=== PATIENT | female | born 1940 | race Caucasian/White ===

== ENCOUNTER 2017-10-15 10:48 | Inpatient (IN) | payer MEDICARE, OTHER ==
[2017-10-15] MEDS: NORMAL SALINE 1000 ML 1,000 ML IV PRN ×3 (10:54→20:40)
[2017-10-15] MEDS ORDERED: PROPOFOL 100 ML IV ONE (11:08)
[2017-10-15] MEDS ORDERED: FENTANYL CITRATE INJ/PF 100 MCG/2 ML AMPUL IV ONE (11:11)
[2017-10-15] MEDS ORDERED: ROCURONIUM BROMIDE INJ 50 MG/5 ML VIAL IV ONE ×2 (11:11→15:46)
[2017-10-15] MEDS ORDERED: ETOMIDATE INJ/PF 20 MG/10 ML SDV IV ONE (11:11)
[2017-10-15] MEDS ORDERED: VANCOMYCIN HCL INJ 1000 MG VIAL IV ONE (11:14)
[2017-10-15] MEDS ORDERED: PIPERACILLIN/TAZOBACTAM 3.375 GM VIAL IV ONE (11:14)
[2017-10-15] MEDS ORDERED: EPINEPHRINE INJ 1 MG/10 ML DISP.SYRIN ONE (11:21)
--- NOTE | 2017-10-15 11:27 | ER Document Report ---
ED Respiratory Problem - General Chief Complaint: Shortness Of Breath Stated Complaint: RESPIRATORY FAILURE Time Seen by Provider: 10/15/17 10:58 Notes: History obtained from EMS and family members. The patient is a 77-year-old female, past medical history lung cancer (Stage IV but stable), current smoker, COPD, presents from home after she was found to be confused and having difficulty breathing this morning by her family members. Patient was admitted to [facility] last week for pneumonia and she was discharged last night on 3 L nasal cannula. When the family members visit her this morning, they noticed cigarettes and the patient not responding. EMS was called. The patient was found to be 75% on her home 3 L nasal cannula with shallow breaths. She was bagged in route to the hospital. She was given 2 DuoNeb's and 125 mg Solu-Medrol by EMS prior to arrival. Patient arrives to the ER opening her eyes, but not following commands. She is also tachypneic in respiratory distress. - Related Data Allergies/Adverse Reactions: No Known Allergies Allergy (Verified 05/06/13 09:35) Past Medical History - General Information source: Relative, Outside Facility Records Cannot obtain history due to: Unstable vital signs - Social History Smoking Status: Current Every Day Smoker Family History: Reviewed & Not Pertinent - Past Medical History Cardiac Medical History: Reports: Hx Heart Attack Past Surgical History: Reports: Hx Cardiac Catheterization - stent in neck, Hx Cholecystectomy - Immunizations Hx Diphtheria, Pertussis, Tetanus Vaccination: Yes Review of Systems - Review of Systems -: Yes ROS unobtainable due to patient's medical condition Physical Exam - Vital signs Vitals: Resp BP Pulse Ox 23 H 150/79 H 100 10/15/17 10:55 10/15/17 10:55 10/15/17 10:55 - Notes Notes: PHYSICAL EXAMINATION: GENERAL: Ill-appearing. Respiratory distress. HEAD: Atraumatic, normocephalic. EYES: Pupils equal round and reactive to light, sclera anicteric, conjunctiva are normal. ENT: nares patent, oropharynx clear without exudates. Dry mucous membranes. NECK: Normal range of motion, supple without lymphadenopathy LUNGS: Tachypneic, shallow breaths, diffuse wheezing, decreased RLL lung sounds. HEART: Regular rate and rhythm without murmurs ABDOMEN: Soft, nontender, normoactive bowel sounds. No guarding, no rebound. No masses appreciated. EXTREMITIES: Normal range of motion, no pitting or edema. Strong distal pulses. NEUROLOGICAL: Opens eyes, does not follow commands, moves all 4 extremities SKIN: Cool, mottled. Course - Re-evaluation Re-evalutation: Patient seen immediately on arrival. With a history of stage IV lung cancer, unsure of patient's wishes. Family members cannot be easily contacted so decision was made to intubate for airway protection and due to altered mental status. She had a transient episode of hypotension that occurred after intubation and she was given small doses of push dose epinephrine. Her blood work returned as severe hypercapnic respiratory acidosis, which may have been leading to her altered mental status. She also has a right lower lobe mass and a possible infiltrate. Patient's white count is normal and lactate is normal. She is hypothermic, but the family members found her naked this morning. At this time, do not suspect pneumonia leading to her symptoms. However, broad- spectrum antibiotics were started on arrival due to patient's recent hospitalization and severe SOB. Family members came to ED after 1.5 hours since patient arrived. Spoke to family members about patient's wishes. Yesterday, her hospitalist at [facility] asked if she would want CPR and defibrillation. She agreed to this. When asked if she would want intubation, she said that she would have to think about it. 10/15/17 13:[address] Weber and will admit patient to ICU. - Vital Signs Vital signs: Temp Pulse Resp BP Pulse Ox 91.4 F L 12 94/47 L 100 10/15/17 12:30 10/15/17 12:30 10/15/17 12:30 10/15/17 12:30 - Laboratory Result Diagrams: 10/15/17 11:25 10/15/17 11:25 Laboratory results interpreted by me: 10/15/17 10/15/17 10/15/17 10:58 11:25 11:25 RBC 3.63 L Hgb 10.8 L Hct 33.4 L RDW 15.4 H Seg Neutrophils % 86.1 H Lymphocytes % 6.0 L Absolute Lymphocytes 0.4 L VBG pH VBG pCO2 VBG HCO3 Sodium 136.1 L Carbon Dioxide 33 H Anion Gap 4 L BUN 21 H Glucose 133 H POC Glucose 146 H Calcium 8.1 L Total Protein 4.5 L Albumin 2.4 L Urine Protein 10/15/17 10/15/17 11:25 11:30 RBC Hgb Hct RDW Seg Neutrophils % Lymphocytes % Absolute Lymphocytes VBG pH 7.11 L* VBG pCO2 119.6 H* VBG HCO3 37.1 H Sodium Carbon Dioxide Anion Gap BUN Glucose POC Glucose Calcium Total Protein Albumin Urine Protein 30 H - Diagnostic Test Radiology reviewed: Image reviewed, Reports reviewed Radiology results interpreted by me: CXR: ROUNDED DENSITY IN THE RIGHT LOWER LOBE SECONDARY TO MASS AND/OR INFILTRATE. LIFE LINES DESCRIBED. - EKG Interpretation by Me EKG shows normal: Sinus rhythm, [place], Intervals, QRS Complexes Additional EKG results interpreted by me: No STEMI Procedures - Intubation Orotracheal Time of Intubation: 11:27 Airway evaluation: Normal anatomy Mallampati Classification: Class 1 Medications: Etomidate, Fentanyl, Other - Rocuronium Intubation method: Orotracheal Blade type: John Blade size: 3 Equipment used: Glidescope ETT size: 7.5 ETT secured at: Lips ETT secured at (cm): 22 Breath Sounds after Intubation: Equal End tidal CO2 confirmed: Yes Ventilator settings: AC Tidal volume: 450 FiO2: 40 Respirations: 14 PEEP: 5 Post Intubation Xray: Yes Intubation Complications: No complications Critical Care Note - Critical Care Note Total time excluding time spent on procedures (mins): 65 Discharge - Discharge Clinical Impression: Respiratory failure with hypoxia and hypercapnia Qualifiers: Chronicity: acute on chronic Qualified Code(s): J96.21 - Acute and chronic respiratory failure with hypoxia Hypothermia Qualifiers: Encounter type: initial encounter Qualified Code(s): T68.XXXA - Hypothermia, initial encounter Condition: Critical Disposition: ADMITTED INPATIENT Admitting Provider: Hospitalist - [facility] Unit Admitted: ICU Referrals: BOUBACAR ACEVEDO MD [Primary Care Provider] - Follow up as needed
--- NOTE | 2017-10-15 11:27 | RADIOLOGY REPORT (SQ) ---
EXAM DESCRIPTION: CHEST SINGLE VIEW COMPLETED DATE/TIME: 10/15/2017 11:19 am REASON FOR STUDY: bed t1 sepsis protocol COMPARISON: None. EXAM PARAMETERS: NUMBER OF VIEWS: One view. TECHNIQUE: Single frontal radiographic view of the chest acquired. RADIATION DOSE: NA LIMITATIONS: None. FINDINGS: LUNGS AND PLEURA: 5 cm rounded density in the right lower lobe. Left lung clear. MEDIASTINUM AND HILAR STRUCTURES: No masses. Contour normal. HEART AND VASCULAR STRUCTURES: Heart normal in size. Normal vasculature. BONES: No acute findings. HARDWARE: Endotracheal tube with the tip located 3 cm proximal to the josé miguel. Nasogastric tube with the tip in the stomach. Surgical clips in the left axilla. OTHER: No other significant finding. IMPRESSION: ROUNDED DENSITY IN THE RIGHT LOWER LOBE SECONDARY TO MASS AND/OR INFILTRATE. LIFE LINES DESCRIBED. TECHNICAL DOCUMENTATION: JOB ID: [id number] [employer]- All Rights Reserved
[2017-10-15 11:59] LABS: ABSOLUTE LYMPHOCYTES (AUTO) 0.4 10^3/uL (0.5-4.7); ABSOLUTE MONOCYTES (AUTO) 0.5 10^3/uL (0.1-1.4); ABSOLUTE NEUT (AUTO) 5.7 10^3/uL (1.7-8.2); BASOPHILS % (AUTO) 0.1 % (0-2); HEMATOCRIT 33.4 % (36.0-47.0); HEMOGLOBIN 10.8 g/dL (12.0-15.5); MEAN CORPUSCULAR HEMOGLOBIN 29.9 pg (27.0-33.4); MEAN CORPUSCULAR HGB CONC 32.5 g/dL (32.0-36.0); MEAN CORPUSCULAR VOLUME 92 fl (80-97); MONOCYTES % (AUTO) 7.8 % (3-13); PLATELET COUNT 164 10^3/uL (150-450); RED BLOOD COUNT 3.63 10^6/uL (3.72-5.28); RED CELL DISTRIBUTION WIDTH 15.4 % (11.5-14.0); SEGMENTED NEUTROPHILS % (AUTO) 86.1 % (42-78); TOTAL CELLS COUNTED % (AUTO) 100 %; WHITE BLOOD COUNT 6.6 10^3/uL (4.0-10.5)
[2017-10-15 12:01] LABS: VENOUS BLOOD BASE EXCESS 4.1 mmol/L; VENOUS BLOOD HCO3 37.1 mmol/L (20-32)
[2017-10-15] MEDS ORDERED: KETAMINE HCL INJ 500 MG/10 ML VIAL ONE (12:02)
[2017-10-15 12:08] LABS: PROTHROMBIN TIME 13.9 SEC (11.4-15.4)
[2017-10-15 12:09] LABS: VENOUS BLOOD PCO2 119.6 mmHg (35-63); VENOUS BLOOD PH 7.11 (7.30-7.42)
[2017-10-15 12:21] LABS: ALBUMIN 2.4 g/dL (3.5-5.0); BILIRUBIN,DIRECT 0.3 mg/dL (0.0-0.4); BILIRUBIN,TOTAL 0.3 mg/dL (0.2-1.3); CALCIUM 8.1 mg/dL (8.4-10.2); GLUCOSE 133 mg/dL (75-110); TOTAL PROTEIN 4.5 g/dL (6.3-8.2)
[2017-10-15] MEDS ORDERED: IPRATROPIUM/ALBUTEROL 0.5-2.5 MG/3 ML AMPUL NEB ONE (12:24)
[2017-10-15] MEDS ORDERED: EPINEPHRINE INJ 1 MG/10 ML DISP.SYRIN IV ONE (12:24)
[2017-10-15 12:28] LABS: APPEARANCE,URINE CLEAR; BILIRUBIN,URINE NEGATIVE (NEGATIVE); COLOR,URINE YELLOW; GLUCOSE, URINE NEGATIVE (NEGATIVE); KETONES,URINE NEGATIVE (NEGATIVE); LEUKOCYTE ESTERASE,URINE NEGATIVE (NEGATIVE); NITRITE,URINE NEGATIVE (NEGATIVE); PROTEIN,URINE 30 mg/dL (NEGATIVE); URINE SPECIFIC GRAVITY 1.014; UROBILINOGEN,URINE NEGATIVE mg/dL (<2.0)
[2017-10-15 12:31] LABS: CARBON DIOXIDE 33 mmol/L (22-30); CHLORIDE 99 mmol/L (98-107); SODIUM 136.1 mmol/L (137-145)
[2017-10-15 12:34] LABS: ANION GAP 4 (5-19)
[2017-10-15 12:35] LABS: ALANINE AMINOTRANSFERASE 39 U/L (9-52); ALKALINE PHOSPHATASE 51 U/L (38-126); ASPARTATE AMINO TRANSFERASE 34 U/L (14-36); BLOOD UREA NITROGEN 21 mg/dL (7-20); POTASSIUM 4.3 mmol/L (3.6-5.0)
[2017-10-15] MEDS ORDERED: ONDANSETRON HCL INJ/PF 4 MG/2 ML SDV IV PRN (13:21)
[2017-10-15] MEDS ORDERED: VANCOMYCIN HCL 0 MG in DEXTROSE 5%-WATER 250 ML IV NR (14:00)
[2017-10-15] MEDS ORDERED: MEROPENEM 1 GM VIAL IV SCH (14:00)
[2017-10-15] MEDS ORDERED: NORMAL SALINE 1000 ML 1,000 ML IV PRN ×2 (14:33→15:55)
[2017-10-15] MEDS: IPRATROPIUM/ALBUTEROL 0.5-2.5 MG/3 ML AMPUL NEB SCH ×2 (14:40→19:59)
[2017-10-15] MEDS ORDERED: MIDAZOLAM HCL 50 MG/100 ML RTUINJ IV ONE (15:04)
--- NOTE | 2017-10-15 15:23 | RADIOLOGY REPORT (SQ) ---
EXAM DESCRIPTION: CTA CHEST COMPLETED DATE/TIME: 10/15/2017 2:58 pm REASON FOR STUDY: acute on chronic respiratory failure COMPARISON: Chest x-ray dated 10/15/2017. TECHNIQUE: CT scan of the chest performed using helical scanning technique with dynamic intravenous contrast injection. Images reviewed with lung, soft tissue and bone windows. Reconstructed coronal and sagittal MPR images reviewed. Additional 3 dimensional post-processing performed to develop Maximal Intensity Projection images (NC P). All images stored on PACS. All CT scanners at this facility use dose modulation, iterative reconstruction, and/or weight based d osing when appropriate to reduce radiation dose to as low as reasonably achievable (ALARA). [facility]: Dose Right [facility]: CareDose [facility]: Dose Right [facility]: Teradose 4D [facility]: ReFashioner CONTRAST TYPE AND DOSE: contrast/concentration: Isovue 370.00 mg/ml; Total Contrast Delivered: 63.0 ml; Total Saline Delivered: 80.0 ml Contrast bolus adequate for pulmonary arteries and aorta. RENAL FUNCTION: BUN 21 creatinine 0.53. RADIATION DOSE: CT Rad equipment meets quality standard of care and radiation dose reduction techniq ues were employed. CTDIvol: 14.3 - 16.5 mGy. DLP: 565 mGy-cm. . LIMITATIONS: None. FINDINGS: LUNGS AND PLEURA: Emphysematous changes. Chronic scarring. Irregular soft tissue mass in the left apex. Transverse measurements 2.6 x 3.3 cm and craniocaudal measurement 1.2 cm. Irregular cavitary mass in the anterior right lower lobe. Transverse measurements 4.3 x 4.8 cm. Thickened ir regular wall. Bilateral pleural effusions. AORTA AND GREAT VESSELS: No aneurysm. No dissection. HEART: No pericardial effusion. No significant coronary artery calcifications. PULMONARY ARTERIES: No emboli visualized in the main pulmonary arteries or the segmental branches. HILAR AND MEDIASTINAL STRUCTURES: No identified masses or abnormal nodes. HARDWARE: Endotracheal tube. Nasogastric tube. Clips in the soft tissues on the left. UPPER ABDOMEN: No significant findings. Limited exam. THYROID AND OTHER SOFT TISSUES: No masses. No adenopathy. BONES: No acute or significant finding. 3D MIPS: Confirm above findings. OTHER: No other significant finding. IMPRESSION: 1. NORMAL CTA OF THE CHEST. NO PULMONARY EMBOLI. 2. CAVITARY MASS IN THE ANTERIOR RIGHT LOWER LOBE WITH IRREGULAR THICKENED WALL. THIS PROBABLY REPRE SENTS NECROTIC TUMOR ALTHOUGH CAVITARY PNEUMONIA COULD BE POSSIBLE. 3. IRREGULAR SOFT TISSUE MASS IN THE APEX OF THE LEFT CHEST. THIS COULD REPRESENT APICAL SCARRING AL THOUGH MALIGNANT PROCESS SUSPECTED. 4. CHRONIC EMPHYSEMATOUS CHANGES WITH SCARRING. BILATERAL PLEURAL EFFUSIONS. COMMENT: Quality ID # [id number]: Final reports with documentation of one or more dose reduction techniques (e.g., Automated exposure control, adjustment of the mA and/or kV according to patient size, use of iterative reconstruction technique) TECHNICAL DOCUMENTATION: JOB ID: [id number] [employer]- All Rights Reserved
[2017-10-15 15:30] LABS: ARTERIAL BLOOD BASE EXCESS 5.8 mmol/L; ARTERIAL BLOOD H2CO3 2.72 mmol/L (1.05-1.35); ARTERIAL BLOOD HCO3 35.9 mmol/L (20-26); ARTERIAL BLOOD O2 SATURATION 63.1 % (94-98); ARTERIAL BLOOD PH 7.22 (7.35-7.45); ARTERIAL BLOOD TOTAL CO2 38.7 mmol/L (21-25)
[2017-10-15 15:31] LABS: ARTERIAL BLOOD FIO2 40%
[2017-10-15 15:33] LABS: ARTERIAL BLOOD PCO2 90.3 mmHg (35-45); ARTERIAL BLOOD PO2 40.9 mmHg (80-100)
[2017-10-15] MEDS: MIDAZOLAM HCL 50 MG/100 ML RTUINJ IV PRN (15:55)
[2017-10-15 15:58] LABS: INTERNATIONAL RATION (INR) 0.91; PROTHROMBIN TIME 12.9 SEC (11.4-15.4)
[2017-10-15 15:59] LABS: PARTIAL THROMBOPLASTIN TIME 25.5 SEC (23.5-35.8)
[2017-10-15] MEDS ORDERED: NORMAL SALINE 1000 ML 1,000 ML IV ONE (16:30)
[2017-10-15] MEDS ORDERED: NOREPINEPHRINE BITARTRATE INJ/PF 4 MG/4 ML SDV IV ONE (16:57)
[2017-10-15] MEDS ORDERED: DEXTROSE 5%-WATER 250 ML with NOREPINEPHRINE BITARTRATE 4 MG IV PRN ×2 (17:00)
--- NOTE | 2017-10-15 17:03 | PDOC H&P ---
History of Present Illness Admission Date/PCP: 10/15/17 13:46 BOUBACAR ACEVEDO MD Patient complains of: Unable to obtain since intubated History of Present Illness: SERGEI KENNEDY is a 77 year old female arrived to ED via EMS. Accordingly, EMS was called because patient was found by family on the floor and was unresponsive. On arrival of EMS patient was still unresponsive but was breathing. They bagged the patient until arrival to emergency room. Since there was not much improvement on overall patient status, patient was intubated. Patient was also hypothermic. Patient was discharged on October 14 from [facility] where she had an extended stay which included mechanical ventilation and treatment for pneumonia. Is my understanding that upen returning back home patient went back to smoking. Patient does have a history of stage IV lung cancer. At the time of evaluation no family members were at bedside. History gathering had been through ED physician and nursing staff. Past Medical History Cardiac Medical History: Reports: Myocardial Infarction EENT Medical History: Reports: None Neurological Medical History: Reports: None Endocrine Medical History: Reports: None Renal/ Medical History: Reports: None Malignancy Medical History: Reports: Lung Cancer Skin Medical History: Reports: None Psychiatric Medical History: Reports: None Traumatic Medical History: Reports: None Hematology: Reports: None Infectious Medical History: Reports: None Past Surgical History Past Surgical History: Reports: Cardiac Catheterization - stent in neck, Cholecystectomy Social History Smoking Status: Current Every Day Smoker - Advance Directive Resuscitation Status: Full Code Family History Family History: Reviewed & Not Pertinent Parental Family History Reviewed: Yes Children Family History Reviewed: Yes Sibling(s) Family History Reviewed.: Yes Medication/Allergy Home Medications: Albuterol Sulfate [Ventolin 0.083% Neb 2.5 mg/3 mL Ampul] 3 ml NEB Q4 10/15/17 Alprazolam [Xanax 0.25 mg Tablet] 0.25 mg PO Q8 10/15/17 Atenolol [Tenormin 50 mg Tablet] 50 mg PO DAILY 10/15/17 Simvastatin [Zocor 80 mg Tablet] 80 mg PO DAILY 10/15/17 Solifenacin Succinate [Vesicare] 5 mg PO DAILY 10/15/17 Tiotropium Henderson [Spiriva Handihaler 5 Cap/Kit (18 Mcg/Cap)] 1 puff IH DAILY 10/15/17 Allergies/Adverse Reactions: No Known Allergies Allergy (Verified 05/06/13 09:35) Review of Systems ROS unobtainable: Due to endotracheal tube Physical Exam Vital Signs: Temp Pulse Resp BP Pulse Ox 92.3 F L 12 119/58 L 98 10/15/17 13:15 10/15/17 13:15 10/15/17 13:15 10/15/17 13:15 General appearance: PRESENT: other - sedated Head exam: PRESENT: atraumatic, normocephalic Eye exam: PRESENT: conjunctiva pink, EOMI, PERRLA Ear exam: PRESENT: normal external ear exam, TM's normal bilaterally Neck exam: ABSENT: JVD, lymphadenopathy, thyromegaly Respiratory exam: PRESENT: crackles, decreased breath sounds Cardiovascular exam: PRESENT: RRR. ABSENT: diastolic murmur, systolic murmur Vascular exam: PRESENT: normal capillary refill GI/Abdominal exam: PRESENT: normal bowel sounds, soft - 3+ pitting edema Neurological exam: PRESENT: other - sedated Skin exam: PRESENT: pallor Results Impressions: Chest X-Ray 10/15/17 10:54 IMPRESSION: ROUNDED DENSITY IN THE RIGHT LOWER LOBE SECONDARY TO MASS AND/OR INFILTRATE. LIFE LINES DESCRIBED. Assessment & Plan - Diagnosis (1) Acute and chronic respiratory failure ([id number]) Qualifiers: Respiratory failure complication: hypoxia and hypercapnia Qualified Code(s) : J96.21 - Acute and chronic respiratory failure with hypoxia; J96.22 - Acute and chronic respiratory failure with hypercapnia; J96.22 - Acute and chronic respiratory failure with hypercapnia; J96.22 - Acute and chronic respiratory failure with hypercapnia Is this a current diagnosis for this admission?: Yes Plan: We will continue ventilatory support and will consult Dr. Boston to assist (2) Septic shock Is this a current diagnosis for this admission?: Yes Plan: Will start patient on norepinephrine and continue IV fluid resuscitation. (3) Lung cancer Qualifiers: Lung location: overlapping sites Is this a current diagnosis for this admission?: Yes Plan: CTA of the lung was ordered and there is extensive involvement in the right and left lung. Will address this issue with family when available since probably patient may benefit from hospice (4) Pneumonia Qualifiers: Pneumonia type: due to unspecified organism Laterality: unspecified laterality Lung location: unspecified part of lung Qualified Code(s): J18.9 - Pneumonia, unspecified organism Is this a current diagnosis for this admission?: Yes Plan: Patient will be continued on vancomycin and will place on meropenem (5) Tobacco abuse Is this a current diagnosis for this admission?: Yes Plan: Patient recuperates will provide counseling (6) COPD (chronic obstructive pulmonary disease) Qualifiers: COPD type: emphysema Emphysema type: unspecified Qualified Code(s): J43.9 - Emphysema, unspecified Is this a current diagnosis for this admission?: Yes Plan: Patient will be placed on DuoNeb's and IV steroids - Time Time Spent: 50 to 70 Minutes Medications reviewed and adjusted accordingly: Yes Anticipated discharge: Other - Unable to tell at this time but probably patient may be placed on hospice Within: Other - At the present time medical condition is critical and there is a possibility that patient may pass - Inpatient Certification Based on my medical assessment, after consideration of the patient's comorbidities, presenting symptoms, or acuity I expect that the services needed warrant INPATIENT care.: Yes I certify that my determination is in accordance with my understanding of Medicare's requirements for reasonable and necessary INPATIENT services [42 CFR 412.3e].: Yes Medical Necessity: Need Close Monitoring Due to Risk of Patient Decompensation, Need For IV Fluids, Need For Continuous Telemetry Monitoring, Need for Nebulizer Therapy and Monitoring of Response, Need for IV Antibiotics
[2017-10-15] MEDS: MEROPENEM 1 GM in NORMAL SALINE 50 ML IV SCH (17:57)
[2017-10-15] MEDS: METHYLPREDNISOLONE INJ 40 MG/1 ML SDV IV SCH (17:57)
[2017-10-15] MEDS ORDERED: MEROPENEM 1 GM in NORMAL SALINE 100 ML IV SCH (18:00)
[2017-10-15] MEDS: PANTOPRAZOLE SODIUM 40 MG VIAL IV SCH (18:00)
[2017-10-15] MEDS: HEPARIN SOD (PORCINE) 5,000 UNIT/ML 1 ML SYRINGE SUBCUT SCH (18:01)
[2017-10-15 18:20] LABS: ARTERIAL BLOOD BASE EXCESS 4.8 mmol/L; ARTERIAL BLOOD HCO3 33.3 mmol/L (20-26); ARTERIAL BLOOD O2 SATURATION 81.9 % (94-98); ARTERIAL BLOOD PO2 52.1 mmHg (80-100); ARTERIAL BLOOD TOTAL CO2 35.5 mmol/L (21-25)
[2017-10-15 18:21] LABS: ARTERIAL BLOOD FIO2 40%
[2017-10-15 18:23] LABS: ARTERIAL BLOOD PCO2 69.8 mmHg (35-45)
[2017-10-15] MEDS: PROPOFOL 100 ML IV PRN (18:46)
--- NOTE | 2017-10-15 20:13 | OPERATIVE REPORT E ---
Operative Report NAME: SERGEI KENNEDY : 1940 AGE: 77Y DATE OF SURGERY: 10/15/2017 ROOM: ED70 PREOPERATIVE DIAGNOSIS: PATIENT WITH HYPOTENSION WITH MULTIPLE MEDICAL ISSUES. EMERGENCY ROOM CONSULTATION FOR INSERTION OF CENTRAL VENOUS CATHETER FOR IV MEDICATION ADMINISTRATION AND ALSO FOR CENTRAL LINE ACCESS. POSTOPERATIVE DIAGNOSIS: PATIENT WITH HYPOTENSION WITH MULTIPLE MEDICAL ISSUES. EMERGENCY ROOM CONSULTATION FOR INSERTION OF CENTRAL VENOUS CATHETER FOR IV MEDICATION ADMINISTRATION AND ALSO FOR CENTRAL LINE ACCESS. OPERATION: Insertion of triple-lumen central line catheter through right internal jugular vein. SURGEON: CORINNA ALLRED M.D. ANESTHESIA: 1% lidocaine local. TISSUE REMOVED OR ALTERED: PROCEDURE: Procedure done at the bedside in the emergency room, after obtaining consent from patient's family. Patient was placed in a Trendelenburg position. Neck and upper chest wall cleaned and draped in sterile field. After 1% lidocaine infiltrated, with sterile technique, an intravascular ultrasound was performed. Right side internal jugular vein was identified and then it was accessed by using Seldinger technique. Through the needle, a guidewire was passed into the superior vena cava. Over the guidewire, tract was dilated, and then through the dilator tract, over the guidewire, a triple-lumen catheter inserted into the superior vena cava. Excellent venous flow through all the 3 lumens of catheter. All 3 lumens flushed with heparinized solution and catheter was secured in place. Dressings were applied. The patient tolerated the procedure very well. DICTATING PHYSICIAN: CORINNA ALLRED M.D. [id number] PHY#: [id number] 1945 ID: [id number] JOB#: [id number] ACCT: [id number] cc:CORINNA ALLRED M.D. >
--- NOTE | 2017-10-15 20:45 | RADIOLOGY REPORT (SQ) ---
EXAM DESCRIPTION: CHEST SINGLE VIEW COMPLETED DATE/TIME: 10/15/2017 7:55 pm REASON FOR STUDY: Verify placement of central line COMPARISON: CT 10/15/2017 EXAM PARAMETERS: NUMBER OF VIEWS: One view. TECHNIQUE: Single frontal radiographic view of the chest acquired. RADIATION DOSE: NA LIMITATIONS: None. FINDINGS: LUNGS AND PLEURA: Stable pulmonary exam again demonstrating a cavitary lesion within the r ight lower lobe. No pneumothorax. MEDIASTINUM AND HILAR STRUCTURES: No masses. Contour normal. HEART AND VASCULAR STRUCTURES: Heart normal in size. Normal vasculature. BONES: No acute findings. HARDWARE: An endotracheal tube terminates approximately 2 cm cranial to the josé miguel. An enteric tube is seen along the expected course of the esophagus with the tip and proximal port projecting subdiaph ragmatically within the left upper quadrant. A right cervical central vascular access catheter termi nates in the region of the superior vena cava. OTHER: Left axillary and left cervicothoracic surgical clips. IMPRESSION: 1. Stable pulmonary exam again demonstrating a cavitary lesion within the right lower l obe. 2. Endotracheal tube, enteric tube, and central vascular access catheter without evidence of complic ation. TECHNICAL DOCUMENTATION: JOB ID: [id number] [employer]- All Rights Reserved
[2017-10-16] MEDS: IPRATROPIUM/ALBUTEROL 0.5-2.5 MG/3 ML AMPUL NEB SCH ×4 (02:03→19:51)
[2017-10-16] MEDS: NORMAL SALINE 1000 ML 1,000 ML IV PRN (04:09)
[2017-10-16] MEDS: MEROPENEM 1 GM in NORMAL SALINE 50 ML IV SCH (04:09)
[2017-10-16] MEDS: METHYLPREDNISOLONE INJ 40 MG/1 ML SDV IV SCH ×3 (04:10→23:43)
[2017-10-16] MEDS: HEPARIN SOD (PORCINE) 5,000 UNIT/ML 1 ML SYRINGE SUBCUT SCH ×3 (04:10→17:23)
[2017-10-16 04:15] LABS: BLOOD UREA NITROGEN 15 mg/dL (7-20); CALCIUM 8.9 mg/dL (8.4-10.2); CARBON DIOXIDE 31 mmol/L (22-30); CHLORIDE 101 mmol/L (98-107); GLUCOSE 126 mg/dL (75-110); PHOSPHORUS 2.7 mg/dL (2.5-4.5); POTASSIUM 4.3 mmol/L (3.6-5.0); SODIUM 135.9 mmol/L (137-145)
[2017-10-16 04:29] LABS: ANION GAP 4 (5-19)
[2017-10-16] MEDS ORDERED: PROPOFOL 100 ML IV PRN (04:44)
[2017-10-16 05:29] LABS: ABSOLUTE LYMPHOCYTES (AUTO) 0.9 10^3/uL (0.5-4.7); ABSOLUTE MONOCYTES (AUTO) 1.3 10^3/uL (0.1-1.4); ABSOLUTE NEUT (AUTO) 11.5 10^3/uL (1.7-8.2); BASOPHILS % (AUTO) 0.1 % (0-2); HEMATOCRIT 35.2 % (36.0-47.0); HEMOGLOBIN 11.5 g/dL (12.0-15.5); LYMPHOCYTES % (AUTO) 6.9 % (13-45); MEAN CORPUSCULAR HEMOGLOBIN 29.7 pg (27.0-33.4); MEAN CORPUSCULAR HGB CONC 32.7 g/dL (32.0-36.0); MEAN CORPUSCULAR VOLUME 91 fl (80-97); MONOCYTES % (AUTO) 9.4 % (3-13); PLATELET COUNT 178 10^3/uL (150-450); RED BLOOD COUNT 3.87 10^6/uL (3.72-5.28); RED CELL DISTRIBUTION WIDTH 15.4 % (11.5-14.0); SEGMENTED NEUTROPHILS % (AUTO) 83.6 % (42-78); TOTAL CELLS COUNTED % (AUTO) 100 %
[2017-10-16] MEDS: PROPOFOL 100 ML IV PRN ×3 (05:35→23:41)
[2017-10-16 05:36] LABS: ARTERIAL BLOOD BASE EXCESS 6.3 mmol/L; ARTERIAL BLOOD H2CO3 1.93 mmol/L (1.05-1.35); ARTERIAL BLOOD HCO3 33.9 mmol/L (20-26); ARTERIAL BLOOD O2 SATURATION 97.3 % (94-98); ARTERIAL BLOOD PH 7.34 (7.35-7.45); ARTERIAL BLOOD PO2 104.1 mmHg (80-100); ARTERIAL BLOOD TOTAL CO2 35.9 mmol/L (21-25)
[2017-10-16 05:40] LABS: ARTERIAL BLOOD FIO2 40%
[2017-10-16 05:46] LABS: WHITE BLOOD COUNT 13.8 10^3/uL (4.0-10.5)
--- NOTE | 2017-10-16 06:46 | RADIOLOGY REPORT (SQ) ---
EXAM DESCRIPTION: CHEST SINGLE VIEW CLINICAL HISTORY: Respiratory failure COMPARISON: 10/15/2017 FINDINGS: Single frontal view of the chest. Atherosclerotic calcification aortic arch. Heart is not enlarged. NG tube curled within the abdomen. Right IJ central venous catheter tip in SVC. Endotracheal tube with tip midway between the clavicles and josé miguel. Postoperative change of the left axillary region. Left lung is relatively clear. Rounded opacity in the right lung base. No large effusion or pneumothorax. No acute osseous abnormality. Upper abdominal soft tissues are unremarkable. IMPRESSION: Stable appearance. Tubes and lines as detailed above.
[2017-10-16] MEDS ORDERED: INFLUENZA ADLT QUAD (36MOS+) 2017-18 VAC 0.5 ML SYR IM PRN (06:50)
--- NOTE | 2017-10-16 09:02 | EKG REPORT ---
SEVERITY:- ABNORMAL ECG - SINUS RHYTHM PROBABLE ANTEROSEPTAL INFARCT, AGE INDETERM LATERAL LEADS ARE ALSO INVOLVED : Confirmed by: Kwaku Landis 16-Oct-2017 09:01:27
--- NOTE | 2017-10-16 09:57 | PDOC PROGRESS REPORT ---
Subjective Progress Note for:: 10/16/17 Subjective:: Unable to take complaints since intubated and sedated Review of system Unable to obtain since intubated and sedated All significant laboratories and diagnostics have been reviewed Reason For Visit: ACUTE ON CHRONIC RESPIRATORY FAILURE Physical Exam Vital Signs: Temp Pulse Resp BP Pulse Ox 97.7 F 70 12 130/58 H 98 10/16/17 07:09 10/16/17 02:03 10/16/17 06:32 10/16/17 06:32 10/16/17 06:32 Intake & Output 10/15/17 10/16/17 10/17/17 06:59 06:59 06:59 Intake Total 1429 Output Total 1480 45 Balance -51 -45 Weight 62.3 kg General appearance: PRESENT: other - Sedated Head exam: PRESENT: atraumatic, normocephalic Eye exam: PRESENT: conjunctiva pink, EOMI, PERRLA Neck exam: PRESENT: full ROM. ABSENT: JVD, lymphadenopathy Respiratory exam: PRESENT: crackles - Soft basilar crackles, decreased breath sounds Cardiovascular exam: PRESENT: RRR. ABSENT: diastolic murmur, systolic murmur Vascular exam: PRESENT: normal capillary refill GI/Abdominal exam: PRESENT: normal bowel sounds, soft, other - Patient sedated and unable to assess for tenderness Extremities exam: PRESENT: other - 3+ edema noted to lower extremity extending to abdominal area. 2+ edema of upper extremities Neurological exam: PRESENT: other - Sedated Results Laboratory Results: 10/16/17 05:12 10/16/17 03:42 10/15/17 10/15/17 10/15/17 15:08 16:10 18:12 WBC RBC Hgb Hct MCV MCH MCHC RDW Plt Count Seg Neutrophils % Lymphocytes % Monocytes % Eosinophils % Basophils % Absolute Neutrophils Absolute Lymphocytes Absolute Monocytes Absolute Eosinophils Absolute Basophils Carbonic Acid 2.72 H 2.10 H HCO3/H2CO3 Ratio 13:1 15:1 ABG pH 7.22 L 7.30 L ABG pCO2 90.3 H* 69.8 H* ABG pO2 40.9 L* 52.1 L ABG HCO3 35.9 H 33.3 H ABG O2 Saturation 63.1 L 81.9 L ABG Base Excess 5.8 4.8 FiO2 40% 40% Sodium Potassium Chloride Carbon Dioxide Anion Gap BUN Creatinine Est GFR ( Amer) Est GFR (Non-Af Amer) Glucose Lactic Acid 1.5 Calcium Phosphorus Magnesium 10/16/17 10/16/17 10/16/17 03:42 03:42 05:12 WBC Cancelled 13.8 H D RBC Cancelled 3.87 Hgb Cancelled 11.5 L Hct Cancelled 35.2 L MCV Cancelled 91 MCH Cancelled 29.7 MCHC Cancelled 32.7 RDW Cancelled 15.4 H Plt Count Cancelled 178 Seg Neutrophils % Cancelled 83.6 H Lymphocytes % Cancelled 6.9 L Monocytes % Cancelled 9.4 Eosinophils % Cancelled 0.0 Basophils % Cancelled 0.1 Absolute Neutrophils Cancelled 11.5 H Absolute Lymphocytes Cancelled 0.9 Absolute Monocytes Cancelled 1.3 Absolute Eosinophils Cancelled 0.0 Absolute Basophils Cancelled 0.0 Carbonic Acid HCO3/H2CO3 Ratio ABG pH ABG pCO2 ABG pO2 ABG HCO3 ABG O2 Saturation ABG Base Excess FiO2 Sodium 135.9 L Potassium 4.3 Chloride 101 Carbon Dioxide 31 H Anion Gap 4 L BUN 15 Creatinine 0.58 Est GFR ( Amer) > 60 Est GFR (Non-Af Amer) > 60 Glucose 126 H Lactic Acid Calcium 8.9 Phosphorus 2.7 Magnesium 1.7 10/16/17 05:22 WBC RBC Hgb Hct MCV MCH MCHC RDW Plt Count Seg Neutrophils % Lymphocytes % Monocytes % Eosinophils % Basophils % Absolute Neutrophils Absolute Lymphocytes Absolute Monocytes Absolute Eosinophils Absolute Basophils Carbonic Acid 1.93 H HCO3/H2CO3 Ratio 17:1 ABG pH 7.34 L ABG pCO2 64.0 H ABG pO2 104.1 H ABG HCO3 33.9 H ABG O2 Saturation 97.3 ABG Base Excess 6.3 FiO2 40% Sodium Potassium Chloride Carbon Dioxide Anion Gap BUN Creatinine Est GFR ( Amer) Est GFR (Non-Af Amer) Glucose Lactic Acid Calcium Phosphorus Magnesium 10/15/17 10/15/17 10/16/17 15:33 21:25 03:42 Troponin I 0.099 0.202 0.150 Impressions: Chest/Abdomen CTA 10/15/17 00:00 IMPRESSION: 1. NORMAL CTA OF THE CHEST. NO PULMONARY EMBOLI. 2. CAVITARY MASS IN THE ANTERIOR RIGHT LOWER LOBE WITH IRREGULAR THICKENED WALL. THIS PROBABLY REPRESENTS NECROTIC TUMOR ALTHOUGH CAVITARY PNEUMONIA COULD BE POSSIBLE. 3. IRREGULAR SOFT TISSUE MASS IN THE APEX OF THE LEFT CHEST. THIS COULD REPRESENT APICAL SCARRING ALTHOUGH MALIGNANT PROCESS SUSPECTED. 4. CHRONIC EMPHYSEMATOUS CHANGES WITH SCARRING. BILATERAL PLEURAL EFFUSIONS. Chest X-Ray 10/16/17 00:00 IMPRESSION: Stable appearance. Tubes and lines as detailed above. Assessment & Plan - Diagnosis (1) Acute and chronic respiratory failure ([id number]) Qualifiers: Respiratory failure complication: hypoxia and hypercapnia Qualified Code(s) : J96.21 - Acute and chronic respiratory failure with hypoxia; J96.22 - Acute and chronic respiratory failure with hypercapnia; J96.22 - Acute and chronic respiratory failure with hypercapnia; J96.22 - Acute and chronic respiratory failure with hypercapnia Is this a current diagnosis for this admission?: Yes Plan: We will continue ventilatory support. Continue current ventilator settings. Dr. Boston consulted to assist (2) Septic shock Is this a current diagnosis for this admission?: Yes Plan: Resolved and to discontinue Levophed. Resolved and to discontinue Levophed (3) Lung cancer Qualifiers: Lung location: overlapping sites Is this a current diagnosis for this admission?: Yes Plan: CTA of the lung was ordered and there is extensive involvement in the right and left lung. Will address this issue with family when available since probably patient may benefit from hospice. To try to obtain records from [place] (4) Pneumonia Qualifiers: Pneumonia type: due to unspecified organism Laterality: unspecified laterality Lung location: unspecified part of lung Qualified Code(s): J18.9 - Pneumonia, unspecified organism Is this a current diagnosis for this admission?: Yes Plan: Patient will be continued on vancomycin and meropenem (5) Tobacco abuse Is this a current diagnosis for this admission?: Yes Plan: Patient recuperates will provide counseling (6) COPD (chronic obstructive pulmonary disease) Qualifiers: COPD type: emphysema Emphysema type: unspecified Qualified Code(s): J43.9 - Emphysema, unspecified Is this a current diagnosis for this admission?: Yes Plan: Continue DuoNeb's and IV steroids. Suspect pulmonary hypertension and will start IV Lasix. Order echocardiogram (7) HTN (hypertension) Qualifiers: Hypertension type: essential hypertension Qualified Code(s): I10 - Essential (primary) hypertension Is this a current diagnosis for this admission?: Yes Plan: Restart Tenormin as outpatient (8) Anasarca Is this a current diagnosis for this admission?: Yes Plan: Start IV Lasix and will order echocardiogram - Time Time Spent with patient: 15-24 minutes Anticipated discharge: Other - to discuss with family Within: within 72 hours - Inpatient Certification Based on my medical assessment, after consideration of the patient's comorbidities, presenting symptoms, or acuity I expect that the services needed warrant INPATIENT care.: Yes I certify that my determination is in accordance with my understanding of Medicare's requirements for reasonable and necessary INPATIENT services [42 CFR 412.3e].: Yes Medical Necessity: Need Close Monitoring Due to Risk of Patient Decompensation, Need for Nebulizer Therapy and Monitoring of Response, Need for IV Antibiotics
[2017-10-16] MEDS ORDERED: (PENDING PHARMACY ID) (Simvastatin [Zocor 80 Mg Tablet] 80 MG) PO SCH (10:00)
[2017-10-16] MEDS ORDERED: VANCOMYCIN HCL 1,250 MG in DEXTROSE 5%-WATER 250 ML IV SCH (10:00)
[2017-10-16] MEDS: FUROSEMIDE INJ/PF 20 MG/2 ML SDV IV SCH ×2 (10:29→23:41)
[2017-10-16] MEDS ORDERED: NORMAL SALINE INJ/PF 0.9% 10 ML SDV IV PRN (10:43)
[2017-10-16] MEDS ORDERED: MEROPENEM 1 GM in NORMAL SALINE 50 ML IV ONE (11:00)
[2017-10-16] MEDS: ATENOLOL 50 MG TABLET PO SCH (11:31)
[2017-10-16] MEDS: POTASSI CL 20 MEQ/D5-1/2NS 1L 1,000 ML IV PRN (11:32)
[2017-10-16] MEDS ORDERED: MIDAZOLAM HCL 50 MG/100 ML RTUINJ IV ONE (11:48)
[2017-10-16] MEDS: VANCOMYCIN HCL 1,250 MG in DEXTROSE 5%-WATER 250 ML IV SCH (11:53)
[2017-10-16] MEDS: MIDAZOLAM HCL 50 MG/100 ML RTUINJ IV PRN (11:54)
[2017-10-16] MEDS: ALPRAZOLAM 0.25 MG TABLET PO SCH ×2 (14:03→22:14)
[2017-10-16] MEDS: PANTOPRAZOLE SODIUM 40 MG VIAL IV SCH (17:22)
[2017-10-16] MEDS: MEROPENEM 1 GM in NORMAL SALINE 100 ML IV SCH (17:23)
[2017-10-16] MEDS: SIMVASTATIN 40 MG TABLET PO SCH (22:15)
[2017-10-17] MEDS: POTASSI CL 20 MEQ/D5-1/2NS 1L 1,000 ML IV PRN ×3 (01:04→21:49)
[2017-10-17] MEDS: IPRATROPIUM/ALBUTEROL 0.5-2.5 MG/3 ML AMPUL NEB SCH ×4 (01:34→20:15)
[2017-10-17] MEDS: HEPARIN SOD (PORCINE) 5,000 UNIT/ML 1 ML SYRINGE SUBCUT SCH ×3 (02:16→17:55)
[2017-10-17] MEDS: MEROPENEM 1 GM in NORMAL SALINE 100 ML IV SCH ×3 (02:16→17:55)
[2017-10-17] MEDS: MIDAZOLAM HCL 50 MG/100 ML RTUINJ IV PRN (06:42)
[2017-10-17] MEDS: ALPRAZOLAM 0.25 MG TABLET PO SCH ×2 (06:42→14:33)
[2017-10-17 07:01] LABS: ABSOLUTE LYMPHOCYTES (AUTO) 0.5 10^3/uL (0.5-4.7); ABSOLUTE MONOCYTES (AUTO) 0.5 10^3/uL (0.1-1.4); ABSOLUTE NEUT (AUTO) 7.9 10^3/uL (1.7-8.2); BASOPHILS % (AUTO) 0.2 % (0-2); HEMATOCRIT 33.6 % (36.0-47.0); HEMOGLOBIN 11.3 g/dL (12.0-15.5); LYMPHOCYTES % (AUTO) 5.3 % (13-45); MEAN CORPUSCULAR HEMOGLOBIN 30.1 pg (27.0-33.4); MEAN CORPUSCULAR HGB CONC 33.7 g/dL (32.0-36.0); MEAN CORPUSCULAR VOLUME 89 fl (80-97); MONOCYTES % (AUTO) 5.6 % (3-13); PLATELET COUNT 141 10^3/uL (150-450); RED BLOOD COUNT 3.77 10^6/uL (3.72-5.28); RED CELL DISTRIBUTION WIDTH 15.4 % (11.5-14.0); SEGMENTED NEUTROPHILS % (AUTO) 88.9 % (42-78); TOTAL CELLS COUNTED % (AUTO) 100 %; WHITE BLOOD COUNT 8.9 10^3/uL (4.0-10.5)
[2017-10-17 07:02] LABS: ARTERIAL BLOOD BASE EXCESS 14.4 mmol/L; ARTERIAL BLOOD H2CO3 1.66 mmol/L (1.05-1.35); ARTERIAL BLOOD HCO3 40.2 mmol/L (20-26); ARTERIAL BLOOD O2 SATURATION 92.5 % (94-98); ARTERIAL BLOOD PCO2 55.2 mmHg (35-45); ARTERIAL BLOOD PH 7.48 (7.35-7.45); ARTERIAL BLOOD PO2 61.1 mmHg (80-100); ARTERIAL BLOOD TOTAL CO2 41.9 mmol/L (21-25)
[2017-10-17 07:12] LABS: ARTERIAL BLOOD FIO2 30%
[2017-10-17 07:15] LABS: BLOOD UREA NITROGEN 13 mg/dL (7-20); CALCIUM 8.9 mg/dL (8.4-10.2); CHLORIDE 91 mmol/L (98-107); GLUCOSE 141 mg/dL (75-110); POTASSIUM 3.2 mmol/L (3.6-5.0); TRIGLYCERIDES 101 mg/dL (<150)
[2017-10-17 07:31] LABS: SODIUM 133.5 mmol/L (137-145)
[2017-10-17 07:43] LABS: ANION GAP 2 (5-19)
[2017-10-17 07:44] LABS: CARBON DIOXIDE 41 mmol/L (22-30)
[2017-10-17] MEDS: PROPOFOL 100 ML IV PRN ×2 (08:12→17:55)
--- NOTE | 2017-10-17 09:43 | RADIOLOGY REPORT (SQ) ---
EXAM DESCRIPTION: CHEST SINGLE VIEW COMPLETED DATE/TIME: 10/17/2017 9:31 am REASON FOR STUDY: resp. failure and pneumonia COMPARISON: 10/16/2017 EXAM PARAMETERS: NUMBER OF VIEWS: One view. TECHNIQUE: Single frontal radiographic view of the chest acquired. RADIATION DOSE: NA LIMITATIONS: None. FINDINGS: LUNGS AND PLEURA: Stable right basilar mass. Stable left apical pleural-based density. N o acute opacities. MEDIASTINUM AND HILAR STRUCTURES: No masses. Contour normal. HEART AND VASCULAR STRUCTURES: Heart normal in size. Normal vasculature. BONES: No acute findings. HARDWARE: With the ETT above the josé miguel. Nasogastric tube tip in the stomach. Venous access cathete r tip at the cavoatrial junction. OTHER: No other significant finding. IMPRESSION: No acute findings. Stable right lung mass. Support devices in expected locations. TECHNICAL DOCUMENTATION: JOB ID: [id number] [employer]- All Rights Reserved
[2017-10-17] MEDS: ATENOLOL 50 MG TABLET PO SCH (11:24)
[2017-10-17] MEDS: FUROSEMIDE INJ/PF 20 MG/2 ML SDV IV SCH (11:29)
[2017-10-17] MEDS: METHYLPREDNISOLONE INJ 40 MG/1 ML SDV IV SCH ×2 (11:29→23:16)
[2017-10-17] MEDS: VANCOMYCIN HCL 1,250 MG in DEXTROSE 5%-WATER 250 ML IV SCH (11:30)
--- NOTE | 2017-10-17 11:41 | PDOC PROGRESS REPORT ---
Subjective Progress Note for:: 10/17/17 Subjective:: Unable to take complaints since intubated and sedated Review of system Unable to obtain since intubated and sedated All significant laboratories and diagnostics have been reviewed Reason For Visit: ACUTE ON CHRONIC RESPIRATORY FAILURE Physical Exam Vital Signs: Temp Pulse Resp BP Pulse Ox 97.5 F 70 14 104/51 L 94 10/17/17 07:14 10/17/17 01:34 10/17/17 03:29 10/17/17 03:29 10/17/17 03:56 Intake & Output 10/16/17 10/17/17 10/18/17 06:59 06:59 06:59 Intake Total 1429 1703 Output Total 1480 4620 325 Balance -51 -2917 -325 Weight 62.3 kg 60.9 kg General appearance: PRESENT: other - sedated Head exam: PRESENT: atraumatic, normocephalic Eye exam: PRESENT: EOMI, PERRLA Neck exam: ABSENT: JVD, lymphadenopathy, tenderness Respiratory exam: PRESENT: clear to auscultation tameka Cardiovascular exam: PRESENT: RRR, systolic murmur. ABSENT: diastolic murmur Vascular exam: PRESENT: normal capillary refill GI/Abdominal exam: PRESENT: normal bowel sounds, soft Extremities exam: PRESENT: full ROM. ABSENT: pedal edema Neurological exam: PRESENT: alert, awake, oriented to person, oriented to place , oriented to time, oriented to situation, CN II-XII grossly intact Psychiatric exam: PRESENT: appropriate affect, normal mood Skin exam: PRESENT: intact, normal color Results Laboratory Results: 10/17/17 06:43 10/17/17 10/17/17 06:43 06:43 WBC 8.9 RBC 3.77 Hgb 11.3 L Hct 33.6 L MCV 89 MCH 30.1 MCHC 33.7 RDW 15.4 H Plt Count 141 L Seg Neutrophils % 88.9 H Lymphocytes % 5.3 L Monocytes % 5.6 Eosinophils % 0.0 Basophils % 0.2 Absolute Neutrophils 7.9 Absolute Lymphocytes 0.5 Absolute Monocytes 0.5 Absolute Eosinophils 0.0 Absolute Basophils 0.0 Carbonic Acid 1.66 H HCO3/H2CO3 Ratio 24:1 ABG pH 7.48 H ABG pCO2 55.2 H ABG pO2 61.1 L ABG HCO3 40.2 H ABG O2 Saturation 92.5 L ABG Base Excess 14.4 FiO2 30% 10/15/17 10/15/17 10/16/17 15:33 21:25 03:42 Troponin I 0.099 0.202 0.150 Impressions: Chest/Abdomen CTA 10/15/17 00:00 IMPRESSION: 1. NORMAL CTA OF THE CHEST. NO PULMONARY EMBOLI. 2. CAVITARY MASS IN THE ANTERIOR RIGHT LOWER LOBE WITH IRREGULAR THICKENED WALL. THIS PROBABLY REPRESENTS NECROTIC TUMOR ALTHOUGH CAVITARY PNEUMONIA COULD BE POSSIBLE. 3. IRREGULAR SOFT TISSUE MASS IN THE APEX OF THE LEFT CHEST. THIS COULD REPRESENT APICAL SCARRING ALTHOUGH MALIGNANT PROCESS SUSPECTED. 4. CHRONIC EMPHYSEMATOUS CHANGES WITH SCARRING. BILATERAL PLEURAL EFFUSIONS. Chest X-Ray 10/16/17 00:00 IMPRESSION: Stable appearance. Tubes and lines as detailed above. Assessment & Plan - Diagnosis (1) Acute and chronic respiratory failure ([id number]) Qualifiers: Respiratory failure complication: hypoxia and hypercapnia Qualified Code(s) : J96.21 - Acute and chronic respiratory failure with hypoxia; J96.22 - Acute and chronic respiratory failure with hypercapnia; J96.22 - Acute and chronic respiratory failure with hypercapnia; J96.22 - Acute and chronic respiratory failure with hypercapnia Is this a current diagnosis for this admission?: Yes Plan: We will continue ventilatory support. Continue current ventilator settings. Dr. Boston consulted to assist. Discontinue versed drip (2) Septic shock Is this a current diagnosis for this admission?: Yes Plan: Resolved (3) Lung cancer Qualifiers: Lung location: overlapping sites Is this a current diagnosis for this admission?: Yes Plan: CTA of the lung was ordered and there is extensive involvement in the right and left lung. (4) Pneumonia Qualifiers: Pneumonia type: due to unspecified organism Laterality: unspecified laterality Lung location: unspecified part of lung Qualified Code(s): J18.9 - Pneumonia, unspecified organism Is this a current diagnosis for this admission?: Yes Plan: Continue meropenem and discontinue vancomycin (5) Tobacco abuse Is this a current diagnosis for this admission?: Yes Plan: Patient recuperates will provide counseling (6) COPD (chronic obstructive pulmonary disease) Qualifiers: COPD type: emphysema Emphysema type: unspecified Qualified Code(s): J43.9 - Emphysema, unspecified Is this a current diagnosis for this admission?: Yes Plan: Continue DuoNeb's and IV steroids. Will decrease Lasix IV. Echocardiogram result pending (7) HTN (hypertension) Qualifiers: Hypertension type: essential hypertension Qualified Code(s): I10 - Essential (primary) hypertension Is this a current diagnosis for this admission?: Yes Plan: Continue current management (8) Anasarca Is this a current diagnosis for this admission?: Yes Plan: Improving. Will decrease Lasix IV (9) Hypokalemia Is this a current diagnosis for this admission?: Yes Plan: Will supplement NG and trend - Time Time Spent with patient: 15-24 minutes Medications reviewed and adjusted accordingly: Yes Anticipated discharge: Home with Homehealth Within: within 72 hours - Inpatient Certification Based on my medical assessment, after consideration of the patient's comorbidities, presenting symptoms, or acuity I expect that the services needed warrant INPATIENT care.: Yes I certify that my determination is in accordance with my understanding of Medicare's requirements for reasonable and necessary INPATIENT services [42 CFR 412.3e].: Yes Medical Necessity: Need Close Monitoring Due to Risk of Patient Decompensation, Need for Nebulizer Therapy and Monitoring of Response, Need for IV Antibiotics
[2017-10-17 12:23] LABS: ARTERIAL BLOOD BASE EXCESS 14.2 mmol/L; ARTERIAL BLOOD FIO2 30%; ARTERIAL BLOOD H2CO3 1.42 mmol/L (1.05-1.35); ARTERIAL BLOOD HCO3 38.6 mmol/L (20-26); ARTERIAL BLOOD O2 SATURATION 92.3 % (94-98); ARTERIAL BLOOD PCO2 47.1 mmHg (35-45); ARTERIAL BLOOD PH 7.53 (7.35-7.45); ARTERIAL BLOOD PO2 57.4 mmHg (80-100)
[2017-10-17] MEDS ORDERED: POTASSIUM CHLORIDE 20 MEQ/15 ML UDCUP PO SCH (12:30)
--- NOTE | 2017-10-17 13:01 | XCELERA REPORT ---
[address] [address] Transthoracic Echocardiogram Report Name: SERGEI KENNEDY Age: 77 yrs Gender: Female : 1940 Patient Status: Inpatient Patient Location: ICU^601^A Study Date: 10/17/2017 10:54 AM Height: 62 in Weight: 137 lb BSA: 1.6 m2 Procedure: A complete two-dimensional transthoracic echocardiogram was performed (2D, M-mode, spectral and color flow Doppler). The study was technically adequate with some images being suboptimal in quality. Reason For Study: anasarca Ordering Physician: BK HUYNH Performed By: Lizeth Hernandez Interpretation Summary Left ventricular systolic function is mild to moderately reduced. LV EF is 40% Doppler measurements suggest pseudonormalized left ventricular relaxation, which is associated with grade II/IV or mild to moderate diastolic dysfunction There is borderline concentric left ventricular hypertrophy. The left ventricle is grossly normal size. There is apical wall akinesis The right ventricle is normal in size, thickness and function The right ventricular systolic function is normal. The right atrium is normal in size The left atrial size is normal. There is no mitral valve stenosis. There is a trace to mild amount of mitral regurgitation There is mild aortic stenosis There is a peak gradient of 25 mm of Hg. There is a trace amount of aortic regurgitation There is a trace to mild amount of tricuspid regurgitation There is mild to moderate pulmonary hypertension by echo Right ventricular systolic pressure is estimated to be elevated at 40- 50mmHg. The aortic root is not well visualized but is probably normal size. The inferior vena cava appeared dilated and did not change with respiration (RAP > 20 mmHg) Minimal pericardial effusion. MMode/2D Measurements & Calculations RVDd: 2.5 cm LVIDd: 4.8 cm FS: 22.7 % Ao root diam: IVSd: 0.79 cm LVIDs: 3.7 cm EDV(Teich): 2.4 cm LVPWd: 0.79 cm 109.7 ml Ao root area: ESV(Teich): 59.7 ml 4.5 cm2 EF(Teich): 45.6 % LA dimension: 2.9 cm LVOT diam: LVLd ap4: 7.4 cm SV(MOD-sp4): 2.0 cm EDV(MOD-sp4): 39.0 ml LVOT area: 75.0 ml LVLs ap4: 6.8 cm 3.1 cm2 ESV(MOD-sp4): 36.0 ml EF(MOD-sp4): 52.0 % Doppler Measurements & Calculations MV E max ammon: MV P1/2t max ammon: Ao V2 max: LV V1 max P.0 cm/sec 76.5 cm/sec 243.8 cm/sec 4.5 mmHg MV A max ammon: MV P1/2t: 83.0 msec Ao max PG: LV V1 mean P.8 cm/sec MVA(P1/2t): 2.7 cm2 23.8 mmHg 2.5 mmHg MV E/A: 0.86 MV dec slope: Ao V2 mean: LV V1 max: 270.0 cm/sec2 162.4 cm/sec 106.1 cm/sec MV dec time: Ao mean PG: LV V1 mean: 0.26 sec 12.2 mmHg 72.9 cm/sec Ao V2 VTI: 48.5 cmLV V1 VTI: [place](I,D): 1.6 cm2 24.4 cm [place](V,D): 1.4 cm2 SV(LVOT): 76.0 ml PA V2 max: PI end-d ammon: TR max ammon: 117.0 cm/sec 143.9 cm/sec 287.8 cm/sec PA max P.5 mmHg TR max P.1 mmHg Left Ventricle The left ventricle is grossly normal size. There is borderline concentric left ventricular hypertrophy. Left ventricular systolic function is mild to moderately reduced. LV EF is 40%. Doppler measurements suggest pseudonormalized left ventricular relaxation, which is associated with grade II/IV or mild to moderate diastolic dysfunction. There is apical wall akinesis. Right Ventricle The right ventricle is normal in size, thickness and function. There is normal right ventricular wall thickness. The right ventricular systolic function is normal. Atria The right atrium is normal in size. The left atrial size is normal. Interarterial septum not well visualized and not well dopplered. Cannot comment on ASD/PFO presence. Mitral Valve There is mild mitral leaflet calcification. There is mild to moderate mitral annular calcification. There is no mitral valve stenosis. There is a trace to mild amount of mitral regurgitation. Aortic Valve The aortic valve is mildly calcified. There is mild aortic stenosis. There is a peak gradient of 25 mm of Hg. There is a trace amount of aortic regurgitation. Tricuspid Valve The tricuspid valve is not well visualized, but is grossly normal. There is no tricuspid stenosis. There is a trace to mild amount of tricuspid regurgitation. There is mild to moderate pulmonary hypertension by echo. Right ventricular systolic pressure is estimated to be elevated at 40- 50mmHg. Pulmonic Valve The pulmonic valve is not well visualized. Great Vessels The aortic root is not well visualized but is probably normal size. The inferior vena cava appeared dilated and did not change with respiration (RAP > 20 mmHg). Effusions Minimal pericardial effusion. : BK HUYNH > Kwaku Landis
--- NOTE | 2017-10-17 15:16 | EKG REPORT ---
SEVERITY:- ABNORMAL ECG - SINUS TACHYCARDIA LVH WITH SECONDARY REPOLARIZATION ABNORMALITY ANTERIOR ST ELEVATION, PROBABLY DUE TO LVH can not R/O ACUTE ANTERIOR MA : Confirmed by: Kwaku Landis 17-Oct-2017 15:16:16
[2017-10-17] MEDS ORDERED: ALPRAZOLAM 0.25 MG TABLET PO SCH (15:44)
[2017-10-17] MEDS: HYDROMORPHONE HCL INJ/PF 2 MG/ML AMPULE IV PRN (16:17)
--- NOTE | 2017-10-17 16:38 | PDOC CONSULTATION ---
Consultation Consult Date: 10/16/17 Attending physician:: RADHA ANTHONY Consult reason:: resp fail pna History of Present Illness Admission Date/PCP: 10/15/17 13:46 BOUBACAR ACEVEDO MD History of Present Illness: all info from chart as patient intubated:SERGEI KENNEDY is a 77 year old female arrived to ED via EMS. Accordingly, EMS was called because patient was found by family on the floor and was unresponsive. On arrival of EMS patient was still unresponsive but was breathing. They bagged the patient until arrival to emergency room. Since there was not much improvement on overall patient status, patient was intubated. Patient was also hypothermic. Patient was discharged on October 14 from [facility] where she had an extended stay which included mechanical ventilation and treatment for pneumonia. Is my understanding that upen returning back home patient went back to smoking. Patient does have a history of stage IV lung cancer. Past Medical History Cardiac Medical History: Reports: Myocardial Infarction Pulmonary Medical History: Reports: Chronic Obstructive Pulmonary Disease (COPD) EENT Medical History: Reports: None Neurological Medical History: Reports: None Endocrine Medical History: Reports: None Renal/ Medical History: Reports: None Malignancy Medical History: Reports: Lung Cancer Skin Medical History: Reports: None Psychiatric Medical History: Reports: None Traumatic Medical History: Reports: None Hematology: Reports: None Infectious Medical History: Reports: None Past Surgical History Past Surgical History: Reports: Cardiac Catheterization - stent in neck, Cholecystectomy Social History Information Source: [facility] Records Smoking Status: Current Every Day Smoker Hx Recreational Drug Use: No Hx Prescription Drug Abuse: No Have you had any respiratory illnesses as a child?: No Have you travelled outside of [place] in the past 12 months?: No - Advance Directive Resuscitation Status: Full Code Family History Parental Family History Reviewed: No Children Family History Reviewed: No Sibling(s) Family History Reviewed.: No Medication/Allergy Home Medications: Albuterol Sulfate [Ventolin 0.083% Neb 2.5 mg/3 mL Ampul] 3 ml NEB Q4 10/15/17 Alprazolam [Xanax 0.25 mg Tablet] 0.25 mg PO Q8 10/15/17 Atenolol [Tenormin 50 mg Tablet] 50 mg PO DAILY 10/15/17 Simvastatin [Zocor 80 mg Tablet] 80 mg PO DAILY 10/15/17 Solifenacin Succinate [Vesicare] 5 mg PO DAILY 10/15/17 Tiotropium Anderson [Spiriva Handihaler 5 Cap/Kit (18 Mcg/Cap)] 1 puff IH DAILY 10/15/17 Allergies/Adverse Reactions: No Known Allergies Allergy (Verified 05/06/13 09:35) Review of Systems ROS unobtainable: Due to endotracheal tube, Due to mental status Physical Exam Vital Signs: Temp Pulse Resp BP Pulse Ox 97.9 F 97 14 130/58 H 95 10/16/17 10:00 10/16/17 08:35 10/16/17 08:35 10/16/17 06:32 10/16/17 08:35 Intake & Output 10/15/17 10/16/17 10/17/17 06:59 06:59 06:59 Intake Total 1429 Output Total 1480 135 Balance -51 -135 Weight 62.3 kg General appearance: PRESENT: no acute distress, disheveled, well-developed. ABSENT: cooperative, mild distress, morbidly obese, severe distress Head exam: PRESENT: atraumatic, normocephalic Eye exam: PRESENT: conjunctiva pale. ABSENT: conjunctival injection, conjunctiva pink, EOMI, nystagmus, periorbital swelling Mouth exam: PRESENT: dry mucosa, neck supple, tongue midline, other - ET tube in place. ABSENT: laceration, moist Neck exam: ABSENT: carotid bruit, JVD, lymphadenopathy, thyromegaly, tracheal deviation, tracheostomy Respiratory exam: PRESENT: crackles, rhonchi, symmetrical, unlabored. ABSENT: accessory muscle use, chest wall tenderness, clear to auscultation tameka, decreased breath sounds, prolonged expiratory phas, retraction, stridor, tachypnea Cardiovascular exam: PRESENT: RRR, +S1, +S2, systolic murmur - 2/6 holo-systolic Pulses: PRESENT: normal radial pulses GI/Abdominal exam: PRESENT: diminished bowel sounds, soft Gentrourinary exam: PRESENT: indwelling catheter Extremities exam: ABSENT: clubbing, joint swelling Musculoskeletal exam: ABSENT: deformity, dislocation Neurological exam: ABSENT: alert, awake, oriented to person, oriented to place, oriented to time, oriented to situation Skin exam: PRESENT: dry, warm Results Laboratory Results: 10/16/17 05:12 10/16/17 03:42 0210/15/17 10/15/17 15:08 16:10 18:12 WBC RBC Hgb Hct MCV MCH MCHC RDW Plt Count Seg Neutrophils % Lymphocytes % Monocytes % Eosinophils % Basophils % Absolute Neutrophils Absolute Lymphocytes Absolute Monocytes Absolute Eosinophils Absolute Basophils Carbonic Acid 2.72 H 2.10 H HCO3/H2CO3 Ratio 13:1 15:1 ABG pH 7.22 L 7.30 L ABG pCO2 90.3 H* 69.8 H* ABG pO2 40.9 L* 52.1 L ABG HCO3 35.9 H 33.3 H ABG O2 Saturation 63.1 L 81.9 L ABG Base Excess 5.8 4.8 FiO2 40% 40% Sodium Potassium Chloride Carbon Dioxide Anion Gap BUN Creatinine Est GFR ( Amer) Est GFR (Non-Af Amer) Glucose Lactic Acid 1.5 Calcium Phosphorus Magnesium 10/16/17 10/16/17 10/16/17 03:42 03:42 05:12 WBC Cancelled 13.8 H D RBC Cancelled 3.87 Hgb Cancelled 11.5 L Hct Cancelled 35.2 L MCV Cancelled 91 MCH Cancelled 29.7 MCHC Cancelled 32.7 RDW Cancelled 15.4 H Plt Count Cancelled 178 Seg Neutrophils % Cancelled 83.6 H Lymphocytes % Cancelled 6.9 L Monocytes % Cancelled 9.4 Eosinophils % Cancelled 0.0 Basophils % Cancelled 0.1 Absolute Neutrophils Cancelled 11.5 H Absolute Lymphocytes Cancelled 0.9 Absolute Monocytes Cancelled 1.3 Absolute Eosinophils Cancelled 0.0 Absolute Basophils Cancelled 0.0 Carbonic Acid HCO3/H2CO3 Ratio ABG pH ABG pCO2 ABG pO2 ABG HCO3 ABG O2 Saturation ABG Base Excess FiO2 Sodium 135.9 L Potassium 4.3 Chloride 101 Carbon Dioxide 31 H Anion Gap 4 L BUN 15 Creatinine 0.58 Est GFR ( Amer) > 60 Est GFR (Non-Af Amer) > 60 Glucose 126 H Lactic Acid Calcium 8.9 Phosphorus 2.7 Magnesium 1.7 10/16/17 05:22 WBC RBC Hgb Hct MCV MCH MCHC RDW Plt Count Seg Neutrophils % Lymphocytes % Monocytes % Eosinophils % Basophils % Absolute Neutrophils Absolute Lymphocytes Absolute Monocytes Absolute Eosinophils Absolute Basophils Carbonic Acid 1.93 H HCO3/H2CO3 Ratio 17:1 ABG pH 7.34 L ABG pCO2 64.0 H ABG pO2 104.1 H ABG HCO3 33.9 H ABG O2 Saturation 97.3 ABG Base Excess 6.3 FiO2 40% Sodium Potassium Chloride Carbon Dioxide Anion Gap BUN Creatinine Est GFR ( Amer) Est GFR (Non-Af Amer) Glucose Lactic Acid Calcium Phosphorus Magnesium 10/15/17 10/15/17 10/16/17 15:33 21:25 03:42 Troponin I 0.099 0.202 0.150 Impressions: Chest/Abdomen CTA 10/15/17 00:00 IMPRESSION: 1. NORMAL CTA OF THE CHEST. NO PULMONARY EMBOLI. 2. CAVITARY MASS IN THE ANTERIOR RIGHT LOWER LOBE WITH IRREGULAR THICKENED WALL. THIS PROBABLY REPRESENTS NECROTIC TUMOR ALTHOUGH CAVITARY PNEUMONIA COULD BE POSSIBLE. 3. IRREGULAR SOFT TISSUE MASS IN THE APEX OF THE LEFT CHEST. THIS COULD REPRESENT APICAL SCARRING ALTHOUGH MALIGNANT PROCESS SUSPECTED. 4. CHRONIC EMPHYSEMATOUS CHANGES WITH SCARRING. BILATERAL PLEURAL EFFUSIONS. Chest X-Ray 10/16/17 00:00 IMPRESSION: Stable appearance. Tubes and lines as detailed above. Assessment & Plan - Diagnosis (1) Acute and chronic respiratory failure ([id number]) Qualifiers: Respiratory failure complication: hypoxia and hypercapnia Qualified Code(s) : J96.21 - Acute and chronic respiratory failure with hypoxia; J96.22 - Acute and chronic respiratory failure with hypercapnia; J96.22 - Acute and chronic respiratory failure with hypercapnia; J96.22 - Acute and chronic respiratory failure with hypercapnia Is this a current diagnosis for this admission?: Yes Plan: Supplemental oxygen and ventilation maintaining at or near as best as possible her baseline (2) COPD (chronic obstructive pulmonary disease) Qualifiers: COPD type: emphysema Emphysema type: unspecified Qualified Code(s): J43.9 - Emphysema, unspecified Is this a current diagnosis for this admission?: Yes Plan: Continue current bronchodilator therapy (3) Lung cancer Qualifiers: Lung location: overlapping sites Is this a current diagnosis for this admission?: Yes Plan: Stable (4) Tobacco abuse Is this a current diagnosis for this admission?: Yes Plan: Transdermal nicotine - Time Total Critical Time (Minutes): 55
--- NOTE | 2017-10-17 16:46 | PDOC PROGRESS REPORT ---
Subjective Progress Note for:: 10/17/17 Subjective:: intubated Reason For Visit: ACUTE ON CHRONIC RESPIRATORY FAILURE Physical Exam Vital Signs: Temp Pulse Resp BP Pulse Ox 97.5 F 72 14 123/56 L 96 10/17/17 07:14 10/17/17 08:00 10/17/17 07:29 10/17/17 07:29 10/17/17 07:29 Intake & Output 10/16/17 10/17/17 10/18/17 06:59 06:59 06:59 Intake Total 1429 3325 Output Total 1480 4620 325 Balance -51 -1295 -325 Weight 62.3 kg 60.9 kg General appearance: PRESENT: no acute distress, disheveled, well-developed. ABSENT: cooperative Head exam: PRESENT: atraumatic, normocephalic Eye exam: PRESENT: conjunctiva pale. ABSENT: conjunctival injection, conjunctiva pink, EOMI, nystagmus, periorbital swelling Mouth exam: PRESENT: dry mucosa, neck supple. ABSENT: laceration, moist Neck exam: ABSENT: carotid bruit, JVD, lymphadenopathy, thyromegaly, tracheal deviation, tracheostomy Respiratory exam: PRESENT: rhonchi, symmetrical, unlabored. ABSENT: decreased breath sounds, prolonged expiratory phas Cardiovascular exam: PRESENT: RRR, +S1, +S2 Pulses: PRESENT: normal radial pulses GI/Abdominal exam: PRESENT: diminished bowel sounds, soft Gentrourinary exam: PRESENT: indwelling catheter Extremities exam: PRESENT: joint swelling. ABSENT: clubbing Musculoskeletal exam: ABSENT: deformity, dislocation, full ROM Neurological exam: ABSENT: alert, awake Skin exam: PRESENT: dry, warm Results Laboratory Results: 10/17/17 06:43 10/17/17 06:43 10/17/17 10/17/17 10/17/17 06:43 06:43 06:43 WBC 8.9 RBC 3.77 Hgb 11.3 L Hct 33.6 L MCV 89 MCH 30.1 MCHC 33.7 RDW 15.4 H Plt Count 141 L Seg Neutrophils % 88.9 H Lymphocytes % 5.3 L Monocytes % 5.6 Eosinophils % 0.0 Basophils % 0.2 Absolute Neutrophils 7.9 Absolute Lymphocytes 0.5 Absolute Monocytes 0.5 Absolute Eosinophils 0.0 Absolute Basophils 0.0 Carbonic Acid 1.66 H HCO3/H2CO3 Ratio 24:1 ABG pH 7.48 H ABG pCO2 55.2 H ABG pO2 61.1 L ABG HCO3 40.2 H ABG O2 Saturation 92.5 L ABG Base Excess 14.4 FiO2 30% Sodium 133.5 L Potassium 3.2 L Chloride 91 L Carbon Dioxide 41 H* Anion Gap 2 L BUN 13 Creatinine 0.55 Est GFR ( Amer) > 60 Est GFR (Non-Af Amer) > 60 Glucose 141 H Calcium 8.9 Magnesium 1.6 Triglycerides 101 10/15/17 10/15/17 10/16/17 15:33 21:25 03:42 Troponin I 0.099 0.202 0.150 Impressions: Chest/Abdomen CTA 10/15/17 00:00 IMPRESSION: 1. NORMAL CTA OF THE CHEST. NO PULMONARY EMBOLI. 2. CAVITARY MASS IN THE ANTERIOR RIGHT LOWER LOBE WITH IRREGULAR THICKENED WALL. THIS PROBABLY REPRESENTS NECROTIC TUMOR ALTHOUGH CAVITARY PNEUMONIA COULD BE POSSIBLE. 3. IRREGULAR SOFT TISSUE MASS IN THE APEX OF THE LEFT CHEST. THIS COULD REPRESENT APICAL SCARRING ALTHOUGH MALIGNANT PROCESS SUSPECTED. 4. CHRONIC EMPHYSEMATOUS CHANGES WITH SCARRING. BILATERAL PLEURAL EFFUSIONS. Chest X-Ray 10/16/17 00:00 IMPRESSION: Stable appearance. Tubes and lines as detailed above. Assessment & Plan - Diagnosis (1) Acute and chronic respiratory failure ([id number]) Qualifiers: Respiratory failure complication: hypoxia and hypercapnia Qualified Code(s) : J96.21 - Acute and chronic respiratory failure with hypoxia; J96.22 - Acute and chronic respiratory failure with hypercapnia; J96.22 - Acute and chronic respiratory failure with hypercapnia; J96.22 - Acute and chronic respiratory failure with hypercapnia Is this a current diagnosis for this admission?: Yes Plan: improving (2) Lung cancer Qualifiers: Lung location: overlapping sites Is this a current diagnosis for this admission?: Yes Plan: as per oncology (3) Pneumonia Qualifiers: Pneumonia type: due to unspecified organism Laterality: unspecified laterality Lung location: unspecified part of lung Qualified Code(s): J18.9 - Pneumonia, unspecified organism Is this a current diagnosis for this admission?: Yes Plan: carmel species no bacterial pathogens noted (4) Tobacco abuse Is this a current diagnosis for this admission?: Yes Plan: Transdermal nicotine - Time Total Critical Time (Minutes): 45
[2017-10-17] MEDS: PANTOPRAZOLE SODIUM 40 MG VIAL IV SCH (17:55)
[2017-10-17] MEDS: SIMVASTATIN 40 MG TABLET PO SCH (21:48)
[2017-10-17] MEDS: ALPRAZOLAM 0.5 MG TABLET PO SCH (21:48)
[2017-10-18] MEDS: IPRATROPIUM/ALBUTEROL 0.5-2.5 MG/3 ML AMPUL NEB SCH ×4 (02:41→20:13)
[2017-10-18] MEDS: MEROPENEM 1 GM in NORMAL SALINE 100 ML IV SCH ×3 (02:49→17:17)
[2017-10-18] MEDS: PROPOFOL 100 ML IV PRN ×2 (02:49→06:25)
[2017-10-18] MEDS: HEPARIN SOD (PORCINE) 5,000 UNIT/ML 1 ML SYRINGE SUBCUT SCH ×3 (02:50→17:16)
[2017-10-18] MEDS: ALPRAZOLAM 0.5 MG TABLET PO SCH (06:24)
[2017-10-18 06:43] LABS: HEMATOCRIT 33.1 % (36.0-47.0); MEAN CORPUSCULAR HEMOGLOBIN 29.6 pg (27.0-33.4); MEAN CORPUSCULAR HGB CONC 33.2 g/dL (32.0-36.0); MEAN CORPUSCULAR VOLUME 89 fl (80-97); PLATELET COUNT 126 10^3/uL (150-450); RED BLOOD COUNT 3.71 10^6/uL (3.72-5.28); RED CELL DISTRIBUTION WIDTH 15.3 % (11.5-14.0); WHITE BLOOD COUNT 11.9 10^3/uL (4.0-10.5)
[2017-10-18 06:46] LABS: ARTERIAL BLOOD BASE EXCESS 11.3 mmol/L; ARTERIAL BLOOD HCO3 37.4 mmol/L (20-26); ARTERIAL BLOOD O2 SATURATION 99.6 % (94-98); ARTERIAL BLOOD PCO2 56.5 mmHg (35-45); ARTERIAL BLOOD PH 7.44 (7.35-7.45); ARTERIAL BLOOD PO2 252.4 mmHg (80-100); ARTERIAL BLOOD TOTAL CO2 39.2 mmol/L (21-25)
[2017-10-18 06:47] LABS: ARTERIAL BLOOD FIO2 60%
[2017-10-18 07:18] LABS: ALANINE AMINOTRANSFERASE 37 U/L (9-52); ALBUMIN 2.5 g/dL (3.5-5.0); ALKALINE PHOSPHATASE 61 U/L (38-126); ASPARTATE AMINO TRANSFERASE 56 U/L (14-36); BILIRUBIN,TOTAL 0.1 mg/dL (0.2-1.3); BLOOD UREA NITROGEN 17 mg/dL (7-20); CALCIUM 8.6 mg/dL (8.4-10.2); CHLORIDE 93 mmol/L (98-107); GLUCOSE 163 mg/dL (75-110); SODIUM 135.4 mmol/L (137-145); TOTAL PROTEIN 4.2 g/dL (6.3-8.2)
[2017-10-18 07:24] LABS: ABSOLUTE LYMPHOCYTES# (MANUAL) 0.2 10^3/uL (0.5-4.7); ABSOLUTE MONOCYTES # (MANUAL) 0.8 10^3/uL (0.1-1.4); ABSOLUTE NEUTROPHILS# (MANUAL) 10.8 10^3/uL (1.7-8.2); BASOPHILS % (MANUAL) 0 % (0-2); EOSINOPHILS % (MANUAL) 0 % (0-6); LYMPHOCYTES % (MANUAL) 2 % (13-45); MONOCYTES % (MANUAL) 7 % (3-13); SEGMENTED NEUTROPHILS % (MAN) 91 % (42-78); TOTAL CELLS COUNTED 100
[2017-10-18 07:25] LABS: ANISOCYTOSIS SLIGHT; PLATELET COMMENT DECREASED; TOXIC GRANULATION SLIGHT
[2017-10-18 07:35] LABS: POTASSIUM 4.2 mmol/L (3.6-5.0)
[2017-10-18 07:36] LABS: ANION GAP 2 (5-19)
[2017-10-18 07:37] LABS: CARBON DIOXIDE 40 mmol/L (22-30)
[2017-10-18] MEDS: POTASSI CL 20 MEQ/D5-1/2NS 1L 1,000 ML IV PRN ×2 (08:42→19:31)
[2017-10-18] MEDS ORDERED: FUROSEMIDE INJ/PF 20 MG/2 ML SDV IV SCH (10:00)
[2017-10-18] MEDS ORDERED: LINEZOLID 600 MG TABLET PO SCH (10:00)
[2017-10-18] MEDS ORDERED: FUROSEMIDE 20 MG TABLET PO SCH (10:00)
[2017-10-18] MEDS: HYDROMORPHONE HCL INJ/PF 2 MG/ML AMPULE IV PRN ×2 (10:29→23:55)
[2017-10-18] MEDS: METHYLPREDNISOLONE INJ 40 MG/1 ML SDV IV SCH ×2 (11:34→23:55)
[2017-10-18] MEDS: ATENOLOL 50 MG TABLET PO SCH (11:39)
[2017-10-18] MEDS ORDERED: ALPRAZOLAM 0.5 MG TABLET PO PRN (12:21)
--- NOTE | 2017-10-18 12:30 | PDOC PROGRESS REPORT ---
Subjective Progress Note for:: 10/18/17 Subjective:: Still intubated but awake today. No complaints Review of system All organ systems evaluated and negative except as in subjective All significant laboratories and diagnostics have been reviewed Reason For Visit: ACUTE ON CHRONIC RESPIRATORY FAILURE Physical Exam Vital Signs: Temp Pulse Resp BP Pulse Ox 98.1 F 106 H 18 93/43 L 99 10/18/17 05:10 10/18/17 02:41 10/18/17 06:00 10/18/17 05:39 10/18/17 06:00 Intake & Output 10/17/17 10/18/17 10/19/17 06:59 06:59 06:59 Intake Total 3325 4416 Output Total 4620 2320 Balance -1295 2096 Weight 60.9 kg 60.9 kg General appearance: PRESENT: cooperative, obese Head exam: PRESENT: atraumatic, normocephalic Eye exam: PRESENT: conjunctiva pink, EOMI, PERRLA Ear exam: PRESENT: normal external ear exam, TM's normal bilaterally Mouth exam: PRESENT: moist Respiratory exam: PRESENT: clear to auscultation tameka, unlabored. ABSENT: tachypnea Cardiovascular exam: PRESENT: RRR. ABSENT: diastolic murmur, systolic murmur Vascular exam: PRESENT: normal capillary refill GI/Abdominal exam: PRESENT: normal bowel sounds, soft. ABSENT: tenderness Extremities exam: PRESENT: +1 edema. ABSENT: full ROM Musculoskeletal exam: ABSENT: ambulatory Neurological exam: PRESENT: alert, awake, oriented to person Skin exam: PRESENT: intact, normal color Results Laboratory Results: 10/17/17 10/17/17 10/17/17 06:43 06:43 06:43 WBC 8.9 RBC 3.77 Hgb 11.3 L Hct 33.6 L MCV 89 MCH 30.1 MCHC 33.7 RDW 15.4 H Plt Count 141 L Seg Neutrophils % 88.9 H Lymphocytes % 5.3 L Monocytes % 5.6 Eosinophils % 0.0 Basophils % 0.2 Absolute Neutrophils 7.9 Absolute Lymphocytes 0.5 Absolute Monocytes 0.5 Absolute Eosinophils 0.0 Absolute Basophils 0.0 Carbonic Acid 1.66 H HCO3/H2CO3 Ratio 24:1 ABG pH 7.48 H ABG pCO2 55.2 H ABG pO2 61.1 L ABG HCO3 40.2 H ABG O2 Saturation 92.5 L ABG Base Excess 14.4 FiO2 30% Sodium 133.5 L Potassium 3.2 L Chloride 91 L Carbon Dioxide 41 H* Anion Gap 2 L BUN 13 Creatinine 0.55 Est GFR ( Amer) > 60 Est GFR (Non-Af Amer) > 60 Glucose 141 H Calcium 8.9 Magnesium 1.6 Triglycerides 101 10/17/17 10/18/17 12:05 06:40 WBC RBC Hgb Hct MCV MCH MCHC RDW Plt Count Seg Neutrophils % Lymphocytes % Monocytes % Eosinophils % Basophils % Absolute Neutrophils Absolute Lymphocytes Absolute Monocytes Absolute Eosinophils Absolute Basophils Carbonic Acid 1.42 H 1.70 H HCO3/H2CO3 Ratio 27:1 22:1 ABG pH 7.53 H 7.44 ABG pCO2 47.1 H 56.5 H ABG pO2 57.4 L 252.4 H ABG HCO3 38.6 H 37.4 H ABG O2 Saturation 92.3 L 99.6 H ABG Base Excess 14.2 11.3 FiO2 30% 60% Sodium Potassium Chloride Carbon Dioxide Anion Gap BUN Creatinine Est GFR ( Amer) Est GFR (Non-Af Amer) Glucose Calcium Magnesium Triglycerides 10/15/17 10/15/17 10/16/17 15:33 21:25 03:42 Troponin I 0.099 0.202 0.150 NT-Pro-B Natriuret Pep 10/17/17 10/17/17 10:00 14:50 Troponin I 0.131 NT-Pro-B Natriuret Pep 635 H Impressions: Chest/Abdomen CTA 10/15/17 00:00 IMPRESSION: 1. NORMAL CTA OF THE CHEST. NO PULMONARY EMBOLI. 2. CAVITARY MASS IN THE ANTERIOR RIGHT LOWER LOBE WITH IRREGULAR THICKENED WALL. THIS PROBABLY REPRESENTS NECROTIC TUMOR ALTHOUGH CAVITARY PNEUMONIA COULD BE POSSIBLE. 3. IRREGULAR SOFT TISSUE MASS IN THE APEX OF THE LEFT CHEST. THIS COULD REPRESENT APICAL SCARRING ALTHOUGH MALIGNANT PROCESS SUSPECTED. 4. CHRONIC EMPHYSEMATOUS CHANGES WITH SCARRING. BILATERAL PLEURAL EFFUSIONS. Chest X-Ray 10/17/17 00:00 IMPRESSION: No acute findings. Stable right lung mass. Support devices in expected locations. Assessment & Plan - Diagnosis (1) Acute and chronic respiratory failure ([id number]) Qualifiers: Respiratory failure complication: hypoxia and hypercapnia Qualified Code(s) : J96.21 - Acute and chronic respiratory failure with hypoxia; J96.22 - Acute and chronic respiratory failure with hypercapnia; J96.22 - Acute and chronic respiratory failure with hypercapnia; J96.22 - Acute and chronic respiratory failure with hypercapnia Is this a current diagnosis for this admission?: Yes Plan: Likely to be extubated today (2) Septic shock Is this a current diagnosis for this admission?: Yes Plan: Resolved (3) Lung cancer Qualifiers: Lung location: overlapping sites Is this a current diagnosis for this admission?: Yes Plan: CTA of the lung was ordered and there is extensive involvement in the right and left lung. (4) Pneumonia Qualifiers: Pneumonia type: due to unspecified organism Laterality: unspecified laterality Lung location: unspecified part of lung Qualified Code(s): J18.9 - Pneumonia, unspecified organism Is this a current diagnosis for this admission?: Yes Plan: Continue meropenem and place on Zyvox (5) Tobacco abuse Is this a current diagnosis for this admission?: Yes Plan: Will provide counseling once off ventilator (6) COPD (chronic obstructive pulmonary disease) Qualifiers: COPD type: emphysema Emphysema type: unspecified Qualified Code(s): J43.9 - Emphysema, unspecified Is this a current diagnosis for this admission?: Yes Plan: Continue DuoNeb's and IV steroids. Echocardiogram noted (7) HTN (hypertension) Qualifiers: Hypertension type: essential hypertension Qualified Code(s): I10 - Essential (primary) hypertension Is this a current diagnosis for this admission?: Yes Plan: Continue current management (8) Anasarca Is this a current diagnosis for this admission?: Yes Plan: Improving. Due to diastolic dysfunction and pulmonary hypertension. Continue diuresis (9) Hypokalemia Is this a current diagnosis for this admission?: Yes Plan: Replaced - Time Time Spent with patient: 15-24 minutes Medications reviewed and adjusted accordingly: Yes Anticipated discharge: Home with Homehealth Within: within 72 hours - Inpatient Certification Based on my medical assessment, after consideration of the patient's comorbidities, presenting symptoms, or acuity I expect that the services needed warrant INPATIENT care.: Yes I certify that my determination is in accordance with my understanding of Medicare's requirements for reasonable and necessary INPATIENT services [42 CFR 412.3e].: Yes Medical Necessity: Need Close Monitoring Due to Risk of Patient Decompensation, Need for IV Antibiotics
[2017-10-18] MEDS ORDERED: LINEZOLID 600 MG RTU 300 ML IV ONE (13:00)
[2017-10-18] MEDS: LINEZOLID 300 ML IV SCH (21:57)
[2017-10-18] MEDS: SIMVASTATIN 40 MG TABLET PO SCH (21:59)
[2017-10-19] MEDS: MEROPENEM 1 GM in NORMAL SALINE 100 ML IV SCH (03:11)
[2017-10-19] MEDS: HEPARIN SOD (PORCINE) 5,000 UNIT/ML 1 ML SYRINGE SUBCUT SCH ×3 (03:12→17:49)
[2017-10-19 05:26] LABS: HEMATOCRIT 37.2 % (36.0-47.0); MEAN CORPUSCULAR HEMOGLOBIN 29.4 pg (27.0-33.4); MEAN CORPUSCULAR HGB CONC 32.2 g/dL (32.0-36.0); MEAN CORPUSCULAR VOLUME 91 fl (80-97); PLATELET COUNT 132 10^3/uL (150-450); RED BLOOD COUNT 4.09 10^6/uL (3.72-5.28); RED CELL DISTRIBUTION WIDTH 15.5 % (11.5-14.0); WHITE BLOOD COUNT 13.5 10^3/uL (4.0-10.5)
[2017-10-19 05:49] LABS: BLOOD UREA NITROGEN 15 mg/dL (7-20); CALCIUM 9.1 mg/dL (8.4-10.2); CHLORIDE 93 mmol/L (98-107); GLUCOSE 112 mg/dL (75-110); POTASSIUM 5.1 mmol/L (3.6-5.0)
[2017-10-19 06:03] LABS: SODIUM 137.4 mmol/L (137-145)
[2017-10-19 06:03] LABS: ARTERIAL BLOOD H2CO3 2.61 mmol/L (1.05-1.35); ARTERIAL BLOOD HCO3 45.9 mmol/L (20-26); ARTERIAL BLOOD PH 7.34 (7.35-7.45); ARTERIAL BLOOD PO2 83.3 mmHg (80-100); ARTERIAL BLOOD TOTAL CO2 48.5 mmol/L (21-25)
[2017-10-19 06:04] LABS: ANION GAP 2 (5-19)
[2017-10-19 06:05] LABS: CARBON DIOXIDE 42 mmol/L (22-30)
[2017-10-19 06:05] LABS: ARTERIAL BLOOD FIO2 4L; ARTERIAL BLOOD PCO2 86.8 mmHg (35-45)
[2017-10-19 06:08] LABS: ABSOLUTE LYMPHOCYTES# (MANUAL) 0.5 10^3/uL (0.5-4.7); ABSOLUTE MONOCYTES # (MANUAL) 0.4 10^3/uL (0.1-1.4); ABSOLUTE NEUTROPHILS# (MANUAL) 12.6 10^3/uL (1.7-8.2); BASOPHILS % (MANUAL) 0 % (0-2); EOSINOPHILS % (MANUAL) 0 % (0-6); LYMPHOCYTES % (MANUAL) 3 % (13-45); MONOCYTES % (MANUAL) 3 % (3-13); SEGMENTED NEUTROPHILS % (MAN) 93 % (42-78); TOTAL CELLS COUNTED 100
[2017-10-19 06:09] LABS: PLATELET COMMENT DECREASED; RBC MORPHOLOGY COMMENT NORMO-CYTIC/CHROMIC
[2017-10-19] MEDS: IPRATROPIUM/ALBUTEROL 0.5-2.5 MG/3 ML AMPUL NEB SCH ×3 (07:46→20:45)
[2017-10-19] MEDS ORDERED: FUROSEMIDE INJ/PF 20 MG/2 ML SDV IV SCH (10:00)
[2017-10-19] MEDS ORDERED: FUROSEMIDE 20 MG TABLET PO SCH (10:00)
[2017-10-19] MEDS: LINEZOLID 300 ML IV SCH (11:53)
[2017-10-19] MEDS: LEVOFLOXACIN 750 MG TABLET PO SCH (11:55)
[2017-10-19] MEDS: ATENOLOL 50 MG TABLET PO SCH (11:55)
[2017-10-19] MEDS: METHYLPREDNISOLONE INJ 40 MG/1 ML SDV IV SCH (11:56)
[2017-10-19] MEDS ORDERED: HYDROMORPHONE HCL INJ/PF 2 MG/ML AMPULE IV PRN (13:39)
--- NOTE | 2017-10-19 13:53 | PDOC PROGRESS REPORT ---
Subjective Progress Note for:: 10/19/17 Subjective:: No complaints. Patient was extubated on 10/18 successfully. Patient admits that after she was discharged from [facility] she started smoking Review of system All organ systems evaluated and negative except as in subjective All significant laboratories and diagnostics have been reviewed Reason For Visit: ACUTE ON CHRONIC RESPIRATORY FAILURE Physical Exam Vital Signs: Temp Pulse Resp BP Pulse Ox 96.8 F L 104 H 17 133/66 H 97 10/19/17 04:50 10/18/17 20:13 10/19/17 06:00 10/19/17 05:40 10/19/17 06:00 Intake & Output 10/17/17 10/18/17 10/19/17 06:59 06:59 06:59 Intake Total 3325 4416 2930 Output Total 4620 2320 3330 Balance -1295 2096 -400 Weight 60.9 kg 60.9 kg 61.9 kg General appearance: PRESENT: cooperative, thin Head exam: PRESENT: atraumatic, normocephalic, other Eye exam: PRESENT: conjunctiva pink, EOMI, PERRLA Ear exam: PRESENT: normal external ear exam Mouth exam: PRESENT: moist Neck exam: PRESENT: full ROM. ABSENT: JVD, lymphadenopathy, tenderness Respiratory exam: PRESENT: clear to auscultation tameka Cardiovascular exam: PRESENT: RRR. ABSENT: diastolic murmur, systolic murmur Vascular exam: PRESENT: normal capillary refill GI/Abdominal exam: PRESENT: normal bowel sounds, soft. ABSENT: tenderness Extremities exam: PRESENT: full ROM, +1 edema Musculoskeletal exam: PRESENT: ambulatory Neurological exam: PRESENT: alert, awake, oriented to person, oriented to place , oriented to time, oriented to situation, CN II-XII grossly intact Psychiatric exam: PRESENT: appropriate affect, normal mood Skin exam: PRESENT: intact, normal color Results Laboratory Results: 10/19/17 05:10 10/19/17 05:10 10/18/17 10/18/17 10/18/17 06:30 06:30 06:40 WBC 11.9 H RBC 3.71 L Hgb 11.0 L Hct 33.1 L MCV 89 MCH 29.6 MCHC 33.2 RDW 15.3 H Plt Count 126 L Seg Neutrophils % Not Reportable Lymphocytes % Not Reportable Monocytes % Not Reportable Eosinophils % Not Reportable Basophils % Not Reportable Absolute Neutrophils Not Reportable Absolute Lymphocytes Not Reportable Absolute Monocytes Not Reportable Absolute Eosinophils Not Reportable Absolute Basophils Not Reportable Carbonic Acid 1.70 H HCO3/H2CO3 Ratio 22:1 ABG pH 7.44 ABG pCO2 56.5 H ABG pO2 252.4 H ABG HCO3 37.4 H ABG O2 Saturation 99.6 H ABG Base Excess 11.3 FiO2 60% Sodium 135.4 L Potassium 4.2 D Chloride 93 L Carbon Dioxide 40 H* Anion Gap 2 L BUN 17 Creatinine 0.63 Est GFR ( Amer) > 60 Est GFR (Non-Af Amer) > 60 Glucose 163 H Calcium 8.6 Magnesium 1.7 Total Bilirubin 0.1 L AST 56 H ALT 37 Alkaline Phosphatase 61 Total Protein 4.2 L Albumin 2.5 L 10/19/17 10/19/17 10/19/17 05:10 05:10 05:10 WBC 13.5 H RBC 4.09 Hgb 12.0 Hct 37.2 MCV 91 MCH 29.4 MCHC 32.2 RDW 15.5 H Plt Count 132 L Seg Neutrophils % Not Reportable Lymphocytes % Not Reportable Monocytes % Not Reportable Eosinophils % Not Reportable Basophils % Not Reportable Absolute Neutrophils Not Reportable Absolute Lymphocytes Not Reportable Absolute Monocytes Not Reportable Absolute Eosinophils Not Reportable Absolute Basophils Not Reportable Carbonic Acid Cancelled HCO3/H2CO3 Ratio Cancelled ABG pH Cancelled ABG pCO2 Cancelled ABG pO2 Cancelled ABG HCO3 Cancelled ABG O2 Saturation Cancelled ABG Base Excess Cancelled FiO2 Cancelled Sodium 137.4 Potassium 5.1 H Chloride 93 L Carbon Dioxide 42 H* Anion Gap 2 L BUN 15 Creatinine 0.56 Est GFR ( Amer) > 60 Est GFR (Non-Af Amer) > 60 Glucose 112 H Calcium 9.1 Magnesium 1.9 Total Bilirubin AST ALT Alkaline Phosphatase Total Protein Albumin 10/19/17 05:55 WBC RBC Hgb Hct MCV MCH MCHC RDW Plt Count Seg Neutrophils % Lymphocytes % Monocytes % Eosinophils % Basophils % Absolute Neutrophils Absolute Lymphocytes Absolute Monocytes Absolute Eosinophils Absolute Basophils Carbonic Acid 2.61 H HCO3/H2CO3 Ratio 17:1 ABG pH 7.34 L ABG pCO2 86.8 H* ABG pO2 83.3 ABG HCO3 45.9 H ABG O2 Saturation 95.0 ABG Base Excess 16.0 FiO2 4L Sodium Potassium Chloride Carbon Dioxide Anion Gap BUN Creatinine Est GFR ( Amer) Est GFR (Non-Af Amer) Glucose Calcium Magnesium Total Bilirubin AST ALT Alkaline Phosphatase Total Protein Albumin 10/17/17 09:15 Tracheal Aspirate Gram Stain - Final 10/17/17 09:15 Tracheal Aspirate Sputum Culture - Final C.albicans/C.dubliniensis Normal Celeste Absent 10/15/17 10/15/17 10/16/17 15:33 21:25 03:42 Troponin I 0.099 0.202 0.150 NT-Pro-B Natriuret Pep 10/17/17 10/17/17 10:00 14:50 Troponin I 0.131 NT-Pro-B Natriuret Pep 635 H Impressions: Chest/Abdomen CTA 10/15/17 00:00 IMPRESSION: 1. NORMAL CTA OF THE CHEST. NO PULMONARY EMBOLI. 2. CAVITARY MASS IN THE ANTERIOR RIGHT LOWER LOBE WITH IRREGULAR THICKENED WALL. THIS PROBABLY REPRESENTS NECROTIC TUMOR ALTHOUGH CAVITARY PNEUMONIA COULD BE POSSIBLE. 3. IRREGULAR SOFT TISSUE MASS IN THE APEX OF THE LEFT CHEST. THIS COULD REPRESENT APICAL SCARRING ALTHOUGH MALIGNANT PROCESS SUSPECTED. 4. CHRONIC EMPHYSEMATOUS CHANGES WITH SCARRING. BILATERAL PLEURAL EFFUSIONS. Chest X-Ray 10/17/17 00:00 IMPRESSION: No acute findings. Stable right lung mass. Support devices in expected locations. Assessment & Plan - Diagnosis (1) Acute and chronic respiratory failure ([id number]) Qualifiers: Respiratory failure complication: hypoxia and hypercapnia Qualified Code(s) : J96.21 - Acute and chronic respiratory failure with hypoxia; J96.22 - Acute and chronic respiratory failure with hypercapnia; J96.22 - Acute and chronic respiratory failure with hypercapnia; J96.22 - Acute and chronic respiratory failure with hypercapnia Is this a current diagnosis for this admission?: Yes Plan: Successfully extubated and will use BiPAP as needed. Continue with oxygen supplementation (2) Septic shock Is this a current diagnosis for this admission?: Yes Plan: Resolved (3) Lung cancer Qualifiers: Lung location: overlapping sites Is this a current diagnosis for this admission?: Yes Plan: CTA of the lung was ordered and there is extensive involvement in the right and left lung. Patient aware. (4) Pneumonia Qualifiers: Pneumonia type: due to unspecified organism Laterality: unspecified laterality Lung location: unspecified part of lung Qualified Code(s): J18.9 - Pneumonia, unspecified organism Is this a current diagnosis for this admission?: Yes Plan: To change to levaquin and zyvox orally (5) Tobacco abuse Is this a current diagnosis for this admission?: Yes Plan: Patient educated about quitting (6) COPD (chronic obstructive pulmonary disease) Qualifiers: COPD type: emphysema Emphysema type: unspecified Qualified Code(s): J43.9 - Emphysema, unspecified Is this a current diagnosis for this admission?: Yes Plan: Decrease IV steroids and continue nebulizer treatment (7) HTN (hypertension) Qualifiers: Hypertension type: essential hypertension Qualified Code(s): I10 - Essential (primary) hypertension Is this a current diagnosis for this admission?: Yes Plan: His echocardiogram demonstrating combined systolic and diastolic dysfunction will discontinue atenolol and instead place her on Toprol-XL, lisinopril and Lasix (8) Anasarca Is this a current diagnosis for this admission?: Yes Plan: Resolving. Continue to congestive heart failure and pulmonary hypertension (9) Hypokalemia Is this a current diagnosis for this admission?: Yes (10) CHF (congestive heart failure) Qualifiers: Heart failure type: combined systolic and diastolic Heart failure chronicity: acute on chronic Qualified Code(s): I50.43 - Acute on chronic combined systolic (congestive) and diastolic (congestive) heart failure Is this a current diagnosis for this admission?: Yes (11) Pulmonary hypertension Is this a current diagnosis for this admission?: Yes Plan: Optimize cardiac function and place on lasix - Time Time Spent with patient: 15-24 minutes Medications reviewed and adjusted accordingly: Yes Anticipated discharge: Home with Homehealth Within: within 48 hours - Inpatient Certification Based on my medical assessment, after consideration of the patient's comorbidities, presenting symptoms, or acuity I expect that the services needed warrant INPATIENT care.: Yes I certify that my determination is in accordance with my understanding of Medicare's requirements for reasonable and necessary INPATIENT services [42 CFR 412.3e].: Yes Medical Necessity: Need Close Monitoring Due to Risk of Patient Decompensation, Need For Continuous Telemetry Monitoring
[2017-10-19 16:49] LABS: ARTERIAL BLOOD H2CO3 3.62 mmol/L (1.05-1.35); ARTERIAL BLOOD HCO3 48.5 mmol/L (20-26); ARTERIAL BLOOD O2 SATURATION 95.4 % (94-98); ARTERIAL BLOOD PH 7.22 (7.35-7.45); ARTERIAL BLOOD TOTAL CO2 52.2 mmol/L (21-25)
[2017-10-19 16:51] LABS: ARTERIAL BLOOD FIO2 50%
[2017-10-19 16:55] LABS: ARTERIAL BLOOD PCO2 120.3 mmHg (35-45)
[2017-10-19] MEDS: FUROSEMIDE INJ/PF 20 MG/2 ML SDV IV SCH (17:47)
[2017-10-19 18:54] LABS: ARTERIAL BLOOD H2CO3 2.67 mmol/L (1.05-1.35); ARTERIAL BLOOD HCO3 48.4 mmol/L (20-26); ARTERIAL BLOOD O2 SATURATION 94.2 % (94-98); ARTERIAL BLOOD PH 7.36 (7.35-7.45); ARTERIAL BLOOD PO2 78.1 mmHg (80-100); ARTERIAL BLOOD TOTAL CO2 51.1 mmol/L (21-25)
[2017-10-19 18:56] LABS: ARTERIAL BLOOD FIO2 40%
[2017-10-19 19:01] LABS: ARTERIAL BLOOD PCO2 88.7 mmHg (35-45)
[2017-10-19] MEDS: SIMVASTATIN 40 MG TABLET PO SCH (21:07)
[2017-10-19] MEDS: LINEZOLID 600 MG TABLET PO SCH (21:08)
[2017-10-20] MEDS: ALPRAZOLAM 0.25 MG TABLET PO PRN ×2 (00:05→21:43)
[2017-10-20] MEDS: METHYLPREDNISOLONE INJ 40 MG/1 ML SDV IV SCH ×2 (00:05→10:39)
[2017-10-20] MEDS: HEPARIN SOD (PORCINE) 5,000 UNIT/ML 1 ML SYRINGE SUBCUT SCH ×3 (02:40→17:43)
[2017-10-20] MEDS: FUROSEMIDE INJ/PF 20 MG/2 ML SDV IV SCH (05:51)
[2017-10-20 06:55] LABS: ARTERIAL BLOOD BASE EXCESS 23.5 mmol/L; ARTERIAL BLOOD H2CO3 2.63 mmol/L (1.05-1.35); ARTERIAL BLOOD HCO3 53.7 mmol/L (20-26); ARTERIAL BLOOD O2 SATURATION 96.9 % (94-98); ARTERIAL BLOOD PH 7.41 (7.35-7.45); ARTERIAL BLOOD PO2 95.6 mmHg (80-100); ARTERIAL BLOOD TOTAL CO2 56.3 mmol/L (21-25)
[2017-10-20 06:58] LABS: ARTERIAL BLOOD FIO2 6L
[2017-10-20 07:01] LABS: ARTERIAL BLOOD PCO2 87.4 mmHg (35-45)
[2017-10-20] MEDS: IPRATROPIUM/ALBUTEROL 0.5-2.5 MG/3 ML AMPUL NEB SCH (08:21)
[2017-10-20] MEDS: METOPROLOL SUCCINATE 25 MG TAB.SR.24H PO SCH (10:38)
[2017-10-20] MEDS: FUROSEMIDE 20 MG TABLET PO SCH (10:39)
[2017-10-20] MEDS: LISINOPRIL 5 MG TABLET PO SCH (10:40)
[2017-10-20] MEDS: LEVOFLOXACIN 750 MG TABLET PO SCH (10:40)
[2017-10-20] MEDS: LINEZOLID 600 MG TABLET PO SCH ×2 (10:42→21:44)
--- NOTE | 2017-10-20 12:16 | PDOC PROGRESS REPORT ---
Subjective Progress Note for:: 10/20/17 Subjective:: No complaints voiced today. Patient would like to talk with her oncologist because accordingly she has been told that there is some new treatments for her lung cancer. Patient acknowledges that she does have a history of a heart attack. Nurse reported that she has been trying to talk to patient's niece about DNR status and the possibility of patient going home with hospice Patient was extubated on 10/18 successfully. Review of system All organ systems evaluated and negative except as in subjective All significant laboratories and diagnostics have been reviewed Reason For Visit: ACUTE ON CHRONIC RESPIRATORY FAILURE Physical Exam Vital Signs: Temp Pulse Resp BP Pulse Ox 98.1 F 85 18 118/54 L 98 10/20/17 04:58 10/19/17 20:45 10/20/17 06:00 10/20/17 05:30 10/20/17 06:00 Intake & Output 10/18/17 10/19/17 10/20/17 06:59 06:59 06:59 Intake Total 4416 2930 1646 Output Total 2320 3330 4945 Balance 2096 -400 -3299 Weight 60.9 kg 61.9 kg 58.7 kg General appearance: PRESENT: cooperative, well-developed, well-nourished Head exam: PRESENT: atraumatic, normocephalic Eye exam: PRESENT: conjunctiva pink, EOMI, PERRLA Ear exam: PRESENT: normal external ear exam, TM's normal bilaterally Mouth exam: PRESENT: moist Neck exam: PRESENT: full ROM. ABSENT: JVD, lymphadenopathy, tenderness Respiratory exam: PRESENT: clear to auscultation tameka, decreased breath sounds Cardiovascular exam: PRESENT: RRR, systolic murmur. ABSENT: diastolic murmur Vascular exam: PRESENT: normal capillary refill GI/Abdominal exam: PRESENT: normal bowel sounds, soft. ABSENT: tenderness Extremities exam: PRESENT: full ROM, +1 edema Musculoskeletal exam: ABSENT: ambulatory Neurological exam: PRESENT: alert, awake, oriented to person, oriented to place , oriented to time, oriented to situation, CN II-XII grossly intact Psychiatric exam: PRESENT: appropriate affect, normal mood Skin exam: PRESENT: intact, normal color Results Laboratory Results: 10/19/17 05:10 10/19/17 05:10 10/19/17 10/19/17 16:30 18:20 Carbonic Acid 3.62 H 2.67 H HCO3/H2CO3 Ratio 13:1 18:1 ABG pH 7.22 L 7.36 ABG pCO2 120.3 H* 88.7 H* ABG pO2 98.0 78.1 L ABG HCO3 48.5 H 48.4 H ABG O2 Saturation 95.4 94.2 ABG Base Excess 15.0 18.0 FiO2 50% 40% 10/15/17 10/15/17 10/16/17 15:33 21:25 03:42 Troponin I 0.099 0.202 0.150 NT-Pro-B Natriuret Pep 10/17/17 10/17/17 10:00 14:50 Troponin I 0.131 NT-Pro-B Natriuret Pep 635 H Impressions: Chest/Abdomen CTA 10/15/17 00:00 IMPRESSION: 1. NORMAL CTA OF THE CHEST. NO PULMONARY EMBOLI. 2. CAVITARY MASS IN THE ANTERIOR RIGHT LOWER LOBE WITH IRREGULAR THICKENED WALL. THIS PROBABLY REPRESENTS NECROTIC TUMOR ALTHOUGH CAVITARY PNEUMONIA COULD BE POSSIBLE. 3. IRREGULAR SOFT TISSUE MASS IN THE APEX OF THE LEFT CHEST. THIS COULD REPRESENT APICAL SCARRING ALTHOUGH MALIGNANT PROCESS SUSPECTED. 4. CHRONIC EMPHYSEMATOUS CHANGES WITH SCARRING. BILATERAL PLEURAL EFFUSIONS. Chest X-Ray 10/17/17 00:00 IMPRESSION: No acute findings. Stable right lung mass. Support devices in expected locations. Assessment & Plan - Diagnosis (1) Acute and chronic respiratory failure ([id number]) Qualifiers: Respiratory failure complication: hypoxia and hypercapnia Qualified Code(s) : J96.21 - Acute and chronic respiratory failure with hypoxia; J96.22 - Acute and chronic respiratory failure with hypercapnia; J96.22 - Acute and chronic respiratory failure with hypercapnia; J96.22 - Acute and chronic respiratory failure with hypercapnia Is this a current diagnosis for this admission?: Yes Plan: Successfully extubated on 10/18 and will use BiPAP as needed. Continue with oxygen supplementation (2) Septic shock Is this a current diagnosis for this admission?: Yes Plan: Resolved (3) Lung cancer Qualifiers: Lung location: overlapping sites Is this a current diagnosis for this admission?: Yes Plan: CTA of the lung was ordered and there is extensive involvement in the right and left lung. Patient aware. She wants for Dr. Boston to talk to her oncologist. She has an appointment on November 10 with her oncologist (4) Pneumonia Qualifiers: Pneumonia type: due to unspecified organism Laterality: unspecified laterality Lung location: unspecified part of lung Qualified Code(s): J18.9 - Pneumonia, unspecified organism Is this a current diagnosis for this admission?: Yes Plan: Continue levaquin and zyvox (5) Tobacco abuse Is this a current diagnosis for this admission?: Yes Plan: Patient educated about quitting (6) COPD (chronic obstructive pulmonary disease) Qualifiers: COPD type: emphysema Emphysema type: unspecified Qualified Code(s): J43.9 - Emphysema, unspecified Is this a current diagnosis for this admission?: Yes Plan: Will place on Advair, Spiriva, Singulair. Discontinue IV steroids and change to oral (7) HTN (hypertension) Qualifiers: Hypertension type: essential hypertension Qualified Code(s): I10 - Essential (primary) hypertension Is this a current diagnosis for this admission?: Yes Plan: Her echocardiogram demonstrated combined systolic and diastolic dysfunction. Continue Toprol-XL, lisinopril and Lasix IV (8) Anasarca Is this a current diagnosis for this admission?: Yes Plan: Resolving. (9) Hypokalemia Is this a current diagnosis for this admission?: Yes Plan: Trend since on IV diuretic (10) CHF (congestive heart failure) Qualifiers: Heart failure type: combined systolic and diastolic Heart failure chronicity: acute on chronic Qualified Code(s): I50.43 - Acute on chronic combined systolic (congestive) and diastolic (congestive) heart failure Is this a current diagnosis for this admission?: Yes Plan: Continue lasix IV, lisinopril and Toprol Xl (11) Pulmonary hypertension Is this a current diagnosis for this admission?: Yes Plan: Optimize cardiac function and continue lasix - Time Time Spent with patient: 15-24 minutes Medications reviewed and adjusted accordingly: Yes Anticipated discharge: Home with Homehealth Within: within 48 hours - Inpatient Certification Based on my medical assessment, after consideration of the patient's comorbidities, presenting symptoms, or acuity I expect that the services needed warrant INPATIENT care.: Yes I certify that my determination is in accordance with my understanding of Medicare's requirements for reasonable and necessary INPATIENT services [42 CFR 412.3e].: Yes Medical Necessity: Need Close Monitoring Due to Risk of Patient Decompensation, Need For Continuous Telemetry Monitoring
[2017-10-20] MEDS ORDERED: ONDANSETRON HCL INJ/PF 4 MG/2 ML SDV IV PRN (12:30)
[2017-10-20] MEDS ORDERED: MONTELUKAST SODIUM 10 MG TABLET PO ONE (13:00)
[2017-10-20] MEDS: SIMVASTATIN 40 MG TABLET PO SCH (21:43)
[2017-10-20] MEDS: MONTELUKAST SODIUM 10 MG TABLET PO SCH (21:43)
[2017-10-20] MEDS: FLUTICASONE/SALMETEROL DISKUS 500-50 MCG/DOSE IH SCH (21:44)
[2017-10-21] MEDS: HEPARIN SOD (PORCINE) 5,000 UNIT/ML 1 ML SYRINGE SUBCUT SCH ×3 (02:00→18:34)
[2017-10-21 05:35] LABS: BLOOD UREA NITROGEN 26 mg/dL (7-20); GLUCOSE 73 mg/dL (75-110)
[2017-10-21 05:51] LABS: CHLORIDE 84 mmol/L (98-107); SODIUM 134.4 mmol/L (137-145)
[2017-10-21 05:56] LABS: ANION GAP 2 (5-19)
[2017-10-21 05:57] LABS: CARBON DIOXIDE 48 mmol/L (22-30)
[2017-10-21] MEDS: IPRATROPIUM/ALBUTEROL 0.5-2.5 MG/3 ML AMPUL NEB PRN (08:23)
[2017-10-21] MEDS: LISINOPRIL 5 MG TABLET PO SCH (09:32)
[2017-10-21] MEDS: METOPROLOL SUCCINATE 25 MG TAB.SR.24H PO SCH (09:32)
[2017-10-21] MEDS: FLUTICASONE/SALMETEROL DISKUS 500-50 MCG/DOSE IH SCH ×2 (09:48→22:07)
[2017-10-21] MEDS: ROFLUMILAST 500 MCG TABLET PO SCH (09:48)
[2017-10-21] MEDS: LINEZOLID 600 MG TABLET PO SCH ×2 (09:48→22:08)
[2017-10-21] MEDS: FUROSEMIDE 20 MG TABLET PO SCH (09:48)
[2017-10-21] MEDS: TIOTROPIUM BROMIDE DPI 5 CAP/KIT (18 MCG/CAP) IH SCH (09:48)
[2017-10-21] MEDS ORDERED: PREDNISONE 20 MG TABLET PO SCH (10:00)
--- NOTE | 2017-10-21 12:12 | PDOC PROGRESS REPORT ---
Subjective Progress Note for:: 10/21/17 Subjective:: Patient relates that her breathing still okay. At the time of evaluation she was using BiPAP Patient was extubated on 10/18 successfully. Review of system All organ systems evaluated and negative except as in subjective All significant laboratories and diagnostics have been reviewed Reason For Visit: ACUTE ON CHRONIC RESPIRATORY FAILURE Physical Exam Vital Signs: Temp Pulse Resp BP Pulse Ox 97.8 F 81 14 104/56 L 100 10/21/17 04:00 10/21/17 04:00 10/21/17 04:00 10/21/17 04:00 10/21/17 04:00 Intake & Output 10/20/17 10/21/17 10/22/17 06:59 06:59 06:59 Intake Total 1646 1530 Output Total 4945 3700 Balance -3299 -2170 Weight 58.7 kg 55.8 kg General appearance: PRESENT: cooperative, thin Head exam: PRESENT: atraumatic, normocephalic Eye exam: PRESENT: conjunctiva pink, EOMI, PERRLA Ear exam: PRESENT: normal external ear exam Mouth exam: PRESENT: moist Neck exam: PRESENT: full ROM. ABSENT: JVD, lymphadenopathy, tenderness Respiratory exam: PRESENT: clear to auscultation tameka, decreased breath sounds Cardiovascular exam: PRESENT: RRR. ABSENT: diastolic murmur, systolic murmur Vascular exam: PRESENT: normal capillary refill GI/Abdominal exam: PRESENT: normal bowel sounds, soft. ABSENT: tenderness Extremities exam: PRESENT: full ROM. ABSENT: tenderness Musculoskeletal exam: PRESENT: ambulatory Neurological exam: PRESENT: alert, awake, oriented to person, oriented to place , oriented to time, oriented to situation Psychiatric exam: PRESENT: appropriate affect, normal mood Skin exam: PRESENT: intact, normal color Results Laboratory Results: 10/19/17 05:10 10/21/17 04:45 10/21/17 04:45 Sodium 134.4 L Potassium 4.0 Chloride 84 L Carbon Dioxide 48 H* Anion Gap 2 L BUN 26 H Creatinine 0.59 Est GFR ( Amer) > 60 Est GFR (Non-Af Amer) > 60 Glucose 73 L Calcium 9.0 Magnesium 2.0 10/15/17 15:33 Blood Blood Culture - Final NO GROWTH IN 5 DAYS 10/15/17 10/15/17 10/16/17 15:33 21:25 03:42 Troponin I 0.099 0.202 0.150 NT-Pro-B Natriuret Pep 10/17/17 10/17/17 10:00 14:50 Troponin I 0.131 NT-Pro-B Natriuret Pep 635 H Impressions: Chest/Abdomen CTA 10/15/17 00:00 IMPRESSION: 1. NORMAL CTA OF THE CHEST. NO PULMONARY EMBOLI. 2. CAVITARY MASS IN THE ANTERIOR RIGHT LOWER LOBE WITH IRREGULAR THICKENED WALL. THIS PROBABLY REPRESENTS NECROTIC TUMOR ALTHOUGH CAVITARY PNEUMONIA COULD BE POSSIBLE. 3. IRREGULAR SOFT TISSUE MASS IN THE APEX OF THE LEFT CHEST. THIS COULD REPRESENT APICAL SCARRING ALTHOUGH MALIGNANT PROCESS SUSPECTED. 4. CHRONIC EMPHYSEMATOUS CHANGES WITH SCARRING. BILATERAL PLEURAL EFFUSIONS. Chest X-Ray 10/17/17 00:00 IMPRESSION: No acute findings. Stable right lung mass. Support devices in expected locations. Assessment & Plan - Diagnosis (1) Acute and chronic respiratory failure ([id number]) Qualifiers: Respiratory failure complication: hypoxia and hypercapnia Qualified Code(s) : J96.21 - Acute and chronic respiratory failure with hypoxia; J96.22 - Acute and chronic respiratory failure with hypercapnia; J96.22 - Acute and chronic respiratory failure with hypercapnia; J96.22 - Acute and chronic respiratory failure with hypercapnia Is this a current diagnosis for this admission?: Yes Plan: Successfully extubated on 10/18 and will use BiPAP as needed. Continue with oxygen supplementation.Had extensive conversation with POA on October 20 since will have to delineate patient CODE STATUS which at the present time is full code. Explained to her patient's current medical condition. Patient more worried about going to her oncologist appointment on November 10 however is unaware of her poor lung condition. And POA encouraged as to enforce her duties since patient is also somewhat confused (2) Septic shock Is this a current diagnosis for this admission?: Yes Plan: Resolved (3) Lung cancer Qualifiers: Lung location: overlapping sites Is this a current diagnosis for this admission?: Yes Plan: CTA of the lung was ordered and there is extensive involvement in the right and left lung. Patient aware. She has an appointment on November 10 with her oncologist. After talking to POA it appears that lung cancer has not progressed over the span of 2 years (4) Pneumonia Qualifiers: Pneumonia type: due to unspecified organism Laterality: unspecified laterality Lung location: unspecified part of lung Qualified Code(s): J18.9 - Pneumonia, unspecified organism Is this a current diagnosis for this admission?: Yes Plan: Continue levaquin and zyvox for 4 days (5) Tobacco abuse Is this a current diagnosis for this admission?: Yes Plan: Patient educated about quitting And due to mental side effects of nicotine to her lung (6) COPD (chronic obstructive pulmonary disease) Qualifiers: COPD type: emphysema Emphysema type: unspecified Qualified Code(s): J43.9 - Emphysema, unspecified Is this a current diagnosis for this admission?: Yes Plan: Will place on Advair, Spiriva, Singulair. Discontinue IV steroids and change to oral (7) HTN (hypertension) Qualifiers: Hypertension type: essential hypertension Qualified Code(s): I10 - Essential (primary) hypertension Is this a current diagnosis for this admission?: Yes Plan: Her echocardiogram demonstrated combined systolic and diastolic dysfunction. Continue Toprol-XL, lisinopril and discotninue lasix since renal slightly up (8) Anasarca Is this a current diagnosis for this admission?: Yes Plan: Resolved (9) Hypokalemia Is this a current diagnosis for this admission?: Yes Plan: Resolved (10) CHF (congestive heart failure) Qualifiers: Heart failure type: combined systolic and diastolic Heart failure chronicity: acute on chronic Qualified Code(s): I50.43 - Acute on chronic combined systolic (congestive) and diastolic (congestive) heart failure Is this a current diagnosis for this admission?: Yes Plan: Continue lisinopril, Toprol Xl and discontinue lasix oral. (11) Pulmonary hypertension Is this a current diagnosis for this admission?: Yes Plan: Clinically improving - Time Time Spent with patient: 15-24 minutes Medications reviewed and adjusted accordingly: Yes Anticipated discharge: Home with Homehealth Within: within 48 hours - Inpatient Certification Based on my medical assessment, after consideration of the patient's comorbidities, presenting symptoms, or acuity I expect that the services needed warrant INPATIENT care.: Yes I certify that my determination is in accordance with my understanding of Medicare's requirements for reasonable and necessary INPATIENT services [42 CFR 412.3e].: Yes Medical Necessity: Need Close Monitoring Due to Risk of Patient Decompensation, Need for Nebulizer Therapy and Monitoring of Response
[2017-10-21] MEDS: PREDNISONE 20 MG TABLET PO SCH (15:51)
[2017-10-21] MEDS: LEVOFLOXACIN 750 MG TABLET PO SCH (15:51)
[2017-10-21] MEDS: ALPRAZOLAM 0.25 MG TABLET PO PRN (22:06)
[2017-10-21] MEDS: SIMVASTATIN 40 MG TABLET PO SCH (22:06)
[2017-10-21] MEDS: MONTELUKAST SODIUM 10 MG TABLET PO SCH (22:07)
[2017-10-22] MEDS: HEPARIN SOD (PORCINE) 5,000 UNIT/ML 1 ML SYRINGE SUBCUT SCH ×3 (02:45→17:10)
[2017-10-22 07:41] LABS: ABSOLUTE LYMPHOCYTES (AUTO) 0.9 10^3/uL (0.5-4.7); ABSOLUTE MONOCYTES (AUTO) 0.8 10^3/uL (0.1-1.4); ABSOLUTE NEUT (AUTO) 6.4 10^3/uL (1.7-8.2); EOSINOPHILS % (AUTO) 0.3 % (0-6); HEMOGLOBIN 11.6 g/dL (12.0-15.5); LYMPHOCYTES % (AUTO) 11.4 % (13-45); MEAN CORPUSCULAR HEMOGLOBIN 29.7 pg (27.0-33.4); MEAN CORPUSCULAR HGB CONC 33.1 g/dL (32.0-36.0); MEAN CORPUSCULAR VOLUME 90 fl (80-97); PLATELET COUNT 130 10^3/uL (150-450); RED BLOOD COUNT 3.91 10^6/uL (3.72-5.28); RED CELL DISTRIBUTION WIDTH 15.2 % (11.5-14.0); SEGMENTED NEUTROPHILS % (AUTO) 78.3 % (42-78); TOTAL CELLS COUNTED % (AUTO) 100 %; WHITE BLOOD COUNT 8.1 10^3/uL (4.0-10.5)
[2017-10-22 08:03] LABS: ALANINE AMINOTRANSFERASE 49 U/L (9-52); ALBUMIN 2.9 g/dL (3.5-5.0); ALKALINE PHOSPHATASE 71 U/L (38-126); ASPARTATE AMINO TRANSFERASE 38 U/L (14-36); BILIRUBIN,DIRECT 0.4 mg/dL (0.0-0.4); BILIRUBIN,TOTAL 0.8 mg/dL (0.2-1.3); BLOOD UREA NITROGEN 17 mg/dL (7-20); CALCIUM 8.8 mg/dL (8.4-10.2); CHLORIDE 89 mmol/L (98-107); GLUCOSE 91 mg/dL (75-110); TOTAL PROTEIN 4.7 g/dL (6.3-8.2)
[2017-10-22 08:16] LABS: POTASSIUM 3.4 mmol/L (3.6-5.0); SODIUM 132.4 mmol/L (137-145)
[2017-10-22 08:28] LABS: ANION GAP 2 (5-19)
[2017-10-22 08:32] LABS: CARBON DIOXIDE 41 mmol/L (22-30)
[2017-10-22] MEDS: TIOTROPIUM BROMIDE DPI 5 CAP/KIT (18 MCG/CAP) IH SCH (10:08)
[2017-10-22] MEDS: LISINOPRIL 5 MG TABLET PO SCH (10:08)
[2017-10-22] MEDS: LINEZOLID 600 MG TABLET PO SCH ×2 (10:09→21:02)
[2017-10-22] MEDS: FLUTICASONE/SALMETEROL DISKUS 500-50 MCG/DOSE IH SCH ×2 (10:09→21:02)
[2017-10-22] MEDS: METOPROLOL SUCCINATE 25 MG TAB.SR.24H PO SCH (10:09)
[2017-10-22] MEDS: ROFLUMILAST 500 MCG TABLET PO SCH (10:09)
[2017-10-22] MEDS: LEVOFLOXACIN 750 MG TABLET PO SCH (12:11)
--- NOTE | 2017-10-22 12:32 | PDOC PROGRESS REPORT ---
Subjective Progress Note for:: 10/22/17 Subjective:: resting comfortably with no complaints to me this morning. states her breathing is better but the result of her lung cancer and needs to see her oncologist. she denies chest pain, palpations, fevers/chills, n/v/d and claims to have eaten all her bfast this morning. ROS: all systems reviewed, see above, remaining systems negative. Reason For Visit: ACUTE ON CHRONIC RESPIRATORY FAILURE Physical Exam Vital Signs: Temp Pulse Resp BP Pulse Ox 98.0 F 91 15 119/60 96 10/22/17 07:28 10/22/17 07:28 10/22/17 07:28 10/22/17 07:28 10/22/17 09:46 Intake & Output 10/21/17 10/22/17 10/23/17 06:59 06:59 06:59 Intake Total 1530 1480 Output Total 3700 2200 Balance -2170 -720 Weight 55.8 kg 53.7 kg General appearance: PRESENT: no acute distress, thin Head exam: PRESENT: atraumatic, normocephalic Eye exam: PRESENT: EOMI. ABSENT: scleral icterus Mouth exam: PRESENT: moist, neck supple Respiratory exam: PRESENT: crackles - bilat. ABSENT: accessory muscle use, rhonchi, wheezes Cardiovascular exam: PRESENT: RRR. ABSENT: systolic murmur GI/Abdominal exam: PRESENT: normal bowel sounds, soft. ABSENT: tenderness Extremities exam: ABSENT: calf tenderness, pedal edema, tenderness Musculoskeletal exam: PRESENT: full ROM Neurological exam: PRESENT: alert, awake, oriented to person, oriented to place , oriented to situation Psychiatric exam: PRESENT: appropriate affect, normal mood Skin exam: PRESENT: dry, warm Results Laboratory Results: 10/22/17 06:30 10/22/17 06:30 10/22/17 10/22/17 06:30 06:30 WBC 8.1 RBC 3.91 Hgb 11.6 L Hct 35.0 L MCV 90 MCH 29.7 MCHC 33.1 RDW 15.2 H Plt Count 130 L Seg Neutrophils % 78.3 H Lymphocytes % 11.4 L Monocytes % 10.0 Eosinophils % 0.3 Basophils % 0.0 Absolute Neutrophils 6.4 Absolute Lymphocytes 0.9 Absolute Monocytes 0.8 Absolute Eosinophils 0.0 Absolute Basophils 0.0 Sodium 132.4 L Potassium 3.4 L Chloride 89 L Carbon Dioxide 41 H* Anion Gap 2 L BUN 17 Creatinine 0.64 Est GFR ( Amer) > 60 Est GFR (Non-Af Amer) > 60 Glucose 91 Calcium 8.8 Magnesium 1.9 Total Bilirubin 0.8 AST 38 H ALT 49 Alkaline Phosphatase 71 Total Protein 4.7 L Albumin 2.9 L 10/15/17 10/15/17 10/16/17 15:33 21:25 03:42 Troponin I 0.099 0.202 0.150 NT-Pro-B Natriuret Pep 10/17/17 10/17/17 10:00 14:50 Troponin I 0.131 NT-Pro-B Natriuret Pep 635 H Impressions: Chest/Abdomen CTA 10/15/17 00:00 IMPRESSION: 1. NORMAL CTA OF THE CHEST. NO PULMONARY EMBOLI. 2. CAVITARY MASS IN THE ANTERIOR RIGHT LOWER LOBE WITH IRREGULAR THICKENED WALL. THIS PROBABLY REPRESENTS NECROTIC TUMOR ALTHOUGH CAVITARY PNEUMONIA COULD BE POSSIBLE. 3. IRREGULAR SOFT TISSUE MASS IN THE APEX OF THE LEFT CHEST. THIS COULD REPRESENT APICAL SCARRING ALTHOUGH MALIGNANT PROCESS SUSPECTED. 4. CHRONIC EMPHYSEMATOUS CHANGES WITH SCARRING. BILATERAL PLEURAL EFFUSIONS. Chest X-Ray 10/17/17 00:00 IMPRESSION: No acute findings. Stable right lung mass. Support devices in expected locations. Status: Imported from PACS Assessment & Plan - Diagnosis (1) Acute and chronic respiratory failure ([id number]) Qualifiers: Respiratory failure complication: hypoxia and hypercapnia Qualified Code(s) : J96.21 - Acute and chronic respiratory failure with hypoxia; J96.22 - Acute and chronic respiratory failure with hypercapnia; J96.22 - Acute and chronic respiratory failure with hypercapnia; J96.22 - Acute and chronic respiratory failure with hypercapnia Is this a current diagnosis for this admission?: Yes Plan: slowly improving but not back to baseline; states she doesn't wear O2 at home. extubated 10/18 (2) Pneumonia Qualifiers: Pneumonia type: due to unspecified organism Laterality: unspecified laterality Lung location: unspecified part of lung Qualified Code(s): J18.9 - Pneumonia, unspecified organism Is this a current diagnosis for this admission?: Yes Plan: improved but not back to baseline; continue levaquin and zyvox, CPAP as needed and at night. (3) Lung cancer Qualifiers: Lung location: overlapping sites Is this a current diagnosis for this admission?: Yes Plan: bilat disease and has oncology f/u as outpt (4) CHF (congestive heart failure) Qualifiers: Heart failure type: combined systolic and diastolic Heart failure chronicity: acute on chronic Qualified Code(s): I50.43 - Acute on chronic combined systolic (congestive) and diastolic (congestive) heart failure Is this a current diagnosis for this admission?: Yes Plan: stable; continue current care (5) Pulmonary hypertension Is this a current diagnosis for this admission?: Yes Plan: stable; continue current care (6) Anasarca Is this a current diagnosis for this admission?: Yes Plan: resolved (7) Hypokalemia Is this a current diagnosis for this admission?: Yes Plan: mild; stable; continue current care - Time Time Spent with patient: 25-34 minutes Medications reviewed and adjusted accordingly: Yes
[2017-10-22] MEDS ORDERED: POTASSIUM CHLORIDE 10 MEQ TABLET.SA PO ONE (13:00)
[2017-10-22] MEDS: PREDNISONE 20 MG TABLET PO SCH (13:21)
[2017-10-22] MEDS: SIMVASTATIN 40 MG TABLET PO SCH (21:02)
[2017-10-22] MEDS: MONTELUKAST SODIUM 10 MG TABLET PO SCH (21:02)
[2017-10-22] MEDS: ALPRAZOLAM 0.25 MG TABLET PO PRN (21:02)
[2017-10-23] MEDS: HEPARIN SOD (PORCINE) 5,000 UNIT/ML 1 ML SYRINGE SUBCUT SCH ×3 (01:45→17:09)
[2017-10-23] MEDS: ALPRAZOLAM 0.25 MG TABLET PO PRN (04:54)
[2017-10-23 05:32] LABS: ANION GAP 6 (5-19); BLOOD UREA NITROGEN 16 mg/dL (7-20); CALCIUM 9.4 mg/dL (8.4-10.2); CARBON DIOXIDE 34 mmol/L (22-30); CHLORIDE 92 mmol/L (98-107); GLUCOSE 82 mg/dL (75-110); POTASSIUM 3.8 mmol/L (3.6-5.0); SODIUM 132.4 mmol/L (137-145)
[2017-10-23] MEDS: LINEZOLID 600 MG TABLET PO SCH (09:08)
[2017-10-23] MEDS: LISINOPRIL 5 MG TABLET PO SCH (09:08)
[2017-10-23] MEDS: FLUTICASONE/SALMETEROL DISKUS 500-50 MCG/DOSE IH SCH (09:08)
[2017-10-23] MEDS: POTASSIUM CHLORIDE 10 MEQ TABLET.SA PO SCH (09:09)
[2017-10-23] MEDS: METOPROLOL SUCCINATE 25 MG TAB.SR.24H PO SCH (09:09)
[2017-10-23] MEDS: TIOTROPIUM BROMIDE DPI 5 CAP/KIT (18 MCG/CAP) IH SCH (09:09)
[2017-10-23] MEDS: ROFLUMILAST 500 MCG TABLET PO SCH (09:09)
[2017-10-23] MEDS: IPRATROPIUM/ALBUTEROL 0.5-2.5 MG/3 ML AMPUL NEB PRN (10:58)
[2017-10-23] MEDS: LEVOFLOXACIN 750 MG TABLET PO SCH (12:02)
[2017-10-23] MEDS: PREDNISONE 20 MG TABLET PO SCH (13:32)
--- NOTE | 2017-10-23 14:28 | PDOC PROGRESS REPORT ---
Subjective Progress Note for:: 10/18/17 Subjective:: stable;intubated Reason For Visit: ACUTE ON CHRONIC RESPIRATORY FAILURE Physical Exam Vital Signs: Temp Pulse Resp BP Pulse Ox 97.9 F 100 23 H 128/58 H 98 10/18/17 08:00 10/18/17 08:00 10/18/17 08:00 10/18/17 08:00 10/18/17 08:00 Intake & Output 10/17/17 10/18/17 10/19/17 06:59 06:59 06:59 Intake Total 3325 4416 Output Total 4620 2320 120 Balance -1295 2096 -120 Weight 60.9 kg 60.9 kg Results Laboratory Results: 10/18/17 06:30 10/18/17 06:30 10/17/17 10/18/17 10/18/17 12:05 06:30 06:30 WBC 11.9 H RBC 3.71 L Hgb 11.0 L Hct 33.1 L MCV 89 MCH 29.6 MCHC 33.2 RDW 15.3 H Plt Count 126 L Seg Neutrophils % Not Reportable Lymphocytes % Not Reportable Monocytes % Not Reportable Eosinophils % Not Reportable Basophils % Not Reportable Absolute Neutrophils Not Reportable Absolute Lymphocytes Not Reportable Absolute Monocytes Not Reportable Absolute Eosinophils Not Reportable Absolute Basophils Not Reportable Carbonic Acid 1.42 H HCO3/H2CO3 Ratio 27:1 ABG pH 7.53 H ABG pCO2 47.1 H ABG pO2 57.4 L ABG HCO3 38.6 H ABG O2 Saturation 92.3 L ABG Base Excess 14.2 FiO2 30% Sodium 135.4 L Potassium 4.2 D Chloride 93 L Carbon Dioxide 40 H* Anion Gap 2 L BUN 17 Creatinine 0.63 Est GFR ( Amer) > 60 Est GFR (Non-Af Amer) > 60 Glucose 163 H Calcium 8.6 Magnesium 1.7 Total Bilirubin 0.1 L AST 56 H ALT 37 Alkaline Phosphatase 61 Total Protein 4.2 L Albumin 2.5 L 10/18/17 06:40 WBC RBC Hgb Hct MCV MCH MCHC RDW Plt Count Seg Neutrophils % Lymphocytes % Monocytes % Eosinophils % Basophils % Absolute Neutrophils Absolute Lymphocytes Absolute Monocytes Absolute Eosinophils Absolute Basophils Carbonic Acid 1.70 H HCO3/H2CO3 Ratio 22:1 ABG pH 7.44 ABG pCO2 56.5 H ABG pO2 252.4 H ABG HCO3 37.4 H ABG O2 Saturation 99.6 H ABG Base Excess 11.3 FiO2 60% Sodium Potassium Chloride Carbon Dioxide Anion Gap BUN Creatinine Est GFR ( Amer) Est GFR (Non-Af Amer) Glucose Calcium Magnesium Total Bilirubin AST ALT Alkaline Phosphatase Total Protein Albumin 10/15/17 10/15/17 10/16/17 15:33 21:25 03:42 Troponin I 0.099 0.202 0.150 NT-Pro-B Natriuret Pep 10/17/17 10/17/17 10:00 14:50 Troponin I 0.131 NT-Pro-B Natriuret Pep 635 H Impressions: Chest/Abdomen CTA 10/15/17 00:00 IMPRESSION: 1. NORMAL CTA OF THE CHEST. NO PULMONARY EMBOLI. 2. CAVITARY MASS IN THE ANTERIOR RIGHT LOWER LOBE WITH IRREGULAR THICKENED WALL. THIS PROBABLY REPRESENTS NECROTIC TUMOR ALTHOUGH CAVITARY PNEUMONIA COULD BE POSSIBLE. 3. IRREGULAR SOFT TISSUE MASS IN THE APEX OF THE LEFT CHEST. THIS COULD REPRESENT APICAL SCARRING ALTHOUGH MALIGNANT PROCESS SUSPECTED. 4. CHRONIC EMPHYSEMATOUS CHANGES WITH SCARRING. BILATERAL PLEURAL EFFUSIONS. Chest X-Ray 10/17/17 00:00 IMPRESSION: No acute findings. Stable right lung mass. Support devices in expected locations. Assessment & Plan - Diagnosis (1) Acute and chronic respiratory failure ([id number]) Qualifiers: Respiratory failure complication: hypoxia and hypercapnia Qualified Code(s) : J96.21 - Acute and chronic respiratory failure with hypoxia; J96.22 - Acute and chronic respiratory failure with hypercapnia; J96.22 - Acute and chronic respiratory failure with hypercapnia; J96.22 - Acute and chronic respiratory failure with hypercapnia Is this a current diagnosis for this admission?: Yes Plan: rr min vent FIO2 suggest extubation will extubate (2) Lung cancer Qualifiers: Lung location: overlapping sites Is this a current diagnosis for this admission?: Yes (3) Pneumonia Qualifiers: Pneumonia type: due to unspecified organism Laterality: unspecified laterality Lung location: unspecified part of lung Qualified Code(s): J18.9 - Pneumonia, unspecified organism Is this a current diagnosis for this admission?: Yes (4) Tobacco abuse Is this a current diagnosis for this admission?: Yes - Time Total Critical Time (Minutes): 55
--- NOTE | 2017-10-23 14:33 | PDOC PROGRESS REPORT ---
Subjective Progress Note for:: 10/19/17 Subjective:: stable s/p extubation Reason For Visit: ACUTE ON CHRONIC RESPIRATORY FAILURE Physical Exam Vital Signs: Temp Pulse Resp BP Pulse Ox 98.0 F 92 16 102/53 L 99 10/23/17 12:00 10/23/17 12:00 10/23/17 12:00 10/23/17 12:00 10/23/17 12:00 Intake & Output 10/22/17 10/23/17 10/24/17 06:59 06:59 06:59 Intake Total 1480 1110 Output Total 2200 2100 Balance -720 -990 Weight 53.7 kg 53.7 kg General appearance: PRESENT: no acute distress, disheveled, well-developed Head exam: PRESENT: atraumatic, normocephalic Eye exam: PRESENT: conjunctiva pale, EOMI. ABSENT: nystagmus, periorbital swelling, scleral icterus Mouth exam: PRESENT: dry mucosa, neck supple, tongue midline Neck exam: ABSENT: carotid bruit, JVD, lymphadenopathy, thyromegaly, tracheal deviation, tracheostomy Respiratory exam: PRESENT: decreased breath sounds, prolonged expiratory phas, rhonchi, symmetrical, unlabored, wheezes. ABSENT: accessory muscle use, chest wall tenderness, clear to auscultation tameka, retraction, stridor, tachypnea Cardiovascular exam: PRESENT: RRR, +S1, +S2, systolic murmur Pulses: PRESENT: normal radial pulses GI/Abdominal exam: PRESENT: diminished bowel sounds, soft Gentrourinary exam: PRESENT: indwelling catheter Extremities exam: ABSENT: clubbing Musculoskeletal exam: ABSENT: deformity, dislocation Neurological exam: PRESENT: awake Skin exam: PRESENT: dry, warm Results Laboratory Results: 10/22/17 06:30 10/23/17 05:00 10/23/17 05:00 Sodium 132.4 L Potassium 3.8 Chloride 92 L Carbon Dioxide 34 H Anion Gap 6 BUN 16 Creatinine 0.65 Est GFR ( Amer) > 60 Est GFR (Non-Af Amer) > 60 Glucose 82 Calcium 9.4 10/15/17 10/15/17 10/16/17 15:33 21:25 03:42 Troponin I 0.099 0.202 0.150 NT-Pro-B Natriuret Pep 02/12/18 02/12/18 10:00 14:50 Troponin I 0.131 NT-Pro-B Natriuret Pep 635 H Impressions: Chest/Abdomen CTA 10/15/17 00:00 IMPRESSION: 1. NORMAL CTA OF THE CHEST. NO PULMONARY EMBOLI. 2. CAVITARY MASS IN THE ANTERIOR RIGHT LOWER LOBE WITH IRREGULAR THICKENED WALL. THIS PROBABLY REPRESENTS NECROTIC TUMOR ALTHOUGH CAVITARY PNEUMONIA COULD BE POSSIBLE. 3. IRREGULAR SOFT TISSUE MASS IN THE APEX OF THE LEFT CHEST. THIS COULD REPRESENT APICAL SCARRING ALTHOUGH MALIGNANT PROCESS SUSPECTED. 4. CHRONIC EMPHYSEMATOUS CHANGES WITH SCARRING. BILATERAL PLEURAL EFFUSIONS. Chest X-Ray 10/17/17 00:00 IMPRESSION: No acute findings. Stable right lung mass. Support devices in expected locations. Assessment & Plan - Diagnosis (1) Acute and chronic respiratory failure ([id number]) Qualifiers: Respiratory failure complication: hypoxia and hypercapnia Qualified Code(s) : J96.21 - Acute and chronic respiratory failure with hypoxia; J96.22 - Acute and chronic respiratory failure with hypercapnia; J96.22 - Acute and chronic respiratory failure with hypercapnia; J96.22 - Acute and chronic respiratory failure with hypercapnia Is this a current diagnosis for this admission?: Yes Plan: s/p extubation (2) Lung cancer Qualifiers: Lung location: overlapping sites Is this a current diagnosis for this admission?: Yes Plan: as per oncology (3) Pneumonia Qualifiers: Pneumonia type: due to unspecified organism Laterality: unspecified laterality Lung location: unspecified part of lung Qualified Code(s): J18.9 - Pneumonia, unspecified organism Is this a current diagnosis for this admission?: Yes Plan: carmel species no bacterial pathogens noted (4) Tobacco abuse Is this a current diagnosis for this admission?: Yes - Time Total Critical Time (Minutes): 40
--- NOTE | 2017-10-23 14:38 | PDOC PROGRESS REPORT ---
Subjective Progress Note for:: 10/20/17 Subjective:: stable Reason For Visit: ACUTE ON CHRONIC RESPIRATORY FAILURE Physical Exam Vital Signs: Temp Pulse Resp BP Pulse Ox 98.0 F 92 16 102/53 L 99 10/23/17 12:00 10/23/17 12:00 10/23/17 12:00 10/23/17 12:00 10/23/17 12:00 Intake & Output 10/22/17 10/23/17 10/24/17 06:59 06:59 06:59 Intake Total 1480 1110 Output Total 2200 2100 Balance -720 -990 Weight 53.7 kg 53.7 kg General appearance: PRESENT: no acute distress, well-developed. ABSENT: disheveled, mild distress, morbidly obese, severe distress Head exam: PRESENT: atraumatic, normocephalic Eye exam: PRESENT: conjunctiva pale, EOMI. ABSENT: nystagmus, periorbital swelling, scleral icterus Mouth exam: PRESENT: dry mucosa, neck supple, tongue midline Neck exam: ABSENT: carotid bruit, JVD, lymphadenopathy, thyromegaly, tracheal deviation, tracheostomy Respiratory exam: PRESENT: decreased breath sounds, prolonged expiratory phas, rhonchi, symmetrical, unlabored. ABSENT: accessory muscle use, chest wall tenderness, clear to auscultation tameka, crackles, retraction, stridor, tachypnea Cardiovascular exam: PRESENT: irregular rhythm Pulses: PRESENT: normal radial pulses GI/Abdominal exam: PRESENT: diminished bowel sounds. ABSENT: soft Gentrourinary exam: PRESENT: indwelling catheter Extremities exam: ABSENT: clubbing Musculoskeletal exam: ABSENT: deformity, dislocation Neurological exam: PRESENT: awake Skin exam: PRESENT: dry, warm Results Laboratory Results: 10/22/17 06:30 10/23/17 05:00 10/23/17 05:00 Sodium 132.4 L Potassium 3.8 Chloride 92 L Carbon Dioxide 34 H Anion Gap 6 BUN 16 Creatinine 0.65 Est GFR ( Amer) > 60 Est GFR (Non-Af Amer) > 60 Glucose 82 Calcium 9.4 10/15/17 10/15/17 10/16/17 15:33 21:25 03:42 Troponin I 0.099 0.202 0.150 NT-Pro-B Natriuret Pep 10/17/17 10/17/17 10:00 14:50 Troponin I 0.131 NT-Pro-B Natriuret Pep 635 H Impressions: Chest/Abdomen CTA 10/15/17 00:00 IMPRESSION: 1. NORMAL CTA OF THE CHEST. NO PULMONARY EMBOLI. 2. CAVITARY MASS IN THE ANTERIOR RIGHT LOWER LOBE WITH IRREGULAR THICKENED WALL. THIS PROBABLY REPRESENTS NECROTIC TUMOR ALTHOUGH CAVITARY PNEUMONIA COULD BE POSSIBLE. 3. IRREGULAR SOFT TISSUE MASS IN THE APEX OF THE LEFT CHEST. THIS COULD REPRESENT APICAL SCARRING ALTHOUGH MALIGNANT PROCESS SUSPECTED. 4. CHRONIC EMPHYSEMATOUS CHANGES WITH SCARRING. BILATERAL PLEURAL EFFUSIONS. Chest X-Ray 10/17/17 00:00 IMPRESSION: No acute findings. Stable right lung mass. Support devices in expected locations. Assessment & Plan - Diagnosis (1) Acute and chronic respiratory failure ([id number]) Qualifiers: Respiratory failure complication: hypoxia and hypercapnia Qualified Code(s) : J96.21 - Acute and chronic respiratory failure with hypoxia; J96.22 - Acute and chronic respiratory failure with hypercapnia; J96.22 - Acute and chronic respiratory failure with hypercapnia; J96.22 - Acute and chronic respiratory failure with hypercapnia Is this a current diagnosis for this admission?: Yes Plan: s/p extubation continues to improve (2) Lung cancer Qualifiers: Lung location: overlapping sites Is this a current diagnosis for this admission?: Yes Plan: as per oncology (3) Pneumonia Qualifiers: Pneumonia type: due to unspecified organism Laterality: unspecified laterality Lung location: unspecified part of lung Qualified Code(s): J18.9 - Pneumonia, unspecified organism Is this a current diagnosis for this admission?: Yes Plan: carmel species no bacterial pathogens noted (4) Tobacco abuse Is this a current diagnosis for this admission?: Yes - Time Total Critical Time (Minutes): 35
--- NOTE | 2017-10-23 16:38 | PDOC PROGRESS REPORT ---
Subjective Progress Note for:: 10/23/17 Subjective:: she seems to be improving regarding her respiratory status but her mentation is worsening. she is now hallucinating - seeing small children in the room that are not there, hearing voices, and paranoid - she is convinced we are trying to harm her "if I could just see a picture of that woman doctor that was taking care of me to see if she is mine then I will know". I couldn't get her to participate in an exam, any effort to listen to lungs was met with increased agitation and worsening paranoia. She reported to her nurse that she is schizophrenic and should be on meds. No family present today. ROS: unable to obtain due to her mental state Reason For Visit: ACUTE ON CHRONIC RESPIRATORY FAILURE Physical Exam Vital Signs: Temp Pulse Resp BP Pulse Ox 98.0 F 92 16 102/53 L 99 10/23/17 12:00 10/23/17 12:00 10/23/17 12:00 10/23/17 12:00 10/23/17 12:00 Intake & Output 10/22/17 10/23/17 10/24/17 06:59 06:59 06:59 Intake Total 1480 1110 Output Total 2200 2100 Balance -720 -990 Weight 53.7 kg 53.7 kg General appearance: PRESENT: disheveled, mild distress, thin, well-developed Head exam: PRESENT: atraumatic, normocephalic Eye exam: PRESENT: EOMI. ABSENT: scleral icterus Ear exam: PRESENT: normal external ear exam Mouth exam: PRESENT: moist Neck exam: PRESENT: full ROM Respiratory exam: PRESENT: unlabored. ABSENT: accessory muscle use, prolonged expiratory phas Cardiovascular exam: PRESENT: other - she removed the telemetry pads Extremities exam: ABSENT: pedal edema Musculoskeletal exam: PRESENT: full ROM Neurological exam: PRESENT: alert, awake, oriented to person, oriented to place , oriented to time. ABSENT: oriented to situation Psychiatric exam: PRESENT: agitated, anxious Focused psych exam: PRESENT: delusional, paranoid, psychomotor agitation, restlessness Skin exam: PRESENT: dry Results Laboratory Results: 10/22/17 06:30 10/23/17 05:00 10/23/17 05:00 Sodium 132.4 L Potassium 3.8 Chloride 92 L Carbon Dioxide 34 H Anion Gap 6 BUN 16 Creatinine 0.65 Est GFR ( Amer) > 60 Est GFR (Non-Af Amer) > 60 Glucose 82 Calcium 9.4 10/15/17 10/15/17 10/16/17 15:33 21:25 03:42 Troponin I 0.099 0.202 0.150 NT-Pro-B Natriuret Pep 10/17/17 10/17/17 10:00 14:50 Troponin I 0.131 NT-Pro-B Natriuret Pep 635 H Impressions: Assessment & Plan - Diagnosis (1) Hallucinations Is this a current diagnosis for this admission?: Yes Plan: new: unclear etiology, possibly levaquin?, possibly prednisone? possibly xanax withdrawal as she's not received since 10/16. will d/c both, change to augmentin, continue zyvox and add low dose zyprexa and schedule her home dose of xanax, d/c underwood and telemetry, monitoring for response (2) Acute and chronic respiratory failure ([id number]) Qualifiers: Respiratory failure complication: hypoxia and hypercapnia Qualified Code(s) : J96.21 - Acute and chronic respiratory failure with hypoxia; J96.22 - Acute and chronic respiratory failure with hypercapnia; J96.22 - Acute and chronic respiratory failure with hypercapnia; J96.22 - Acute and chronic respiratory failure with hypercapnia Is this a current diagnosis for this admission?: Yes Plan: slowly improving but not back to baseline; states she doesn't wear O2 at home. extubated 10/18 (3) Pneumonia Qualifiers: Pneumonia type: due to unspecified organism Laterality: unspecified laterality Lung location: unspecified part of lung Qualified Code(s): J18.9 - Pneumonia, unspecified organism Is this a current diagnosis for this admission?: Yes Plan: improved but not back to baseline; adjust abx as noted above and monitor for worsening; review of her cultures show no dominant pathogen (4) Lung cancer Qualifiers: Lung location: overlapping sites Is this a current diagnosis for this admission?: Yes (5) CHF (congestive heart failure) Qualifiers: Heart failure type: combined systolic and diastolic Heart failure chronicity: acute on chronic Qualified Code(s): I50.43 - Acute on chronic combined systolic (congestive) and diastolic (congestive) heart failure Is this a current diagnosis for this admission?: Yes (6) Pulmonary hypertension Is this a current diagnosis for this admission?: Yes (7) Anasarca Is this a current diagnosis for this admission?: Yes (8) Hypokalemia Is this a current diagnosis for this admission?: Yes - Time Time Spent with patient: 25-34 minutes Medications reviewed and adjusted accordingly: Yes
[2017-10-23] MEDS ORDERED: OLANZAPINE 5 MG TABLET PO ONE (17:00)
[2017-10-23] MEDS ORDERED: LORAZEPAM INJ 2 MG/1 ML VIAL IV ONE (23:00)
[2017-10-23] MEDS ORDERED: HALOPERIDOL LACTATE INJ 5 MG/1 ML VIAL IV ONE (23:00)
[2017-10-23] MEDS: AMOXICILLIN TR/POT CLAVULANATE 500-125 MG TAB PO SCH (23:59)
[2017-10-24] MEDS: FLUTICASONE/SALMETEROL DISKUS 500-50 MCG/DOSE IH SCH ×3 (00:01→21:02)
[2017-10-24] MEDS: HEPARIN SOD (PORCINE) 5,000 UNIT/ML 1 ML SYRINGE SUBCUT SCH ×3 (02:42→18:33)
[2017-10-24] MEDS ORDERED: LORAZEPAM INJ 2 MG/1 ML VIAL IV ONE (03:30)
[2017-10-24] MEDS ORDERED: HALOPERIDOL LACTATE INJ 5 MG/1 ML VIAL IV ONE (03:30)
[2017-10-24] MEDS: AMOXICILLIN TR/POT CLAVULANATE 500-125 MG TAB PO SCH ×3 (05:16→21:00)
[2017-10-24] MEDS: ALPRAZOLAM 0.25 MG TABLET PO SCH ×4 (05:17→21:00)
[2017-10-24 05:47] LABS: ANION GAP 6 (5-19); BLOOD UREA NITROGEN 12 mg/dL (7-20); CALCIUM 9.2 mg/dL (8.4-10.2); CARBON DIOXIDE 32 mmol/L (22-30); CHLORIDE 98 mmol/L (98-107); GLUCOSE 85 mg/dL (75-110); PHOSPHORUS 2.9 mg/dL (2.5-4.5); POTASSIUM 3.8 mmol/L (3.6-5.0)
[2017-10-24 05:48] LABS: ABSOLUTE LYMPHOCYTES (AUTO) 0.9 10^3/uL (0.5-4.7); ABSOLUTE MONOCYTES (AUTO) 0.7 10^3/uL (0.1-1.4); ABSOLUTE NEUT (AUTO) 4.5 10^3/uL (1.7-8.2); BASOPHILS % (AUTO) 0.1 % (0-2); EOSINOPHILS % (AUTO) 0.6 % (0-6); HEMATOCRIT 35.8 % (36.0-47.0); HEMOGLOBIN 11.7 g/dL (12.0-15.5); MEAN CORPUSCULAR HEMOGLOBIN 29.4 pg (27.0-33.4); MEAN CORPUSCULAR HGB CONC 32.8 g/dL (32.0-36.0); MEAN CORPUSCULAR VOLUME 90 fl (80-97); MONOCYTES % (AUTO) 11.2 % (3-13); PLATELET COUNT 120 10^3/uL (150-450); RED BLOOD COUNT 3.99 10^6/uL (3.72-5.28); RED CELL DISTRIBUTION WIDTH 15.3 % (11.5-14.0); SEGMENTED NEUTROPHILS % (AUTO) 73.1 % (42-78); TOTAL CELLS COUNTED % (AUTO) 100 %; WHITE BLOOD COUNT 6.1 10^3/uL (4.0-10.5)
[2017-10-24] MEDS: LINEZOLID 600 MG TABLET PO SCH ×3 (14:06→21:02)
[2017-10-24] MEDS: LISINOPRIL 5 MG TABLET PO SCH (14:06)
[2017-10-24] MEDS: POTASSIUM CHLORIDE 10 MEQ TABLET.SA PO SCH (14:06)
[2017-10-24] MEDS: ROFLUMILAST 500 MCG TABLET PO SCH (14:06)
[2017-10-24] MEDS: METOPROLOL SUCCINATE 25 MG TAB.SR.24H PO SCH (14:06)
[2017-10-24] MEDS: TIOTROPIUM BROMIDE DPI 5 CAP/KIT (18 MCG/CAP) IH SCH (14:06)
--- NOTE | 2017-10-24 19:39 | PDOC PROGRESS REPORT ---
Subjective Progress Note for:: 10/24/17 Subjective:: This is a follow-up visit for acute on chronic respiratory failure and pneumonia in the setting of lung cancer. Patient had hallucinations yesterday. She tells me that this has not been an issue for her today. She did get up twice to walk to the bathroom with assistance and is quite happy about this. Reason For Visit: ACUTE ON CHRONIC RESPIRATORY FAILURE Physical Exam Vital Signs: Temp Pulse Resp BP Pulse Ox 97.7 F 81 20 115/40 L 98 10/24/17 15:13 10/24/17 15:13 10/24/17 15:13 10/24/17 15:13 10/24/17 15:13 Intake & Output 10/23/17 10/24/17 10/25/17 06:59 06:59 06:59 Intake Total 1110 635 30 Output Total 2100 260 Balance -990 375 30 Weight 53.7 kg 53.7 kg GENERAL: This is a well-developed thin and nourished elderly white female resting in bed currently in no acute distress HEART: Regular rate and rhythm. Positive murmur. No rubs or gallops. LUNGS: Diminished at the bases bilaterally with equal rise and fall of the chest. ABDOMEN: Soft, nontender, nondistended with normoactive bowel sounds EXTREMETIES: No clubbing, cyanosis or edema. 2+ peripheral pulses bilaterally. NEURO: Awake, alert. Cranial nerves II through XII are grossly intact. Results Laboratory Results: 10/24/17 05:20 10/24/17 05:20 10/24/17 10/24/17 05:20 05:20 WBC 6.1 RBC 3.99 Hgb 11.7 L Hct 35.8 L MCV 90 MCH 29.4 MCHC 32.8 RDW 15.3 H Plt Count 120 L Seg Neutrophils % 73.1 Lymphocytes % 15.0 Monocytes % 11.2 Eosinophils % 0.6 Basophils % 0.1 Absolute Neutrophils 4.5 Absolute Lymphocytes 0.9 Absolute Monocytes 0.7 Absolute Eosinophils 0.0 Absolute Basophils 0.0 Sodium 136.0 L Potassium 3.8 Chloride 98 Carbon Dioxide 32 H Anion Gap 6 BUN 12 Creatinine 0.60 Est GFR ( Amer) > 60 Est GFR (Non-Af Amer) > 60 Glucose 85 Calcium 9.2 Phosphorus 2.9 Magnesium 2.0 02/06/2210/15/17 10/16/17 15:33 21:25 03:42 Troponin I 0.099 0.202 0.150 NT-Pro-B Natriuret Pep 10/17/17 10/17/17 10:00 14:50 Troponin I 0.131 NT-Pro-B Natriuret Pep 635 H Impressions: Chest/Abdomen CTA 10/15/17 00:00 IMPRESSION: 1. NORMAL CTA OF THE CHEST. NO PULMONARY EMBOLI. 2. CAVITARY MASS IN THE ANTERIOR RIGHT LOWER LOBE WITH IRREGULAR THICKENED WALL. THIS PROBABLY REPRESENTS NECROTIC TUMOR ALTHOUGH CAVITARY PNEUMONIA COULD BE POSSIBLE. 3. IRREGULAR SOFT TISSUE MASS IN THE APEX OF THE LEFT CHEST. THIS COULD REPRESENT APICAL SCARRING ALTHOUGH MALIGNANT PROCESS SUSPECTED. 4. CHRONIC EMPHYSEMATOUS CHANGES WITH SCARRING. BILATERAL PLEURAL EFFUSIONS. Chest X-Ray 10/17/17 00:00 IMPRESSION: No acute findings. Stable right lung mass. Support devices in expected locations. Assessment & Plan - Diagnosis (1) Acute and chronic respiratory failure ([id number]) Qualifiers: Respiratory failure complication: hypoxia and hypercapnia Qualified Code(s) : J96.21 - Acute and chronic respiratory failure with hypoxia; J96.22 - Acute and chronic respiratory failure with hypercapnia; J96.22 - Acute and chronic respiratory failure with hypercapnia; J96.22 - Acute and chronic respiratory failure with hypercapnia Is this a current diagnosis for this admission?: Yes Plan: Improved. Likely due to underlying lung cancer, pneumonia. (2) Hallucinations Is this a current diagnosis for this admission?: Yes Plan: Seems to have improved. The patient is speaking rationally at the moment. She denies seeing any objects that are not there. It was suspected yesterday that this could be due to her medications and so some of them were switched around. (3) Lung cancer Qualifiers: Lung location: overlapping sites Is this a current diagnosis for this admission?: Yes (4) Pneumonia Qualifiers: Pneumonia type: due to unspecified organism Laterality: unspecified laterality Lung location: unspecified part of lung Qualified Code(s): J18.9 - Pneumonia, unspecified organism Is this a current diagnosis for this admission?: Yes Plan: Continue Augmentin and Linezolid. (5) Pulmonary hypertension Is this a current diagnosis for this admission?: Yes Plan: Stable. (6) HTN (hypertension) Qualifiers: Hypertension type: essential hypertension Qualified Code(s): I10 - Essential (primary) hypertension Is this a current diagnosis for this admission?: Yes Plan: Continue current antihypertensives. - Time Time Spent with patient: 15-24 minutes
[2017-10-24] MEDS: ACETAMINOPHEN 325 MG TABLET PO PRN (20:59)
[2017-10-24] MEDS: OLANZAPINE 5 MG TABLET PO SCH (21:00)
[2017-10-24] MEDS: SIMVASTATIN 40 MG TABLET PO SCH ×2 (21:00)
[2017-10-25] MEDS: HEPARIN SOD (PORCINE) 5,000 UNIT/ML 1 ML SYRINGE SUBCUT SCH ×3 (03:57→17:02)
[2017-10-25] MEDS: ALPRAZOLAM 0.25 MG TABLET PO SCH ×3 (06:19→21:05)
[2017-10-25] MEDS: AMOXICILLIN TR/POT CLAVULANATE 500-125 MG TAB PO SCH ×3 (06:19→21:05)
[2017-10-25] MEDS: ACETAMINOPHEN 325 MG TABLET PO PRN (06:21)
[2017-10-25] MEDS: ROFLUMILAST 500 MCG TABLET PO SCH (09:15)
[2017-10-25] MEDS: LISINOPRIL 5 MG TABLET PO SCH (09:15)
[2017-10-25] MEDS: POTASSIUM CHLORIDE 10 MEQ TABLET.SA PO SCH (09:15)
[2017-10-25] MEDS: METOPROLOL SUCCINATE 25 MG TAB.SR.24H PO SCH (09:15)
[2017-10-25] MEDS: TIOTROPIUM BROMIDE DPI 5 CAP/KIT (18 MCG/CAP) IH SCH (09:15)
[2017-10-25] MEDS: LINEZOLID 600 MG TABLET PO SCH ×2 (09:15→21:05)
[2017-10-25] MEDS: FLUTICASONE/SALMETEROL DISKUS 500-50 MCG/DOSE IH SCH ×2 (09:15→21:05)
--- NOTE | 2017-10-25 18:32 | PDOC PROGRESS REPORT ---
Subjective Progress Note for:: 10/25/17 Subjective:: Pt states that she is doing well today. Pt states that she is doing well today. Nursing states the patient has been up ambulating around room without difficulty. Reason For Visit: ACUTE ON CHRONIC RESPIRATORY FAILURE Physical Exam Vital Signs: Temp Pulse Resp BP Pulse Ox 98.2 F 100 20 100/53 L 96 10/25/17 15:59 10/25/17 15:59 10/25/17 15:59 10/25/17 15:59 10/25/17 15:59 Intake & Output 10/24/17 10/25/17 10/26/17 06:59 06:59 06:59 Intake Total 635 370 595 Output Total 260 Balance 375 370 595 Weight 53.7 kg 53.7 kg General appearance: PRESENT: no acute distress, well-developed, well-nourished Head exam: PRESENT: atraumatic, normocephalic Eye exam: PRESENT: conjunctiva pink, EOMI. ABSENT: scleral icterus Ear exam: PRESENT: normal external ear exam Mouth exam: PRESENT: moist, tongue midline Neck exam: ABSENT: carotid bruit, JVD, lymphadenopathy, thyromegaly Respiratory exam: PRESENT: clear to auscultation [place]. ABSENT: rales, rhonchi, wheezes Cardiovascular exam: PRESENT: RRR, systolic murmur. ABSENT: diastolic murmur, rubs Pulses: PRESENT: normal dorsalis pedis pul Vascular exam: PRESENT: normal capillary refill GI/Abdominal exam: PRESENT: normal bowel sounds, soft. ABSENT: distended, guarding, mass, organolmegaly, rebound, tenderness Rectal exam: PRESENT: deferred Extremities exam: PRESENT: full ROM. ABSENT: calf tenderness, clubbing, pedal edema Neurological exam: PRESENT: alert, awake, oriented to person, oriented to place , oriented to time, oriented to situation, CN II-XII grossly intact. ABSENT: motor sensory deficit Psychiatric exam: PRESENT: appropriate affect, normal mood. ABSENT: homicidal ideation, suicidal ideation Skin exam: PRESENT: dry, intact, warm. ABSENT: cyanosis, rash Results Laboratory Results: 10/24/17 05:20 10/24/17 05:20 10/15/17 10/15/17 10/16/17 15:33 21:25 03:42 Troponin I 0.099 0.202 0.150 NT-Pro-B Natriuret Pep 10/17/17 10/17/17 10:00 14:50 Troponin I 0.131 NT-Pro-B Natriuret Pep 635 H Impressions: Chest/Abdomen CTA 10/15/17 00:00 IMPRESSION: 1. NORMAL CTA OF THE CHEST. NO PULMONARY EMBOLI. 2. CAVITARY MASS IN THE ANTERIOR RIGHT LOWER LOBE WITH IRREGULAR THICKENED WALL. THIS PROBABLY REPRESENTS NECROTIC TUMOR ALTHOUGH CAVITARY PNEUMONIA COULD BE POSSIBLE. 3. IRREGULAR SOFT TISSUE MASS IN THE APEX OF THE LEFT CHEST. THIS COULD REPRESENT APICAL SCARRING ALTHOUGH MALIGNANT PROCESS SUSPECTED. 4. CHRONIC EMPHYSEMATOUS CHANGES WITH SCARRING. BILATERAL PLEURAL EFFUSIONS. Chest X-Ray 10/17/17 00:00 IMPRESSION: No acute findings. Stable right lung mass. Support devices in expected locations. Assessment & Plan - Diagnosis (1) Acute and chronic respiratory failure ([id number]) Qualifiers: Respiratory failure complication: hypoxia and hypercapnia Qualified Code(s) : J96.21 - Acute and chronic respiratory failure with hypoxia; J96.22 - Acute and chronic respiratory failure with hypercapnia; J96.22 - Acute and chronic respiratory failure with hypercapnia; J96.22 - Acute and chronic respiratory failure with hypercapnia Is this a current diagnosis for this admission?: Yes Plan: Secondary to lung cancer/ pneumonia:Linezolid and Augmentin. (2) HTN (hypertension) Qualifiers: Hypertension type: essential hypertension Qualified Code(s): I10 - Essential (primary) hypertension Is this a current diagnosis for this admission?: Yes (3) Hallucinations Is this a current diagnosis for this admission?: Yes Plan: Resolved. (4) Lung cancer Qualifiers: Lung location: overlapping sites Is this a current diagnosis for this admission?: Yes Plan: Patient will need follow-up with oncology as outpatient. (5) Pneumonia Qualifiers: Pneumonia type: due to unspecified organism Laterality: unspecified laterality Lung location: unspecified part of lung Qualified Code(s): J18.9 - Pneumonia, unspecified organism Is this a current diagnosis for this admission?: Yes Plan: Augmentin and Linezolid (6) Pulmonary hypertension Is this a current diagnosis for this admission?: Yes Plan: Supportive care. (7) Debility Is this a current diagnosis for this admission?: Yes Plan: PT/OT evaluation. - Time Time Spent with patient: 15-24 minutes
[2017-10-25] MEDS: OLANZAPINE 5 MG TABLET PO SCH (21:05)
[2017-10-25] MEDS: SIMVASTATIN 40 MG TABLET PO SCH (21:05)
[2017-10-26] MEDS: HEPARIN SOD (PORCINE) 5,000 UNIT/ML 1 ML SYRINGE SUBCUT SCH ×2 (01:03→12:15)
[2017-10-26] MEDS: ALPRAZOLAM 0.25 MG TABLET PO SCH ×3 (05:08→21:09)
[2017-10-26] MEDS: AMOXICILLIN TR/POT CLAVULANATE 500-125 MG TAB PO SCH ×2 (05:08→15:11)
[2017-10-26 07:07] LABS: ALANINE AMINOTRANSFERASE 81 U/L (9-52); ALBUMIN 2.8 g/dL (3.5-5.0); ALKALINE PHOSPHATASE 67 U/L (38-126); ANION GAP 6 (5-19); ASPARTATE AMINO TRANSFERASE 44 U/L (14-36); BILIRUBIN,DIRECT 0.1 mg/dL (0.0-0.4); BILIRUBIN,TOTAL 0.6 mg/dL (0.2-1.3); BLOOD UREA NITROGEN 13 mg/dL (7-20); CALCIUM 8.6 mg/dL (8.4-10.2); CARBON DIOXIDE 31 mmol/L (22-30); CHLORIDE 101 mmol/L (98-107); GLUCOSE 87 mg/dL (75-110); POTASSIUM 3.7 mmol/L (3.6-5.0); SODIUM 138.4 mmol/L (137-145); TOTAL PROTEIN 4.5 g/dL (6.3-8.2)
[2017-10-26 07:19] LABS: ABSOLUTE EOSINOPHILS # (AUTO) 0.3 10^3/uL (0.0-0.6); ABSOLUTE LYMPHOCYTES (AUTO) 1.1 10^3/uL (0.5-4.7); ABSOLUTE MONOCYTES (AUTO) 0.4 10^3/uL (0.1-1.4); ABSOLUTE NEUT (AUTO) 3.7 10^3/uL (1.7-8.2); BASOPHILS % (AUTO) 0.2 % (0-2); HEMATOCRIT 31.8 % (36.0-47.0); HEMOGLOBIN 10.6 g/dL (12.0-15.5); LYMPHOCYTES % (AUTO) 19.5 % (13-45); MEAN CORPUSCULAR HGB CONC 33.1 g/dL (32.0-36.0); MEAN CORPUSCULAR VOLUME 91 fl (80-97); MONOCYTES % (AUTO) 8.1 % (3-13); RED BLOOD COUNT 3.52 10^6/uL (3.72-5.28); RED CELL DISTRIBUTION WIDTH 15.5 % (11.5-14.0); SEGMENTED NEUTROPHILS % (AUTO) 67.2 % (42-78); TOTAL CELLS COUNTED % (AUTO) 100 %; WHITE BLOOD COUNT 5.4 10^3/uL (4.0-10.5)
[2017-10-26 08:25] LABS: PLATELET COUNT 83 10^3/uL (150-450)
[2017-10-26] MEDS: LINEZOLID 600 MG TABLET PO SCH (12:08)
[2017-10-26] MEDS: FLUTICASONE/SALMETEROL DISKUS 500-50 MCG/DOSE IH SCH ×2 (12:09→21:09)
[2017-10-26] MEDS: LISINOPRIL 5 MG TABLET PO SCH (12:12)
[2017-10-26] MEDS: METOPROLOL SUCCINATE 25 MG TAB.SR.24H PO SCH (12:12)
[2017-10-26] MEDS: ROFLUMILAST 500 MCG TABLET PO SCH (12:13)
[2017-10-26] MEDS: POTASSIUM CHLORIDE 10 MEQ TABLET.SA PO SCH (12:13)
[2017-10-26] MEDS: ACETAMINOPHEN 325 MG TABLET PO PRN (12:14)
[2017-10-26] MEDS: TIOTROPIUM BROMIDE DPI 5 CAP/KIT (18 MCG/CAP) IH SCH (15:09)
--- NOTE | 2017-10-26 16:21 | PDOC PROGRESS REPORT ---
Subjective Progress Note for:: 10/26/17 Subjective:: No new issues. Reason For Visit: ACUTE ON CHRONIC RESPIRATORY FAILURE Physical Exam Vital Signs: Temp Pulse Resp BP Pulse Ox 98.1 F 99 17 108/47 L 97 10/26/17 10:57 10/26/17 10:57 10/26/17 10:57 10/26/17 10:57 10/26/17 14:28 Intake & Output 10/25/17 10/26/17 10/27/17 06:59 06:59 06:59 Intake Total 370 886 Output Total 1200 Balance 370 -314 Weight 53.7 kg 47.4 kg General appearance: PRESENT: no acute distress, well-developed, well-nourished Head exam: PRESENT: atraumatic, normocephalic Eye exam: PRESENT: conjunctiva pink, EOMI. ABSENT: scleral icterus Ear exam: PRESENT: normal external ear exam Mouth exam: PRESENT: moist, tongue midline Neck exam: ABSENT: carotid bruit, JVD, lymphadenopathy, thyromegaly Respiratory exam: PRESENT: clear to auscultation [place]. ABSENT: rales, rhonchi, wheezes Cardiovascular exam: PRESENT: RRR. ABSENT: diastolic murmur, rubs, systolic murmur Pulses: PRESENT: normal dorsalis pedis pul Vascular exam: PRESENT: normal capillary refill GI/Abdominal exam: PRESENT: normal bowel sounds, soft. ABSENT: distended, guarding, mass, organolmegaly, rebound, tenderness Rectal exam: PRESENT: deferred Extremities exam: PRESENT: full ROM. ABSENT: calf tenderness, clubbing, pedal edema Musculoskeletal exam: PRESENT: full ROM Neurological exam: PRESENT: alert, awake, oriented to person, oriented to place , oriented to time, oriented to situation, CN II-XII grossly intact. ABSENT: motor sensory deficit Psychiatric exam: PRESENT: appropriate affect, normal mood. ABSENT: homicidal ideation, suicidal ideation Skin exam: PRESENT: dry, intact, warm. ABSENT: cyanosis, rash Results Laboratory Results: 10/26/17 05:00 10/26/17 05:00 10/26/17 10/26/17 05:00 05:00 WBC 5.4 RBC 3.52 L Hgb 10.6 L Hct 31.8 L MCV 91 MCH 30.0 MCHC 33.1 RDW 15.5 H Plt Count 83 L Seg Neutrophils % 67.2 Lymphocytes % 19.5 Monocytes % 8.1 Eosinophils % 5.0 Basophils % 0.2 Absolute Neutrophils 3.7 Absolute Lymphocytes 1.1 Absolute Monocytes 0.4 Absolute Eosinophils 0.3 Absolute Basophils 0.0 Sodium 138.4 Potassium 3.7 Chloride 101 Carbon Dioxide 31 H Anion Gap 6 BUN 13 Creatinine 0.64 Est GFR ( Amer) > 60 Est GFR (Non-Af Amer) > 60 Glucose 87 Calcium 8.6 Magnesium 1.9 Total Bilirubin 0.6 AST 44 H ALT 81 H Alkaline Phosphatase 67 Total Protein 4.5 L Albumin 2.8 L 10/15/17 10/15/17 10/16/17 15:33 21:25 03:42 Troponin I 0.099 0.202 0.150 NT-Pro-B Natriuret Pep 10/17/17 10/17/17 10:00 14:50 Troponin I 0.131 NT-Pro-B Natriuret Pep 635 H Impressions: Chest/Abdomen CTA 10/15/17 00:00 IMPRESSION: 1. NORMAL CTA OF THE CHEST. NO PULMONARY EMBOLI. 2. CAVITARY MASS IN THE ANTERIOR RIGHT LOWER LOBE WITH IRREGULAR THICKENED WALL. THIS PROBABLY REPRESENTS NECROTIC TUMOR ALTHOUGH CAVITARY PNEUMONIA COULD BE POSSIBLE. 3. IRREGULAR SOFT TISSUE MASS IN THE APEX OF THE LEFT CHEST. THIS COULD REPRESENT APICAL SCARRING ALTHOUGH MALIGNANT PROCESS SUSPECTED. 4. CHRONIC EMPHYSEMATOUS CHANGES WITH SCARRING. BILATERAL PLEURAL EFFUSIONS. Chest X-Ray 10/17/17 00:00 IMPRESSION: No acute findings. Stable right lung mass. Support devices in expected locations. Assessment & Plan - Diagnosis (1) Acute and chronic respiratory failure ([id number]) Qualifiers: Respiratory failure complication: hypoxia and hypercapnia Qualified Code(s) : J96.21 - Acute and chronic respiratory failure with hypoxia; J96.22 - Acute and chronic respiratory failure with hypercapnia; J96.22 - Acute and chronic respiratory failure with hypercapnia; J96.22 - Acute and chronic respiratory failure with hypercapnia Is this a current diagnosis for this admission?: Yes Plan: Secondary to lung cancer/ pneumonia:Completed treatment Linezolid and Augmentin. (2) HTN (hypertension) Qualifiers: Hypertension type: essential hypertension Qualified Code(s): I10 - Essential (primary) hypertension Is this a current diagnosis for this admission?: Yes Plan: Will continue current medications. (3) Hallucinations Is this a current diagnosis for this admission?: Yes Plan: Resolved. (4) Lung cancer Qualifiers: Lung location: overlapping sites Is this a current diagnosis for this admission?: Yes Plan: Patient will need follow-up with oncology as outpatient. (5) Pneumonia Qualifiers: Pneumonia type: due to unspecified organism Laterality: unspecified laterality Lung location: unspecified part of lung Qualified Code(s): J18.9 - Pneumonia, unspecified organism Is this a current diagnosis for this admission?: Yes Plan: Completed treatment Augmentin and Linezolid (6) Pulmonary hypertension Is this a current diagnosis for this admission?: Yes Plan: Supportive care. (7) Debility Is this a current diagnosis for this admission?: Yes Plan: PT/OT evaluation. (8) Thrombocytopenia Is this a current diagnosis for this admission?: Yes Plan: Heparin and heparin flushes have been discontinued. Will have patient central line removed as well. - Time Time Spent with patient: 15-24 minutes
[2017-10-26] MEDS: OLANZAPINE 5 MG TABLET PO SCH (21:09)
[2017-10-26] MEDS: SIMVASTATIN 40 MG TABLET PO SCH (21:09)
[2017-10-27] MEDS: ALPRAZOLAM 0.25 MG TABLET PO SCH ×3 (05:01→21:36)
[2017-10-27] MEDS: METOPROLOL SUCCINATE 25 MG TAB.SR.24H PO SCH (09:34)
[2017-10-27] MEDS: POTASSIUM CHLORIDE 10 MEQ TABLET.SA PO SCH (09:34)
[2017-10-27] MEDS: ROFLUMILAST 500 MCG TABLET PO SCH (09:34)
[2017-10-27] MEDS: LISINOPRIL 5 MG TABLET PO SCH (09:34)
[2017-10-27] MEDS: TIOTROPIUM BROMIDE DPI 5 CAP/KIT (18 MCG/CAP) IH SCH (09:35)
[2017-10-27] MEDS: FLUTICASONE/SALMETEROL DISKUS 500-50 MCG/DOSE IH SCH ×2 (09:35→21:36)
[2017-10-27] MEDS: ACETAMINOPHEN 325 MG TABLET PO PRN (09:39)
[2017-10-27 14:44] LABS: ABSOLUTE EOSINOPHILS # (AUTO) 0.3 10^3/uL (0.0-0.6); ABSOLUTE MONOCYTES (AUTO) 0.5 10^3/uL (0.1-1.4); ABSOLUTE NEUT (AUTO) 4.1 10^3/uL (1.7-8.2); BASOPHILS % (AUTO) 0.4 % (0-2); EOSINOPHILS % (AUTO) 4.5 % (0-6); HEMATOCRIT 35.2 % (36.0-47.0); HEMOGLOBIN 11.9 g/dL (12.0-15.5); LYMPHOCYTES % (AUTO) 17.5 % (13-45); MEAN CORPUSCULAR HEMOGLOBIN 30.1 pg (27.0-33.4); MEAN CORPUSCULAR HGB CONC 33.7 g/dL (32.0-36.0); MEAN CORPUSCULAR VOLUME 89 fl (80-97); MONOCYTES % (AUTO) 8.3 % (3-13); RED BLOOD COUNT 3.94 10^6/uL (3.72-5.28); RED CELL DISTRIBUTION WIDTH 15.1 % (11.5-14.0); SEGMENTED NEUTROPHILS % (AUTO) 69.3 % (42-78); TOTAL CELLS COUNTED % (AUTO) 100 %; WHITE BLOOD COUNT 5.9 10^3/uL (4.0-10.5)
[2017-10-27 15:01] LABS: ANION GAP 7 (5-19); BLOOD UREA NITROGEN 5 mg/dL (7-20); CALCIUM 9.8 mg/dL (8.4-10.2); CARBON DIOXIDE 35 mmol/L (22-30); CHLORIDE 97 mmol/L (98-107); GLUCOSE 90 mg/dL (75-110); POTASSIUM 4.4 mmol/L (3.6-5.0); SODIUM 138.5 mmol/L (137-145)
--- NOTE | 2017-10-27 15:05 | Physician Advisory Note ---
Physician Advisor ProgressNote .: Pursuant to the plan for [facility], I have reviewed the medical record for this patient. Physician Advisor Statement: Nice documentation of pulmonary HTN. H&P also documents "hypothermia", "septic shock". CT shows emphysema/COPD & bilat pleural effusions. Pt arrived unresponsive/obtunded w/total GCS of only 6. Please consider documenting, if you agree (& continuing to document them through to the [facility]): 1. "Acute Encephalopathy due to , & evidenced by obtundation w/total GCS of 6, hypopnea, ... " - Metabolic, due to septic shock or PNA or ...? Or Toxic, due to drug intox or w/d? - "Delirium" can be due to acute encephalopathy or due to psychiatric condition - if it is not further specified by attending, payer will say it was from a psych cause (lower acuity). 2. "Acute exacerbation of COPD, evidenced by wheezing, Ac Resp Failure, .... on admission" (tx'd w/Solumedrol, nebs) - vs "chronic emphysema/COPD" 3. "Shock, type [septic due to PNA? hypovolemic due to ___? ...], evidenced by tachypnea, Ac Resp Failure, obtundation, recurrent/persistent hypotension requiring at least 4L of IVF boluses & pressor the 1st day, " - or, "ruled out" 4. "Possible pneumonia, suspect [GN? GPos? anaerobic?] type, evidenced by Acute Hypoxemic Resp Failure, tachypnea, infiltrate on CXR, " (tx'd with Merrem) - or, "ruled out" 5. "Bilateral pleural effusions, suspect due to " (lung CA? CHF? PNA?) 6. 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 7. Acute on chronic Hypoxemic Respiratory Failure, evidenced by O2 sat 75% & shallow breathing on her usual 3L O2 for EMS, with continued respiratory distress in ED, with severe acute respiratory acidosis, due to Pneumonia on top of lung CA & emphysema" - Extubated 10/18/17, continued BiPAP through at least . 7. "Acute hypothermia, suspect due to " (sepsis w/septic shock? exposure due to being unclothed when found at home?) 8. "Stage IV lung CA" Thanks! CK
[2017-10-27 15:21] LABS: PLATELET COUNT 84 10^3/uL (150-450)
--- NOTE | 2017-10-27 16:12 | PDOC PROGRESS REPORT ---
Subjective Progress Note for:: 10/27/17 Subjective:: Pt doing well. Pt states that she wants to go to rehab. Reason For Visit: LUNG CANCER STAGE 4,PNEUMONIA Physical Exam Vital Signs: Temp Pulse Resp BP Pulse Ox 97.3 F 85 18 95/57 L 100 10/27/17 11:05 10/27/17 11:05 10/27/17 11:05 10/27/17 11:05 10/27/17 11:05 Intake & Output 10/26/17 10/27/17 10/28/17 06:59 06:59 06:59 Intake Total 886 1061 Output Total 1200 Balance -314 1061 Weight 47.4 kg 47.4 kg General appearance: PRESENT: no acute distress, thin Head exam: PRESENT: atraumatic, normocephalic Eye exam: PRESENT: conjunctiva pink, EOMI. ABSENT: scleral icterus Ear exam: PRESENT: normal external ear exam Mouth exam: PRESENT: moist, tongue midline Neck exam: ABSENT: carotid bruit, JVD, lymphadenopathy, thyromegaly Respiratory exam: PRESENT: clear to auscultation [place]. ABSENT: rales, rhonchi, wheezes Cardiovascular exam: PRESENT: RRR. ABSENT: diastolic murmur, rubs, systolic murmur Pulses: PRESENT: normal dorsalis pedis pul Vascular exam: PRESENT: normal capillary refill GI/Abdominal exam: PRESENT: normal bowel sounds, soft. ABSENT: distended, guarding, mass, organolmegaly, rebound, tenderness Rectal exam: PRESENT: deferred Extremities exam: PRESENT: full ROM. ABSENT: calf tenderness, clubbing, pedal edema Musculoskeletal exam: PRESENT: full ROM Neurological exam: PRESENT: alert, awake, oriented to person, oriented to place , oriented to time, oriented to situation, CN II-XII grossly intact. ABSENT: motor sensory deficit Psychiatric exam: PRESENT: appropriate affect, normal mood. ABSENT: homicidal ideation, suicidal ideation Skin exam: PRESENT: dry, intact, warm. ABSENT: cyanosis, rash Results Laboratory Results: 10/27/17 14:23 10/27/17 14:23 10/27/17 10/27/17 14:23 14:23 WBC 5.9 RBC 3.94 Hgb 11.9 L Hct 35.2 L MCV 89 MCH 30.1 MCHC 33.7 RDW 15.1 H Plt Count 84 L Seg Neutrophils % 69.3 Lymphocytes % 17.5 Monocytes % 8.3 Eosinophils % 4.5 Basophils % 0.4 Absolute Neutrophils 4.1 Absolute Lymphocytes 1.0 Absolute Monocytes 0.5 Absolute Eosinophils 0.3 Absolute Basophils 0.0 Sodium 138.5 Potassium 4.4 Chloride 97 L Carbon Dioxide 35 H Anion Gap 7 BUN 5 L Creatinine 0.49 L Est GFR ( Amer) > 60 Est GFR (Non-Af Amer) > 60 Glucose 90 Calcium 9.8 10/15/17 10/15/17 10/16/17 15:33 21:25 03:42 Troponin I 0.099 0.202 0.150 NT-Pro-B Natriuret Pep 10/17/17 10/17/17 10:00 14:50 Troponin I 0.131 NT-Pro-B Natriuret Pep 635 H Impressions: Chest/Abdomen CTA 10/15/17 00:00 IMPRESSION: 1. NORMAL CTA OF THE CHEST. NO PULMONARY EMBOLI. 2. CAVITARY MASS IN THE ANTERIOR RIGHT LOWER LOBE WITH IRREGULAR THICKENED WALL. THIS PROBABLY REPRESENTS NECROTIC TUMOR ALTHOUGH CAVITARY PNEUMONIA COULD BE POSSIBLE. 3. IRREGULAR SOFT TISSUE MASS IN THE APEX OF THE LEFT CHEST. THIS COULD REPRESENT APICAL SCARRING ALTHOUGH MALIGNANT PROCESS SUSPECTED. 4. CHRONIC EMPHYSEMATOUS CHANGES WITH SCARRING. BILATERAL PLEURAL EFFUSIONS. Chest X-Ray 10/17/17 00:00 IMPRESSION: No acute findings. Stable right lung mass. Support devices in expected locations. Assessment & Plan - Diagnosis (1) Acute and chronic respiratory failure ([id number]) Qualifiers: Respiratory failure complication: hypoxia and hypercapnia Qualified Code(s) : J96.21 - Acute and chronic respiratory failure with hypoxia; J96.22 - Acute and chronic respiratory failure with hypercapnia; J96.22 - Acute and chronic respiratory failure with hypercapnia; J96.22 - Acute and chronic respiratory failure with hypercapnia Is this a current diagnosis for this admission?: Yes Plan: Secondary to lung cancer/ pneumonia:Completed treatment Linezolid and Augmentin. (2) HTN (hypertension) Qualifiers: Hypertension type: essential hypertension Qualified Code(s): I10 - Essential (primary) hypertension Is this a current diagnosis for this admission?: Yes Plan: Will continue current medications. (3) Hallucinations Is this a current diagnosis for this admission?: Yes Plan: Resolved. (4) Lung cancer Qualifiers: Lung location: overlapping sites Is this a current diagnosis for this admission?: Yes Plan: Patient will need follow-up with oncology as outpatient. (5) Pneumonia Qualifiers: Pneumonia type: due to unspecified organism Laterality: unspecified laterality Lung location: unspecified part of lung Qualified Code(s): J18.9 - Pneumonia, unspecified organism Is this a current diagnosis for this admission?: Yes Plan: Completed treatment Augmentin and Linezolid (6) Pulmonary hypertension Is this a current diagnosis for this admission?: Yes Plan: Supportive care. (7) Debility Is this a current diagnosis for this admission?: Yes Plan: PT/OT evaluation. (8) Thrombocytopenia Is this a current diagnosis for this admission?: Yes Plan: Heparin and heparin flushes have been discontinued. Platelets stable. Will continue to monitor. (9) Acute encephalopathy Is this a current diagnosis for this admission?: Yes Plan: Secondary to Sepsis: Resolved. (10) Acute exacerbation of chronic bronchitis Is this a current diagnosis for this admission?: Yes Plan: Secondary to COPD: Completed treatment. (11) Sepsis Is this a current diagnosis for this admission?: Yes Plan: Secondary to Nosocomial Pneumonia and COPD exacerbation: Completed treatment. (12) Bilateral pleural effusion Is this a current diagnosis for this admission?: Yes Plan: Resolved. (13) Acute on chronic systolic and diastolic heart failure, NYHA class 3 Is this a current diagnosis for this admission?: Yes Plan: Resolved. Will continue current medications. (14) Hypothermia Qualifiers: Encounter type: initial encounter Qualified Code(s): T68.XXXA - Hypothermia , initial encounter Is this a current diagnosis for this admission?: Yes Plan: In setting of Sepsis: Resolved. - Time Time Spent with patient: Less than 15 minutes - Awaiting placement.
[2017-10-27] MEDS: OLANZAPINE 5 MG TABLET PO SCH (21:36)
[2017-10-27] MEDS: SIMVASTATIN 40 MG TABLET PO SCH (21:36)
[2017-10-28] MEDS: ALPRAZOLAM 0.25 MG TABLET PO SCH ×3 (05:24→21:02)
[2017-10-28] MEDS: ACETAMINOPHEN 325 MG TABLET PO PRN ×2 (05:25→12:10)
[2017-10-28 08:10] LABS: ABSOLUTE EOSINOPHILS # (AUTO) 0.3 10^3/uL (0.0-0.6); ABSOLUTE MONOCYTES (AUTO) 0.7 10^3/uL (0.1-1.4); BASOPHILS % (AUTO) 0.3 % (0-2); HEMATOCRIT 32.4 % (36.0-47.0); HEMOGLOBIN 10.7 g/dL (12.0-15.5); LYMPHOCYTES % (AUTO) 16.5 % (13-45); MEAN CORPUSCULAR HEMOGLOBIN 29.9 pg (27.0-33.4); MEAN CORPUSCULAR VOLUME 91 fl (80-97); MONOCYTES % (AUTO) 11.1 % (3-13); RED BLOOD COUNT 3.58 10^6/uL (3.72-5.28); RED CELL DISTRIBUTION WIDTH 15.1 % (11.5-14.0); SEGMENTED NEUTROPHILS % (AUTO) 67.1 % (42-78); TOTAL CELLS COUNTED % (AUTO) 100 %
[2017-10-28 08:27] LABS: BLOOD UREA NITROGEN 7 mg/dL (7-20); CALCIUM 8.7 mg/dL (8.4-10.2); CARBON DIOXIDE 35 mmol/L (22-30); CHLORIDE 99 mmol/L (98-107); GLUCOSE 93 mg/dL (75-110); POTASSIUM 4.1 mmol/L (3.6-5.0); SODIUM 138.6 mmol/L (137-145)
[2017-10-28 08:28] LABS: ALANINE AMINOTRANSFERASE 102 U/L (9-52); ALKALINE PHOSPHATASE 77 U/L (38-126); ANION GAP 5 (5-19); ASPARTATE AMINO TRANSFERASE 50 U/L (14-36); BILIRUBIN,DIRECT 0.1 mg/dL (0.0-0.4); BILIRUBIN,TOTAL 0.3 mg/dL (0.2-1.3); TOTAL PROTEIN 4.8 g/dL (6.3-8.2)
[2017-10-28 08:38] LABS: PLATELET COUNT 68 10^3/uL (150-450)
[2017-10-28] MEDS: POTASSIUM CHLORIDE 10 MEQ TABLET.SA PO SCH (12:08)
[2017-10-28] MEDS: ROFLUMILAST 500 MCG TABLET PO SCH (12:09)
[2017-10-28] MEDS: FLUTICASONE/SALMETEROL DISKUS 500-50 MCG/DOSE IH SCH ×2 (12:09→21:01)
[2017-10-28] MEDS: LISINOPRIL 5 MG TABLET PO SCH (12:09)
[2017-10-28] MEDS: METOPROLOL SUCCINATE 25 MG TAB.SR.24H PO SCH (12:10)
[2017-10-28] MEDS: TIOTROPIUM BROMIDE DPI 5 CAP/KIT (18 MCG/CAP) IH SCH (12:11)
--- NOTE | 2017-10-28 14:42 | PDOC PROGRESS REPORT ---
Subjective Progress Note for:: 10/28/17 Subjective:: No new issues. Case management awaiting call from rehab facility. Reason For Visit: LUNG CANCER STAGE 4,PNEUMONIA Physical Exam Vital Signs: Temp Pulse Resp BP Pulse Ox 98.2 F 103 H 18 116/45 L 100 10/28/17 11:56 10/28/17 11:56 10/28/17 11:56 10/28/17 11:56 10/28/17 11:56 Intake & Output 10/27/17 10/28/17 10/29/17 06:59 06:59 06:59 Intake Total 1061 934 236 Output Total 0 Balance 1061 934 236 Weight 47.4 kg 47.3 kg General appearance: PRESENT: no acute distress, thin Head exam: PRESENT: atraumatic, normocephalic Eye exam: PRESENT: conjunctiva pink, EOMI. ABSENT: scleral icterus Ear exam: PRESENT: normal external ear exam Mouth exam: PRESENT: moist, tongue midline Neck exam: ABSENT: carotid bruit, JVD, lymphadenopathy, thyromegaly Respiratory exam: PRESENT: clear to auscultation [place]. ABSENT: rales, rhonchi, wheezes Cardiovascular exam: PRESENT: RRR. ABSENT: diastolic murmur, rubs, systolic murmur Pulses: PRESENT: normal dorsalis pedis pul Vascular exam: PRESENT: normal capillary refill GI/Abdominal exam: PRESENT: normal bowel sounds, soft. ABSENT: distended, guarding, mass, organolmegaly, rebound, tenderness Rectal exam: PRESENT: deferred Extremities exam: PRESENT: full ROM. ABSENT: calf tenderness, clubbing, pedal edema Musculoskeletal exam: PRESENT: full ROM Neurological exam: PRESENT: alert, awake, oriented to person, oriented to place , oriented to time, oriented to situation, CN II-XII grossly intact. ABSENT: motor sensory deficit Psychiatric exam: PRESENT: appropriate affect, normal mood. ABSENT: homicidal ideation, suicidal ideation Skin exam: PRESENT: dry, intact, warm. ABSENT: cyanosis, rash Results Laboratory Results: 10/28/17 07:15 10/28/17 07:15 10/27/17 10/27/17 10/28/17 14:23 14:23 07:15 WBC 5.9 6.0 RBC 3.94 3.58 L Hgb 11.9 L 10.7 L Hct 35.2 L 32.4 L MCV 89 91 MCH 30.1 29.9 MCHC 33.7 33.0 RDW 15.1 H 15.1 H Plt Count 84 L 68 L Seg Neutrophils % 69.3 67.1 Lymphocytes % 17.5 16.5 Monocytes % 8.3 11.1 Eosinophils % 4.5 5.0 Basophils % 0.4 0.3 Absolute Neutrophils 4.1 4.0 Absolute Lymphocytes 1.0 1.0 Absolute Monocytes 0.5 0.7 Absolute Eosinophils 0.3 0.3 Absolute Basophils 0.0 0.0 Sodium 138.5 Potassium 4.4 Chloride 97 L Carbon Dioxide 35 H Anion Gap 7 BUN 5 L Creatinine 0.49 L Est GFR ( Amer) > 60 Est GFR (Non-Af Amer) > 60 Glucose 90 Calcium 9.8 Total Bilirubin AST ALT Alkaline Phosphatase Total Protein Albumin 10/28/17 07:15 WBC RBC Hgb Hct MCV MCH MCHC RDW Plt Count Seg Neutrophils % Lymphocytes % Monocytes % Eosinophils % Basophils % Absolute Neutrophils Absolute Lymphocytes Absolute Monocytes Absolute Eosinophils Absolute Basophils Sodium 138.6 Potassium 4.1 Chloride 99 Carbon Dioxide 35 H Anion Gap 5 BUN 7 Creatinine 0.49 L Est GFR ( Amer) > 60 Est GFR (Non-Af Amer) > 60 Glucose 93 Calcium 8.7 Total Bilirubin 0.3 AST 50 H ALT 102 H Alkaline Phosphatase 77 Total Protein 4.8 L Albumin 3.0 L 10/15/17 10/15/17 10/16/17 15:33 21:25 03:42 Troponin I 0.099 0.202 0.150 NT-Pro-B Natriuret Pep 10/17/17 10/17/17 10:00 14:50 Troponin I 0.131 NT-Pro-B Natriuret Pep 635 H Impressions: Chest/Abdomen CTA 10/15/17 00:00 IMPRESSION: 1. NORMAL CTA OF THE CHEST. NO PULMONARY EMBOLI. 2. CAVITARY MASS IN THE ANTERIOR RIGHT LOWER LOBE WITH IRREGULAR THICKENED WALL. THIS PROBABLY REPRESENTS NECROTIC TUMOR ALTHOUGH CAVITARY PNEUMONIA COULD BE POSSIBLE. 3. IRREGULAR SOFT TISSUE MASS IN THE APEX OF THE LEFT CHEST. THIS COULD REPRESENT APICAL SCARRING ALTHOUGH MALIGNANT PROCESS SUSPECTED. 4. CHRONIC EMPHYSEMATOUS CHANGES WITH SCARRING. BILATERAL PLEURAL EFFUSIONS. Chest X-Ray 10/17/17 00:00 IMPRESSION: No acute findings. Stable right lung mass. Support devices in expected locations. Assessment & Plan - Diagnosis (1) Acute and chronic respiratory failure ([id number]) Qualifiers: Respiratory failure complication: hypoxia and hypercapnia Qualified Code(s) : J96.21 - Acute and chronic respiratory failure with hypoxia; J96.22 - Acute and chronic respiratory failure with hypercapnia; J96.22 - Acute and chronic respiratory failure with hypercapnia; J96.22 - Acute and chronic respiratory failure with hypercapnia Is this a current diagnosis for this admission?: Yes Plan: Secondary to lung cancer/ pneumonia:Completed treatment Linezolid and Augmentin. (2) HTN (hypertension) Qualifiers: Hypertension type: essential hypertension Qualified Code(s): I10 - Essential (primary) hypertension Is this a current diagnosis for this admission?: Yes Plan: Will continue current medications. (3) Hallucinations Is this a current diagnosis for this admission?: Yes Plan: Resolved. (4) Lung cancer Qualifiers: Lung location: overlapping sites Is this a current diagnosis for this admission?: Yes Plan: Patient will need follow-up with oncology as outpatient. (5) Pneumonia Qualifiers: Pneumonia type: due to unspecified organism Laterality: unspecified laterality Lung location: unspecified part of lung Qualified Code(s): J18.9 - Pneumonia, unspecified organism Is this a current diagnosis for this admission?: Yes Plan: Completed treatment Augmentin and Linezolid (6) Pulmonary hypertension Is this a current diagnosis for this admission?: Yes Plan: Supportive care. (7) Debility Is this a current diagnosis for this admission?: Yes Plan: PT/OT evaluation. (8) Thrombocytopenia Is this a current diagnosis for this admission?: Yes Plan: Continue to monitor. (9) Acute encephalopathy Is this a current diagnosis for this admission?: Yes Plan: Secondary to Sepsis: Resolved. (10) Acute exacerbation of chronic bronchitis Is this a current diagnosis for this admission?: Yes Plan: Secondary to COPD: Completed treatment. (11) Sepsis Is this a current diagnosis for this admission?: Yes Plan: Secondary to Nosocomial Pneumonia and COPD exacerbation: Completed treatment. (12) Bilateral pleural effusion Is this a current diagnosis for this admission?: Yes Plan: Resolved. (13) Acute on chronic systolic and diastolic heart failure, NYHA class 3 Is this a current diagnosis for this admission?: Yes Plan: Resolved. Will continue current medications. (14) Hypothermia Qualifiers: Encounter type: initial encounter Qualified Code(s): T68.XXXA - Hypothermia , initial encounter Is this a current diagnosis for this admission?: Yes Plan: In setting of Sepsis: Resolved. - Time Time Spent with patient: Less than 15 minutes - Waiting for placement. Family has selected [facility] case management states that they are waiting to hear if [facility] is able to accept patient
[2017-10-28] MEDS: OLANZAPINE 5 MG TABLET PO SCH (21:01)
[2017-10-28] MEDS: SIMVASTATIN 40 MG TABLET PO SCH (21:01)
[2017-10-29] MEDS: ACETAMINOPHEN 325 MG TABLET PO PRN ×3 (00:51→22:21)
[2017-10-29] MEDS: ALPRAZOLAM 0.25 MG TABLET PO SCH ×3 (05:07→21:28)
[2017-10-29 07:06] LABS: ABSOLUTE EOSINOPHILS # (AUTO) 0.3 10^3/uL (0.0-0.6); ABSOLUTE LYMPHOCYTES (AUTO) 1.1 10^3/uL (0.5-4.7); ABSOLUTE MONOCYTES (AUTO) 0.9 10^3/uL (0.1-1.4); ABSOLUTE NEUT (AUTO) 3.8 10^3/uL (1.7-8.2); BASOPHILS % (AUTO) 0.6 % (0-2); EOSINOPHILS % (AUTO) 5.1 % (0-6); HEMOGLOBIN 10.2 g/dL (12.0-15.5); LYMPHOCYTES % (AUTO) 17.6 % (13-45); MEAN CORPUSCULAR HEMOGLOBIN 30.5 pg (27.0-33.4); MEAN CORPUSCULAR HGB CONC 33.9 g/dL (32.0-36.0); MEAN CORPUSCULAR VOLUME 90 fl (80-97); MONOCYTES % (AUTO) 14.6 % (3-13); RED BLOOD COUNT 3.33 10^6/uL (3.72-5.28); RED CELL DISTRIBUTION WIDTH 15.2 % (11.5-14.0); SEGMENTED NEUTROPHILS % (AUTO) 62.1 % (42-78); TOTAL CELLS COUNTED % (AUTO) 100 %; WHITE BLOOD COUNT 6.1 10^3/uL (4.0-10.5)
[2017-10-29 07:22] LABS: ALANINE AMINOTRANSFERASE 89 U/L (9-52); ALBUMIN 2.7 g/dL (3.5-5.0); ALKALINE PHOSPHATASE 72 U/L (38-126); ASPARTATE AMINO TRANSFERASE 37 U/L (14-36); BILIRUBIN,DIRECT 0.3 mg/dL (0.0-0.4); BILIRUBIN,TOTAL 0.3 mg/dL (0.2-1.3); BLOOD UREA NITROGEN 7 mg/dL (7-20); CALCIUM 8.6 mg/dL (8.4-10.2); CARBON DIOXIDE 31 mmol/L (22-30); CHLORIDE 104 mmol/L (98-107); GLUCOSE 97 mg/dL (75-110); POTASSIUM 4.2 mmol/L (3.6-5.0); TOTAL PROTEIN 4.9 g/dL (6.3-8.2)
[2017-10-29 07:34] LABS: SODIUM 137.1 mmol/L (137-145)
[2017-10-29 07:42] LABS: ANION GAP 2 (5-19)
[2017-10-29 07:44] LABS: PLATELET COUNT 73 10^3/uL (150-450)
[2017-10-29] MEDS: METOPROLOL SUCCINATE 25 MG TAB.SR.24H PO SCH (09:06)
[2017-10-29] MEDS: LISINOPRIL 5 MG TABLET PO SCH (09:07)
[2017-10-29] MEDS: TIOTROPIUM BROMIDE DPI 5 CAP/KIT (18 MCG/CAP) IH SCH (09:08)
[2017-10-29] MEDS: ROFLUMILAST 500 MCG TABLET PO SCH (09:08)
[2017-10-29] MEDS: FLUTICASONE/SALMETEROL DISKUS 500-50 MCG/DOSE IH SCH ×2 (09:09→21:28)
[2017-10-29] MEDS: POTASSIUM CHLORIDE 10 MEQ TABLET.SA PO SCH (09:09)
--- NOTE | 2017-10-29 12:06 | PDOC PROGRESS REPORT ---
Subjective Progress Note for:: 10/29/17 Subjective:: No new issues. Reason For Visit: LUNG CANCER STAGE 4,PNEUMONIA Physical Exam Vital Signs: Temp Pulse Resp BP Pulse Ox 98.7 F 98 19 128/50 H 100 10/29/17 07:44 10/29/17 07:44 10/29/17 07:44 10/29/17 07:44 10/29/17 07:44 Intake & Output 10/28/17 10/29/17 10/30/17 06:59 06:59 06:59 Intake Total 934 774 Output Total 0 Balance 934 774 Weight 47.3 kg 47.1 kg General appearance: PRESENT: no acute distress, thin, well-developed Head exam: PRESENT: atraumatic, normocephalic Eye exam: PRESENT: conjunctiva pink, EOMI. ABSENT: scleral icterus Ear exam: PRESENT: normal external ear exam Mouth exam: PRESENT: moist, tongue midline Neck exam: ABSENT: carotid bruit, JVD, lymphadenopathy, thyromegaly Respiratory exam: PRESENT: clear to auscultation [place]. ABSENT: rales, rhonchi, wheezes Cardiovascular exam: PRESENT: RRR. ABSENT: diastolic murmur, rubs, systolic murmur Pulses: PRESENT: normal dorsalis pedis pul Vascular exam: PRESENT: normal capillary refill GI/Abdominal exam: PRESENT: normal bowel sounds, soft. ABSENT: distended, guarding, mass, organolmegaly, rebound, tenderness Rectal exam: PRESENT: deferred Extremities exam: PRESENT: full ROM. ABSENT: calf tenderness, clubbing, pedal edema Musculoskeletal exam: PRESENT: full ROM Neurological exam: PRESENT: alert, awake, oriented to person, oriented to place , oriented to time, oriented to situation, CN II-XII grossly intact. ABSENT: motor sensory deficit Psychiatric exam: PRESENT: appropriate affect, normal mood. ABSENT: homicidal ideation, suicidal ideation Skin exam: PRESENT: dry, intact, warm. ABSENT: cyanosis, rash Results Laboratory Results: 10/29/17 06:30 10/29/17 06:30 10/29/17 10/29/17 06:30 06:30 WBC 6.1 RBC 3.33 L Hgb 10.2 L Hct 30.0 L MCV 90 MCH 30.5 MCHC 33.9 RDW 15.2 H Plt Count 73 L Seg Neutrophils % 62.1 Lymphocytes % 17.6 Monocytes % 14.6 H Eosinophils % 5.1 Basophils % 0.6 Absolute Neutrophils 3.8 Absolute Lymphocytes 1.1 Absolute Monocytes 0.9 Absolute Eosinophils 0.3 Absolute Basophils 0.0 Sodium 137.1 Potassium 4.2 Chloride 104 Carbon Dioxide 31 H Anion Gap 2 L BUN 7 Creatinine 0.48 L Est GFR ( Amer) > 60 Est GFR (Non-Af Amer) > 60 Glucose 97 Calcium 8.6 Total Bilirubin 0.3 AST 37 H ALT 89 H Alkaline Phosphatase 72 Total Protein 4.9 L Albumin 2.7 L 10/15/17 10/15/17 10/16/17 15:33 21:25 03:42 Troponin I 0.099 0.202 0.150 NT-Pro-B Natriuret Pep 10/17/17 10/17/17 10:00 14:50 Troponin I 0.131 NT-Pro-B Natriuret Pep 635 H Impressions: Chest/Abdomen CTA 10/15/17 00:00 IMPRESSION: 1. NORMAL CTA OF THE CHEST. NO PULMONARY EMBOLI. 2. CAVITARY MASS IN THE ANTERIOR RIGHT LOWER LOBE WITH IRREGULAR THICKENED WALL. THIS PROBABLY REPRESENTS NECROTIC TUMOR ALTHOUGH CAVITARY PNEUMONIA COULD BE POSSIBLE. 3. IRREGULAR SOFT TISSUE MASS IN THE APEX OF THE LEFT CHEST. THIS COULD REPRESENT APICAL SCARRING ALTHOUGH MALIGNANT PROCESS SUSPECTED. 4. CHRONIC EMPHYSEMATOUS CHANGES WITH SCARRING. BILATERAL PLEURAL EFFUSIONS. Chest X-Ray 10/17/17 00:00 IMPRESSION: No acute findings. Stable right lung mass. Support devices in expected locations. Assessment & Plan - Diagnosis (1) Acute and chronic respiratory failure ([id number]) Qualifiers: Respiratory failure complication: hypoxia and hypercapnia Qualified Code(s) : J96.21 - Acute and chronic respiratory failure with hypoxia; J96.22 - Acute and chronic respiratory failure with hypercapnia; J96.22 - Acute and chronic respiratory failure with hypercapnia; J96.22 - Acute and chronic respiratory failure with hypercapnia Is this a current diagnosis for this admission?: Yes Plan: Secondary to lung cancer/ pneumonia:Completed treatment Linezolid and Augmentin. (2) HTN (hypertension) Qualifiers: Hypertension type: essential hypertension Qualified Code(s): I10 - Essential (primary) hypertension Is this a current diagnosis for this admission?: Yes Plan: Will continue current medications. (3) Hallucinations Is this a current diagnosis for this admission?: Yes Plan: Resolved. (4) Lung cancer Qualifiers: Lung location: overlapping sites Is this a current diagnosis for this admission?: Yes Plan: Patient will need follow-up with oncology as outpatient. (5) Pneumonia Qualifiers: Pneumonia type: due to unspecified organism Laterality: unspecified laterality Lung location: unspecified part of lung Qualified Code(s): J18.9 - Pneumonia, unspecified organism Is this a current diagnosis for this admission?: Yes Plan: Completed treatment Augmentin and Linezolid (6) Pulmonary hypertension Is this a current diagnosis for this admission?: Yes Plan: Supportive care. (7) Debility Is this a current diagnosis for this admission?: Yes Plan: PT/OT evaluation. (8) Thrombocytopenia Is this a current diagnosis for this admission?: Yes Plan: Continue to monitor. Will check CBC in am (9) Acute encephalopathy Is this a current diagnosis for this admission?: Yes Plan: Secondary to Sepsis: Resolved. (10) Acute exacerbation of chronic bronchitis Is this a current diagnosis for this admission?: Yes Plan: Secondary to COPD: Completed treatment. (11) Sepsis Is this a current diagnosis for this admission?: Yes Plan: Secondary to Nosocomial Pneumonia and COPD exacerbation: Completed treatment. (12) Bilateral pleural effusion Is this a current diagnosis for this admission?: Yes Plan: Resolved. (13) Acute on chronic systolic and diastolic heart failure, NYHA class 3 Is this a current diagnosis for this admission?: Yes Plan: Resolved. Will continue current medications. (14) Hypothermia Qualifiers: Encounter type: initial encounter Qualified Code(s): T68.XXXA - Hypothermia , initial encounter Is this a current diagnosis for this admission?: Yes Plan: In setting of Sepsis: Resolved. - Time Time Spent with patient: Less than 15 minutes
--- NOTE | 2017-10-29 13:07 | PDOC PROGRESS REPORT ---
Subjective Progress Note for:: 10/21/17 Subjective:: stable Reason For Visit: ACUTE ON CHRONIC RESPIRATORY FAILURE Physical Exam Vital Signs: Temp Pulse Resp BP Pulse Ox 98.0 F 92 16 102/53 L 99 10/23/17 12:00 10/23/17 12:00 10/23/17 12:00 10/23/17 12:00 10/23/17 12:00 Intake & Output 10/22/17 10/23/17 10/24/17 06:59 06:59 06:59 Intake Total 1480 1110 Output Total 2200 2100 Balance -720 -990 Weight 53.7 kg 53.7 kg General appearance: PRESENT: no acute distress, thin, well-developed. ABSENT: cooperative, disheveled Head exam: PRESENT: atraumatic, normocephalic Eye exam: PRESENT: conjunctiva pale, EOMI. ABSENT: nystagmus, periorbital swelling, scleral icterus Mouth exam: PRESENT: moist, neck supple, tongue midline Neck exam: ABSENT: carotid bruit, JVD, lymphadenopathy, thyromegaly, tracheal deviation, tracheostomy Respiratory exam: PRESENT: decreased breath sounds, prolonged expiratory phas, rhonchi, symmetrical, unlabored. ABSENT: rales, retraction, stridor, tachypnea , wheezes Cardiovascular exam: PRESENT: RRR, +S1, +S2 Pulses: PRESENT: normal radial pulses GI/Abdominal exam: PRESENT: diminished bowel sounds, soft Extremities exam: ABSENT: clubbing Musculoskeletal exam: ABSENT: deformity, dislocation Neurological exam: ABSENT: awake, oriented to place, oriented to time, oriented to situation Skin exam: PRESENT: dry, warm Results Laboratory Results: 10/22/17 06:30 10/23/17 05:00 10/23/17 05:00 Sodium 132.4 L Potassium 3.8 Chloride 92 L Carbon Dioxide 34 H Anion Gap 6 BUN 16 Creatinine 0.65 Est GFR ( Amer) > 60 Est GFR (Non-Af Amer) > 60 Glucose 82 Calcium 9.4 10/15/17 10/15/17 10/16/17 15:33 21:25 03:42 Troponin I 0.099 0.202 0.150 NT-Pro-B Natriuret Pep 10/17/17 10/17/17 10:00 14:50 Troponin I 0.131 NT-Pro-B Natriuret Pep 635 H Impressions: Chest/Abdomen CTA 10/15/17 00:00 IMPRESSION: 1. NORMAL CTA OF THE CHEST. NO PULMONARY EMBOLI. 2. CAVITARY MASS IN THE ANTERIOR RIGHT LOWER LOBE WITH IRREGULAR THICKENED WALL. THIS PROBABLY REPRESENTS NECROTIC TUMOR ALTHOUGH CAVITARY PNEUMONIA COULD BE POSSIBLE. 3. IRREGULAR SOFT TISSUE MASS IN THE APEX OF THE LEFT CHEST. THIS COULD REPRESENT APICAL SCARRING ALTHOUGH MALIGNANT PROCESS SUSPECTED. 4. CHRONIC EMPHYSEMATOUS CHANGES WITH SCARRING. BILATERAL PLEURAL EFFUSIONS. Chest X-Ray 10/17/17 00:00 IMPRESSION: No acute findings. Stable right lung mass. Support devices in expected locations. Assessment & Plan - Diagnosis (1) Acute and chronic respiratory failure ([id number]) Qualifiers: Respiratory failure complication: hypoxia and hypercapnia Qualified Code(s) : J96.21 - Acute and chronic respiratory failure with hypoxia; J96.22 - Acute and chronic respiratory failure with hypercapnia; J96.22 - Acute and chronic respiratory failure with hypercapnia; J96.22 - Acute and chronic respiratory failure with hypercapnia Is this a current diagnosis for this admission?: Yes Plan: Stable (2) Lung cancer Qualifiers: Lung location: overlapping sites Is this a current diagnosis for this admission?: Yes Plan: as per oncology (3) Pneumonia Qualifiers: Pneumonia type: due to unspecified organism Laterality: unspecified laterality Lung location: unspecified part of lung Qualified Code(s): J18.9 - Pneumonia, unspecified organism Is this a current diagnosis for this admission?: Yes Plan: carmel species no bacterial pathogens noted (4) Tobacco abuse Is this a current diagnosis for this admission?: Yes Plan: Transdermal nicotine
--- NOTE | 2017-10-29 13:09 | PDOC PROGRESS REPORT ---
Subjective Progress Note for:: 10/24/17 Subjective:: stable Reason For Visit: ACUTE ON CHRONIC RESPIRATORY FAILURE Physical Exam Vital Signs: Temp Pulse Resp BP Pulse Ox 98.2 F 100 20 100/53 L 96 10/25/17 15:59 10/25/17 15:59 10/25/17 15:59 10/25/17 15:59 10/25/17 15:59 Intake & Output 10/24/17 10/25/17 10/26/17 06:59 06:59 06:59 Intake Total 635 370 595 Output Total 260 Balance 375 370 595 Weight 53.7 kg 53.7 kg General appearance: PRESENT: no acute distress, disheveled, thin, well-developed Head exam: PRESENT: atraumatic, normocephalic Eye exam: PRESENT: conjunctiva pale, EOMI. ABSENT: nystagmus, periorbital swelling, scleral icterus Mouth exam: PRESENT: dry mucosa, neck supple, tongue midline Neck exam: ABSENT: carotid bruit, JVD, lymphadenopathy, thyromegaly, tracheal deviation, tracheostomy Respiratory exam: PRESENT: decreased breath sounds, prolonged expiratory phas, rhonchi, symmetrical, unlabored, wheezes. ABSENT: retraction Cardiovascular exam: PRESENT: RRR, +S1, +S2 Pulses: PRESENT: normal radial pulses GI/Abdominal exam: PRESENT: diminished bowel sounds, soft Extremities exam: ABSENT: calf tenderness, clubbing Musculoskeletal exam: ABSENT: deformity, dislocation Neurological exam: PRESENT: awake Psychiatric exam: PRESENT: flat affect Skin exam: PRESENT: dry, warm Results Laboratory Results: 10/24/17 05:20 10/24/17 05:20 10/15/17 10/15/17 10/16/17 15:33 21:25 03:42 Troponin I 0.099 0.202 0.150 NT-Pro-B Natriuret Pep 10/17/17 10/17/17 10:00 14:50 Troponin I 0.131 NT-Pro-B Natriuret Pep 635 H Impressions: Chest/Abdomen CTA 10/15/17 00:00 IMPRESSION: 1. NORMAL CTA OF THE CHEST. NO PULMONARY EMBOLI. 2. CAVITARY MASS IN THE ANTERIOR RIGHT LOWER LOBE WITH IRREGULAR THICKENED WALL. THIS PROBABLY REPRESENTS NECROTIC TUMOR ALTHOUGH CAVITARY PNEUMONIA COULD BE POSSIBLE. 3. IRREGULAR SOFT TISSUE MASS IN THE APEX OF THE LEFT CHEST. THIS COULD REPRESENT APICAL SCARRING ALTHOUGH MALIGNANT PROCESS SUSPECTED. 4. CHRONIC EMPHYSEMATOUS CHANGES WITH SCARRING. BILATERAL PLEURAL EFFUSIONS. Chest X-Ray 10/17/17 00:00 IMPRESSION: No acute findings. Stable right lung mass. Support devices in expected locations. Assessment & Plan - Diagnosis (1) Acute and chronic respiratory failure ([id number]) Qualifiers: Respiratory failure complication: hypoxia and hypercapnia Qualified Code(s) : J96.21 - Acute and chronic respiratory failure with hypoxia; J96.22 - Acute and chronic respiratory failure with hypercapnia; J96.22 - Acute and chronic respiratory failure with hypercapnia; J96.22 - Acute and chronic respiratory failure with hypercapnia Is this a current diagnosis for this admission?: Yes Plan: Stable (2) Lung cancer Qualifiers: Lung location: overlapping sites Is this a current diagnosis for this admission?: Yes Plan: as per oncology (3) Pneumonia Qualifiers: Pneumonia type: due to unspecified organism Laterality: unspecified laterality Lung location: unspecified part of lung Qualified Code(s): J18.9 - Pneumonia, unspecified organism Is this a current diagnosis for this admission?: Yes Plan: carmel species no bacterial pathogens noted (4) Tobacco abuse Is this a current diagnosis for this admission?: Yes Plan: Transdermal nicotine
--- NOTE | 2017-10-29 13:11 | PDOC PROGRESS REPORT ---
Subjective Progress Note for:: 10/25/17 Subjective:: stable Reason For Visit: ACUTE ON CHRONIC RESPIRATORY FAILURE Physical Exam Vital Signs: Temp Pulse Resp BP Pulse Ox 98.2 F 100 20 100/53 L 96 10/25/17 15:59 10/25/17 15:59 10/25/17 15:59 10/25/17 15:59 10/25/17 15:59 Intake & Output 10/24/17 10/25/17 10/26/17 06:59 06:59 06:59 Intake Total 635 370 595 Output Total 260 Balance 375 370 595 Weight 53.7 kg 53.7 kg General appearance: PRESENT: no acute distress, disheveled, thin, well-developed Head exam: PRESENT: atraumatic, normocephalic Eye exam: PRESENT: conjunctiva pale, EOMI. ABSENT: nystagmus, periorbital swelling, scleral icterus Mouth exam: PRESENT: dry mucosa, neck supple, tongue midline Neck exam: ABSENT: carotid bruit, JVD, lymphadenopathy, thyromegaly, tracheal deviation, tracheostomy Respiratory exam: PRESENT: decreased breath sounds, prolonged expiratory phas, rhonchi, symmetrical, unlabored, wheezes. ABSENT: tachypnea Cardiovascular exam: PRESENT: RRR, +S1, +S2 Pulses: PRESENT: normal radial pulses GI/Abdominal exam: PRESENT: diminished bowel sounds, soft Extremities exam: ABSENT: clubbing Musculoskeletal exam: ABSENT: ambulatory, deformity, dislocation Neurological exam: PRESENT: awake Psychiatric exam: PRESENT: flat affect Skin exam: PRESENT: dry, warm Results Laboratory Results: 10/24/17 05:20 10/24/17 05:20 10/15/17 10/15/17 10/16/17 15:33 21:25 03:42 Troponin I 0.099 0.202 0.150 NT-Pro-B Natriuret Pep 10/17/17 10/17/17 10:00 14:50 Troponin I 0.131 NT-Pro-B Natriuret Pep 635 H Impressions: Chest/Abdomen CTA 10/15/17 00:00 IMPRESSION: 1. NORMAL CTA OF THE CHEST. NO PULMONARY EMBOLI. 2. CAVITARY MASS IN THE ANTERIOR RIGHT LOWER LOBE WITH IRREGULAR THICKENED WALL. THIS PROBABLY REPRESENTS NECROTIC TUMOR ALTHOUGH CAVITARY PNEUMONIA COULD BE POSSIBLE. 3. IRREGULAR SOFT TISSUE MASS IN THE APEX OF THE LEFT CHEST. THIS COULD REPRESENT APICAL SCARRING ALTHOUGH MALIGNANT PROCESS SUSPECTED. 4. CHRONIC EMPHYSEMATOUS CHANGES WITH SCARRING. BILATERAL PLEURAL EFFUSIONS. Chest X-Ray 10/17/17 00:00 IMPRESSION: No acute findings. Stable right lung mass. Support devices in expected locations. Assessment & Plan - Diagnosis (1) Acute and chronic respiratory failure ([id number]) Qualifiers: Respiratory failure complication: hypoxia and hypercapnia Qualified Code(s) : J96.21 - Acute and chronic respiratory failure with hypoxia; J96.22 - Acute and chronic respiratory failure with hypercapnia; J96.22 - Acute and chronic respiratory failure with hypercapnia; J96.22 - Acute and chronic respiratory failure with hypercapnia Is this a current diagnosis for this admission?: Yes Plan: Stable (2) Lung cancer Qualifiers: Lung location: overlapping sites Is this a current diagnosis for this admission?: Yes Plan: as per oncology (3) Pneumonia Qualifiers: Pneumonia type: due to unspecified organism Laterality: unspecified laterality Lung location: unspecified part of lung Qualified Code(s): J18.9 - Pneumonia, unspecified organism Is this a current diagnosis for this admission?: Yes Plan: carmel species no bacterial pathogens noted (4) Tobacco abuse Is this a current diagnosis for this admission?: Yes - Plan Summary Plan Summary: patient stable will sign off for now
[2017-10-29] MEDS: OLANZAPINE 5 MG TABLET PO SCH (21:28)
[2017-10-29] MEDS: SIMVASTATIN 40 MG TABLET PO SCH (21:28)
[2017-10-30] MEDS: ALPRAZOLAM 0.25 MG TABLET PO SCH ×3 (05:08→21:10)
[2017-10-30 07:54] LABS: ABSOLUTE EOSINOPHILS # (AUTO) 0.3 10^3/uL (0.0-0.6); ABSOLUTE LYMPHOCYTES (AUTO) 1.1 10^3/uL (0.5-4.7); ABSOLUTE MONOCYTES (AUTO) 0.9 10^3/uL (0.1-1.4); ABSOLUTE NEUT (AUTO) 3.8 10^3/uL (1.7-8.2); BASOPHILS % (AUTO) 0.4 % (0-2); EOSINOPHILS % (AUTO) 4.8 % (0-6); HEMOGLOBIN 11.3 g/dL (12.0-15.5); MEAN CORPUSCULAR HEMOGLOBIN 29.8 pg (27.0-33.4); MEAN CORPUSCULAR HGB CONC 33.1 g/dL (32.0-36.0); MEAN CORPUSCULAR VOLUME 90 fl (80-97); MONOCYTES % (AUTO) 14.3 % (3-13); PLATELET COUNT 96 10^3/uL (150-450); RED BLOOD COUNT 3.78 10^6/uL (3.72-5.28); RED CELL DISTRIBUTION WIDTH 15.5 % (11.5-14.0); SEGMENTED NEUTROPHILS % (AUTO) 62.5 % (42-78); TOTAL CELLS COUNTED % (AUTO) 100 %; WHITE BLOOD COUNT 6.2 10^3/uL (4.0-10.5)
[2017-10-30] MEDS: POTASSIUM CHLORIDE 10 MEQ TABLET.SA PO SCH (10:25)
[2017-10-30] MEDS: LISINOPRIL 5 MG TABLET PO SCH (10:26)
[2017-10-30] MEDS: ROFLUMILAST 500 MCG TABLET PO SCH (10:27)
[2017-10-30] MEDS: METOPROLOL SUCCINATE 25 MG TAB.SR.24H PO SCH (10:27)
[2017-10-30] MEDS: FLUTICASONE/SALMETEROL DISKUS 500-50 MCG/DOSE IH SCH ×2 (10:28→21:10)
[2017-10-30] MEDS: ACETAMINOPHEN 325 MG TABLET PO PRN ×2 (10:30→23:16)
[2017-10-30] MEDS: TIOTROPIUM BROMIDE DPI 5 CAP/KIT (18 MCG/CAP) IH SCH (10:30)
[2017-10-30] MEDS ORDERED: ONDANSETRON 4 MG TAB.RAPDIS PO PRN (14:29)
--- NOTE | 2017-10-30 14:48 | PDOC PROGRESS REPORT ---
Subjective Progress Note for:: 10/30/17 Subjective:: No new issues. Reason For Visit: LUNG CANCER STAGE 4,PNEUMONIA Physical Exam Vital Signs: Temp Pulse Resp BP Pulse Ox 97.5 F 102 H 12 139/56 H 100 10/30/17 07:25 10/30/17 07:25 10/30/17 07:25 10/30/17 07:25 10/30/17 07:25 Intake & Output 10/29/17 10/30/17 10/31/17 06:59 06:59 06:59 Intake Total 774 1169 Balance 774 1169 Weight 47.1 kg 46.4 kg General appearance: PRESENT: no acute distress, well-developed, well-nourished Head exam: PRESENT: atraumatic, normocephalic Eye exam: PRESENT: conjunctiva pink, EOMI. ABSENT: scleral icterus Ear exam: PRESENT: normal external ear exam Mouth exam: PRESENT: moist, tongue midline Neck exam: ABSENT: carotid bruit, JVD, lymphadenopathy, thyromegaly Respiratory exam: PRESENT: other - +coarse breath sounds, No wheezing Cardiovascular exam: PRESENT: RRR. ABSENT: diastolic murmur, rubs, systolic murmur Pulses: PRESENT: normal dorsalis pedis pul Vascular exam: PRESENT: normal capillary refill GI/Abdominal exam: PRESENT: normal bowel sounds, soft. ABSENT: distended, guarding, mass, organolmegaly, rebound, tenderness Rectal exam: PRESENT: deferred Extremities exam: PRESENT: full ROM. ABSENT: calf tenderness, clubbing, pedal edema Musculoskeletal exam: PRESENT: full ROM Neurological exam: PRESENT: alert, awake, oriented to person, oriented to place , oriented to time, oriented to situation, CN II-XII grossly intact. ABSENT: motor sensory deficit Psychiatric exam: PRESENT: appropriate affect, normal mood. ABSENT: homicidal ideation, suicidal ideation Skin exam: PRESENT: dry, intact, warm. ABSENT: cyanosis, rash Results Laboratory Results: 10/30/17 07:19 10/29/17 06:30 10/30/17 07:19 WBC 6.2 RBC 3.78 Hgb 11.3 L Hct 34.0 L MCV 90 MCH 29.8 MCHC 33.1 RDW 15.5 H Plt Count 96 L Seg Neutrophils % 62.5 Lymphocytes % 18.0 Monocytes % 14.3 H Eosinophils % 4.8 Basophils % 0.4 Absolute Neutrophils 3.8 Absolute Lymphocytes 1.1 Absolute Monocytes 0.9 Absolute Eosinophils 0.3 Absolute Basophils 0.0 10/15/17 10/15/17 10/16/17 15:33 21:25 03:42 Troponin I 0.099 0.202 0.150 NT-Pro-B Natriuret Pep 10/17/17 10/17/17 10:00 14:50 Troponin I 0.131 NT-Pro-B Natriuret Pep 635 H Impressions: Chest/Abdomen CTA 10/15/17 00:00 IMPRESSION: 1. NORMAL CTA OF THE CHEST. NO PULMONARY EMBOLI. 2. CAVITARY MASS IN THE ANTERIOR RIGHT LOWER LOBE WITH IRREGULAR THICKENED WALL. THIS PROBABLY REPRESENTS NECROTIC TUMOR ALTHOUGH CAVITARY PNEUMONIA COULD BE POSSIBLE. 3. IRREGULAR SOFT TISSUE MASS IN THE APEX OF THE LEFT CHEST. THIS COULD REPRESENT APICAL SCARRING ALTHOUGH MALIGNANT PROCESS SUSPECTED. 4. CHRONIC EMPHYSEMATOUS CHANGES WITH SCARRING. BILATERAL PLEURAL EFFUSIONS. Chest X-Ray 10/17/17 00:00 IMPRESSION: No acute findings. Stable right lung mass. Support devices in expected locations. Assessment & Plan - Diagnosis (1) Acute and chronic respiratory failure ([id number]) Qualifiers: Respiratory failure complication: hypoxia and hypercapnia Qualified Code(s) : J96.21 - Acute and chronic respiratory failure with hypoxia; J96.22 - Acute and chronic respiratory failure with hypercapnia; J96.22 - Acute and chronic respiratory failure with hypercapnia; J96.22 - Acute and chronic respiratory failure with hypercapnia Is this a current diagnosis for this admission?: Yes Plan: Secondary to lung cancer/ pneumonia:Completed treatment Linezolid and Augmentin. (2) HTN (hypertension) Qualifiers: Hypertension type: essential hypertension Qualified Code(s): I10 - Essential (primary) hypertension Is this a current diagnosis for this admission?: Yes Plan: Will continue current medications. (3) Hallucinations Is this a current diagnosis for this admission?: Yes Plan: Resolved. (4) Lung cancer Qualifiers: Lung location: overlapping sites Is this a current diagnosis for this admission?: Yes Plan: Patient will need follow-up with oncology as outpatient. (5) Pneumonia Qualifiers: Pneumonia type: due to unspecified organism Laterality: unspecified laterality Lung location: unspecified part of lung Qualified Code(s): J18.9 - Pneumonia, unspecified organism Is this a current diagnosis for this admission?: Yes Plan: Completed treatment Augmentin and Linezolid (6) Pulmonary hypertension Is this a current diagnosis for this admission?: Yes Plan: Supportive care. (7) Debility Is this a current diagnosis for this admission?: Yes Plan: PT/OT evaluation. (8) Thrombocytopenia Is this a current diagnosis for this admission?: Yes Plan: Continue to monitor. Improving. (9) Acute encephalopathy Is this a current diagnosis for this admission?: Yes Plan: Secondary to Sepsis: Resolved. (10) Acute exacerbation of chronic bronchitis Is this a current diagnosis for this admission?: Yes Plan: Secondary to COPD: Completed treatment. (11) Sepsis Is this a current diagnosis for this admission?: Yes Plan: Secondary to Nosocomial Pneumonia and COPD exacerbation: Completed treatment. (12) Bilateral pleural effusion Is this a current diagnosis for this admission?: Yes Plan: Resolved. (13) Acute on chronic systolic and diastolic heart failure, NYHA class 3 Is this a current diagnosis for this admission?: Yes Plan: Resolved. Will continue current medications. (14) Hypothermia Qualifiers: Encounter type: initial encounter Qualified Code(s): T68.XXXA - Hypothermia , initial encounter Is this a current diagnosis for this admission?: Yes Plan: In setting of Sepsis: Resolved. - Time Time Spent with patient: Less than 15 minutes
[2017-10-30] MEDS: OLANZAPINE 5 MG TABLET PO SCH (21:10)
[2017-10-30] MEDS: SIMVASTATIN 40 MG TABLET PO SCH (21:10)
[2017-10-31] MEDS: ALPRAZOLAM 0.25 MG TABLET PO SCH ×2 (06:03→13:05)
[2017-10-31 06:12] LABS: ABSOLUTE EOSINOPHILS # (AUTO) 0.2 10^3/uL (0.0-0.6); ABSOLUTE LYMPHOCYTES (AUTO) 1.1 10^3/uL (0.5-4.7); ABSOLUTE MONOCYTES (AUTO) 0.7 10^3/uL (0.1-1.4); ABSOLUTE NEUT (AUTO) 2.9 10^3/uL (1.7-8.2); BASOPHILS % (AUTO) 0.5 % (0-2); HEMATOCRIT 31.5 % (36.0-47.0); HEMOGLOBIN 10.4 g/dL (12.0-15.5); LYMPHOCYTES % (AUTO) 22.9 % (13-45); MEAN CORPUSCULAR HEMOGLOBIN 29.7 pg (27.0-33.4); MEAN CORPUSCULAR VOLUME 90 fl (80-97); PLATELET COUNT 117 10^3/uL (150-450); RED CELL DISTRIBUTION WIDTH 15.1 % (11.5-14.0); SEGMENTED NEUTROPHILS % (AUTO) 57.6 % (42-78); TOTAL CELLS COUNTED % (AUTO) 100 %
[2017-10-31 06:33] LABS: ALANINE AMINOTRANSFERASE 68 U/L (9-52); ALBUMIN 2.9 g/dL (3.5-5.0); ALKALINE PHOSPHATASE 88 U/L (38-126); ASPARTATE AMINO TRANSFERASE 23 U/L (14-36); BILIRUBIN,TOTAL 0.3 mg/dL (0.2-1.3); BLOOD UREA NITROGEN 6 mg/dL (7-20); CALCIUM 9.6 mg/dL (8.4-10.2); GLUCOSE 92 mg/dL (75-110)
[2017-10-31 06:50] LABS: ANION GAP 7 (5-19); POTASSIUM 4.4 mmol/L (3.6-5.0)
[2017-10-31 06:51] LABS: CARBON DIOXIDE 32 mmol/L (22-30); CHLORIDE 97 mmol/L (98-107); SODIUM 135.5 mmol/L (137-145)
[2017-10-31] MEDS: POTASSIUM CHLORIDE 10 MEQ TABLET.SA PO SCH (09:56)
[2017-10-31] MEDS: METOPROLOL SUCCINATE 25 MG TAB.SR.24H PO SCH (09:56)
[2017-10-31] MEDS: ROFLUMILAST 500 MCG TABLET PO SCH (09:57)
[2017-10-31] MEDS: FLUTICASONE/SALMETEROL DISKUS 500-50 MCG/DOSE IH SCH (09:57)
[2017-10-31] MEDS: TIOTROPIUM BROMIDE DPI 5 CAP/KIT (18 MCG/CAP) IH SCH (09:59)
--- NOTE | 2017-10-31 10:23 | PDOC DISCHARGE SUMMARY ---
General - Admit/Disc Date/PCP Admission Date/Primary Care Provider: 10/15/17 13:46 BOUBACAR ACEVEDO MD Discharge Date: 10/31/17 - Discharge Diagnosis (1) Acute and chronic respiratory failure ([id number]) Is this a current diagnosis for this admission?: Yes Summary: Secondary to lung cancer/pneumonia: Patient completed antibiotic treatment. Patient is doing well. (2) HTN (hypertension) Is this a current diagnosis for this admission?: Yes Summary: We will continue current medications. (3) Hallucinations Is this a current diagnosis for this admission?: Yes Summary: Resolved secondary to medication and infection (4) Lung cancer Is this a current diagnosis for this admission?: Yes Summary: Patient will need follow with oncology as outpatient. (5) Pneumonia Is this a current diagnosis for this admission?: Yes Summary: Completed treatment with Augmentin and linezolid (6) Pulmonary hypertension Is this a current diagnosis for this admission?: Yes Summary: Supportive care (7) Debility Is this a current diagnosis for this admission?: Yes Summary: Patient going to rehab for strengthening (8) Thrombocytopenia Is this a current diagnosis for this admission?: Yes Summary: Secondary to heparin: Resolving (9) Acute encephalopathy Is this a current diagnosis for this admission?: Yes Summary: Secondary to sepsis: Resolved (10) Acute exacerbation of chronic bronchitis Is this a current diagnosis for this admission?: Yes Summary: Secondary COPD: Patient completed treatment patient's on rescue inhaler and Advair (11) Sepsis Is this a current diagnosis for this admission?: Yes Summary: Secondary to nosocomial acquired pneumonia and COPD exacerbation: Patient has completed treatment (12) Bilateral pleural effusion Is this a current diagnosis for this admission?: Yes Summary: Resolved (13) Acute on chronic systolic and diastolic heart failure, NYHA class 3 Is this a current diagnosis for this admission?: Yes Summary: Resolved (14) Hypothermia Is this a current diagnosis for this admission?: Yes Summary: In setting of sepsis: Resolved - Additional Information Resuscitation Status: Full Code Discharge Diet: Cardiac Discharge Activity: Activity As Tolerated, Balance Activity w/Rest, Weigh Daily Prescriptions: Alprazolam [Xanax 0.25 mg Tablet] 0.25 mg PO Q8 #5 tablet Olanzapine [Zyprexa 5 mg Tablet] 5 mg PO QHS #5 tablet Home Medications: Albuterol Sulfate [Ventolin 0.083% Neb 2.5 mg/3 mL Ampul] 3 ml NEB Q4 10/15/17 Simvastatin [Zocor 80 mg Tablet] 80 mg PO DAILY 10/15/17 Solifenacin Succinate [Vesicare] 5 mg PO DAILY 10/15/17 Alprazolam [Xanax 0.25 mg Tablet] 0.25 mg PO Q8 #5 tablet 10/31/17 Fluticasone/Salmeterol [Advair 500-50 Diskus 14 Dose/Diskus] 1 inh IH Q12 inhaler 10/31/17 Lisinopril [Prinivil 5 mg Tablet] 2.5 mg PO DAILY tablet 10/31/17 Metoprolol Succinate [Toprol Xl 25 mg Tab.sr] 25 mg PO DAILY tab.sr.24h Olanzapine [Zyprexa 5 mg Tablet] 5 mg PO QHS #5 tablet 10/31/17 Tiotropium [place] [Spiriva Handihaler 5 Cap/Kit (18 Mcg/Cap)] 1 cap IH DAILY kit 10/31/17 History of Present Illness Patient complains of: Found on the floor unresponsive intubated at time of arrival to the emergency department History of Present Illness: SERGEI KENNEDY is a 77 year old female sent into the hospital after being found on the floor unresponsive. Patient was intubated on arrival to the emergency department. Patient was also found to be hypothermic. Patient had been hospitalized at [facility] in October and discharged on October 14. When patient arrived here patient was sent to the ICU where she was treated for nosocomial acquired pneumonia and COPD exacerbation. Hospital Course Hospital Course: Patient is a 68-year-old female that presented to our facility after being found down at home and unresponsive. Patient was intubated and admitted to our hospital. Patient had recently been discharged from [facility] on October 14. Patient was brought to our ICU and placed on vent. Patient was placed on broad-spectrum antibiotics for nosocomial acquired pneumonia and COPD exacerbation. Patient did demonstrate improvement throughout hospitalization was successfully extubated. Patient did have episodes of hallucination which was in setting of sepsis. Once patient's infection resolved patient mental mentation was back to baseline. Patient was noted to complain of debility and therefore will require rehab. Patient did have electrolyte abnormalities which have all been corrected. Patient was noted to have low platelets which was secondary to heparin. Once heparin was discontinued patient's platelets rebounded. Patient's platelets at time of discharge were 117,000. She has been off of antibiotics and work with physical therapy as she waits to go to rehab. No further issues with hallucination or confusion. Physical Exam Vital Signs: Temp Pulse Resp BP Pulse Ox 98.3 F 106 H 16 73/53 L 98 10/31/17 00:13 10/31/17 00:13 10/31/17 00:13 10/31/17 00:13 10/31/17 00:13 Intake & Output 10/30/17 10/31/17 11/01/17 06:59 06:59 06:59 Intake Total 1169 662 Balance 1169 662 Weight 46.4 kg 45.1 kg General appearance: PRESENT: no acute distress, thin Head exam: PRESENT: atraumatic, normocephalic Eye exam: PRESENT: conjunctiva pink, EOMI. ABSENT: scleral icterus Ear exam: PRESENT: normal external ear exam Mouth exam: PRESENT: moist, tongue midline Neck exam: ABSENT: carotid bruit, JVD, lymphadenopathy, thyromegaly Respiratory exam: PRESENT: other - Coarse breath sounds right side. ABSENT: rales, rhonchi, wheezes Cardiovascular exam: PRESENT: RRR. ABSENT: diastolic murmur, rubs, systolic murmur Pulses: PRESENT: normal dorsalis pedis pul Vascular exam: PRESENT: normal capillary refill GI/Abdominal exam: PRESENT: normal bowel sounds, soft. ABSENT: distended, guarding, mass, organolmegaly, rebound, tenderness Rectal exam: PRESENT: deferred Extremities exam: PRESENT: full ROM. ABSENT: calf tenderness, clubbing, pedal edema Neurological exam: PRESENT: alert, awake, oriented to person, oriented to place , oriented to time, oriented to situation, CN II-XII grossly intact. ABSENT: motor sensory deficit Psychiatric exam: PRESENT: appropriate affect, normal mood. ABSENT: homicidal ideation, suicidal ideation Skin exam: PRESENT: dry, intact, warm. ABSENT: cyanosis, rash Results Laboratory Results: 10/31/17 06:01 10/31/17 06:01 10/31/17 10/31/17 06:01 06:01 WBC 5.0 RBC 3.50 L Hgb 10.4 L Hct 31.5 L MCV 90 MCH 29.7 MCHC 33.0 RDW 15.1 H Plt Count 117 L Seg Neutrophils % 57.6 Lymphocytes % 22.9 Monocytes % 14.0 H Eosinophils % 5.0 Basophils % 0.5 Absolute Neutrophils 2.9 Absolute Lymphocytes 1.1 Absolute Monocytes 0.7 Absolute Eosinophils 0.2 Absolute Basophils 0.0 Sodium 135.5 L Potassium 4.4 Chloride 97 L Carbon Dioxide 32 H Anion Gap 7 BUN 6 L Creatinine 0.49 L Est GFR ( Amer) > 60 Est GFR (Non-Af Amer) > 60 Glucose 92 Calcium 9.6 Total Bilirubin 0.3 AST 23 ALT 68 H Alkaline Phosphatase 88 Total Protein 5.0 L Albumin 2.9 L 10/15/17 10/15/17 10/16/17 15:33 21:25 03:42 Troponin I 0.099 0.202 0.150 NT-Pro-B Natriuret Pep 10/17/17 10/17/17 10:00 14:50 Troponin I 0.131 NT-Pro-B Natriuret Pep 635 H Impressions: Chest/Abdomen CTA 10/15/17 00:00 IMPRESSION: 1. NORMAL CTA OF THE CHEST. NO PULMONARY EMBOLI. 2. CAVITARY MASS IN THE ANTERIOR RIGHT LOWER LOBE WITH IRREGULAR THICKENED WALL. THIS PROBABLY REPRESENTS NECROTIC TUMOR ALTHOUGH CAVITARY PNEUMONIA COULD BE POSSIBLE. 3. IRREGULAR SOFT TISSUE MASS IN THE APEX OF THE LEFT CHEST. THIS COULD REPRESENT APICAL SCARRING ALTHOUGH MALIGNANT PROCESS SUSPECTED. 4. CHRONIC EMPHYSEMATOUS CHANGES WITH SCARRING. BILATERAL PLEURAL EFFUSIONS. Chest X-Ray 10/17/17 00:00 IMPRESSION: No acute findings. Stable right lung mass. Support devices in expected locations. Qualifiers - * PATEINT BEING DISCHARGED WITH ANY OF THE FOLLOWING DIAGNOSIS?: No Plan Time Spent: Greater than 30 Minutes
[2017-10-31 12:56] VITALS: BP 122/41
[2017-10-31] MEDS: ACETAMINOPHEN 325 MG TABLET PO PRN (13:01)
[2017-10-31] MEDS: LISINOPRIL 5 MG TABLET PO SCH (13:03)
== END 2017-10-31 15:15 | DRG 871 ==
LOC: ER 10:48 → EH 13:46 → ICU 10-16 00:01 → 5 10-20 12:30
PROVIDERS: ADMIT Emergency Medicine; ATTEND Emergency Medicine
PROC: 02HV33Z Insertion of Infusion Device into Superior Vena Cava, Percutaneous Approach (ICD-10-PCS; principal; 2017-10-15)
PROC: 3E0F73Z Introduction of Anti-inflammatory into Respiratory Tract, Via Natural or Artificial Opening (ICD-10-PCS; 2017-10-15)
PROC: 5A1945Z Respiratory Ventilation, 24-96 Consecutive Hours (ICD-10-PCS; 2017-10-15)
PROC: 0BH17EZ Insertion of Endotracheal Airway into Trachea, Via Natural or Artificial Opening (ICD-10-PCS; 2017-10-15)
PROC: 5A09557 Assistance with Respiratory Ventilation, Greater than 96 Consecutive Hours, Continuous Positive Airway Pressure (ICD-10-PCS; 2017-10-19)
DX: A41.9 Sepsis, unspecified organism (principal); J96.21 Acute and chronic respiratory failure with hypoxia; J18.9 Pneumonia, unspecified organism; G93.40 Encephalopathy, unspecified; I50.43 Acute on chronic combined systolic (congestive) and diastolic (congestive) heart failure; J96.22 Acute and chronic respiratory failure with hypercapnia; R65.21 Severe sepsis with septic shock; R44.3 Hallucinations, unspecified; J44.1 Chronic obstructive pulmonary disease with (acute) exacerbation; J44.0 Chronic obstructive pulmonary disease with (acute) lower respiratory infection; C34.82 Malignant neoplasm of overlapping sites of left bronchus and lung; C34.81 Malignant neoplasm of overlapping sites of right bronchus and lung; Z68.1 Body mass index [BMI] 19.9 or less, adult; I27.20 Pulmonary hypertension, unspecified; D69.59 Other secondary thrombocytopenia; I11.0 Hypertensive heart disease with heart failure; R68.0 Hypothermia, not associated with low environmental temperature; I25.10 Atherosclerotic heart disease of native coronary artery without angina pectoris; F17.210 Nicotine dependence, cigarettes, uncomplicated; E66.01 Morbid (severe) obesity due to excess calories; E87.6 Hypokalemia; I25.2 Old myocardial infarction; Z85.118 Personal history of other malignant neoplasm of bronchus and lung; Z90.49 Acquired absence of other specified parts of digestive tract; Z79.899 Other long term (current) drug therapy
CPT/HCPCS: 36415; 36600; 71045; 71275; 80048; 80053; 81001; 82803; 82962; 83605; 83735; 83880; 84100; 84478; 84484; 85025; 85610; 85730; 87040; 87070; 87086; 87205; 93005; 93010; 93306; 94002; 94003; 94640; 94660; 94799; 96361; 96365; 96367; 96375; 99291; C1751; G8996-GN; G8997-GN; G8998-GN; J0171; J1170; J1630; J1642; J1644; J1940; J2020; J2060; J2185; J2250; J2405; J2543; J2704; J2920; J3010; J3370; J3480; J3490; J7030; J7060; J7512; J7620; S0119; S0164